=== PATIENT | female | born 1970 | race Caucasian/White ===

== ENCOUNTER 2020-08-29 11:39 | Outpatient (REF) | payer OTHER, SELFPAY | END 2020-08-29 11:40 | disposition home or self-care (01) | LOC: HO.LAB 11:39 | PROVIDERS: Visit Provider Internal Medicine | DX: Z12.4 Encounter for screening for malignant neoplasm of cervix (principal) | CPT/HCPCS: 88142 ==

== ENCOUNTER 2020-08-30 11:20 | Outpatient (REF) | payer OTHER, SELFPAY ==
[2020-08-30 14:27] LABS: MANUAL DIFF FLAG NO
[2020-08-30 14:36] LABS: Basophils Percent Auto 0.6 % (0-2); Eosinophils Absolute Auto 0.1 X10*3/uL (0.0-0.4); Eosinophils Percent Auto 1.5 % (0-4); Hematocrit 37.9 % (37-47); Hemoglobin 12.3 g/dl (12.0-16.0); Imm Gran Abs Auto 0.02 X10*3/uL (0.00-0.03); Imm Gran Pct Auto 0.3 % (0.0-0.4); Lymphocytes Absolute Auto 1.7 X10*3/uL (1.2-4.9); Lymphocytes Percent Auto 26.6 % (20-40); Mean Corpuscular HGB Conc 32.5 g/dl (31.0-35.0); Mean Corpuscular Hemoglobin 28.3 pg (27.0-33.0); Mean Corpuscular Volume 87.3 fL (80-98); Mean Platelet Volume 11.7 fL (9.4-12.3); Monocytes Absolute Auto 0.7 X10*3/uL (0.1-1.2); Neutrophils Absolute Auto 3.9 X10*3/uL (2.0-8.3); Platelet Count 228 X10*3/uL (160-400); Red Blood Count 4.34 X10*6/uL (4.20-5.50); Red Cell Distribution Width 12.7 % (11.0-16.0); White Blood Count 6.5 X10*3/uL (4.8-10.8)
[2020-08-30 15:15] LABS: Alanine Aminotransferase 9 U/L (0-31); Albumin Level 4.1 g/dL (3.5-5.0); Alkaline Phosphatase 85 U/L (39-117); Anion Gap 11 (12-20); Aspartate Amino Transferase 13 U/L (5-31); Blood Urea Nitrogen 14 mg/dL (9-16); Calcium 8.8 mg/dL (8.4-10.2); Carbon Dioxide 27 mmol/L (22-29); Chloride 104 mmol/L (96-108); Cholesterol 163 mg/dL; Estimated Glomerular Filt Rate > 60; Glucose Fasting 74 mg/dL (60-99); HDL Cholesterol 72 mg/dL; Iron 123 mcg/dL (30-160); LDL Cholesterol Calculated 80 mg/dl; Percent Iron Saturation 35 % (15-50); Potassium 3.9 mmol/l (3.3-5.1); Sodium 138 mmol/L (135-145); Total Iron Binding Capacity 347 mcg/dL (228-428); Total Protein 7.4 g/dL (6.5-8.0); Triglycerides 55 mg/dL; Unsaturated Iron Binding 224 ug/dL
[2020-08-30 15:35] LABS: Thyroid Stimulating Hormone 1.29 mIU/mL (0.32-4.0)
== END 2020-08-30 11:21 | disposition home or self-care (01) ==
LOC: HO.HMGCLDS 11:20
PROVIDERS: PCP Internal Medicine; Visit Provider Internal Medicine
DX: Z00.00 Encounter for general adult medical examination without abnormal findings (principal); M06.9 Rheumatoid arthritis, unspecified; F41.9 Anxiety disorder, unspecified; R93.3 Abnormal findings on diagnostic imaging of other parts of digestive tract
CPT/HCPCS: 36415; 80053; 80061; 83540; 84443; 85025

== ENCOUNTER 2020-09-28 08:52 | Outpatient (REF) | payer OTHER, SELFPAY | END 2020-09-28 08:53 | disposition home or self-care (01) | LOC: HO.LAB 08:52 | PROVIDERS: Visit Provider Nurse Practitioner Family | DX: Z20.828 Contact with and (suspected) exposure to other viral communicable diseases (principal); J06.9 Acute upper respiratory infection, unspecified | CPT/HCPCS: U0003 ==

== ENCOUNTER 2021-06-02 09:20 | Outpatient (REF) | payer OTHER, SELFPAY ==
--- NOTE | ~2021-06-02 | XR_ITS ---
EXAMINATION: XR CERVICAL SPINE CLINICAL INFORMATION: Neck pain. COMPARISON: None TECHNIQUE: 3 views of the cervical spine were obtained. FINDINGS: There is normal cervical lordosis. The vertebral heights, alignment and disc heights are normal. No visible acute fracture, dislocation or subluxation seen. There is mild ventral spondylosis C5-C6 disc level. No lytic process. The prevertebral soft tissues are normal. XR/XR cervical spine 2V IMPRESSION: Mild ventral spondylosis C5-C6 disc level. No visible acute fracture or dislocation seen.
--- NOTE | ~2021-06-02 | XR_ITS ---
EXAMINATION: XR KNEE, LEFT CLINICAL INFORMATION: Left knee pain. COMPARISON: None TECHNIQUE: Four views of the left knee. FINDINGS: Jlce-[id number] medial compartment joint space narrowing. Tiny medial and patellofemoral compartment marginal osteophytes. No osseous erosion. No fracture or dislocation. No abnormal soft tissue calcification. No significant joint effusion. XR/XR knee LT 4V IMPRESSION: Gska-pu-czxidefv medial and mild patellofemoral compartment osteoarthritis.
== END 2021-06-02 09:21 | disposition home or self-care (01) ==
LOC: HO.HMGCX 09:20
PROVIDERS: PCP Internal Medicine; Visit Provider Internal Medicine
DX: M25.562 Pain in left knee (principal); M54.2 Cervicalgia
CPT/HCPCS: 72040; 73564

== ENCOUNTER 2021-11-16 10:22 | Outpatient (REF) | payer OTHER, SELFPAY ==
--- NOTE | ~2021-11-16 | MM_ITS ---
EXAMINATION: BONE DENSITOMETRY CLINICAL INDICATION: Encounter for screening for osteoporosis. COMPARISON: Baseline BD dated 11/30/2016. TECHNIQUE: Using a [employer] DXA System (software version: 13.1) manufactured by [employer], dual-energy x-ray absorptiometry was performed of the lumbar spine and left hip. The images are of good technical quality. Summary results are attached. FINDINGS: AP SPINE L2-L4 (L3) (excluding L1 and L3): The data of L1-L4 has been changed to exclude the L1 and L3 vertebral bodies, because degenerative changes at these levels may cause overestimation of lumbar spine density. Current: BMD 1.086 g/cm2, Z-score -1.0, T-score -1.0, normal, 0.2% decrease from baseline (<5% change is not significant). Baseline: BMD 1.088 g/cm2. LEFT FEMUR, NECK: Current: BMD 0.923 g/cm2, Z-score -0.3, T-score -0.8, normal. Baseline: BMD 1.074 g/cm2. LEFT FEMUR, TOTAL: Current: BMD 0.919 g/cm2, Z-score -0.5, T-score -0.7, normal, 11.8% decrease from baseline (<5% change is not significant). Baseline: BMD 1.042 g/cm2. IDENTIFIED RISK FACTORS: Menopause, rheumatoid arthritis. HISTORY OF FRACTURE: Stress fractures feet. MEDICATIONS: Calcium supplements or multivitamin, vitamin D. MM/XR DEXA axial skeleton IMPRESSION: 1. DIAGNOSIS: Normal bone density based on the lowest T-score value of -1.0 in the lumbar spine applying World Health Organization criteria. 2. 10-YEAR FRACTURE RISK PREDICTION, FRAX: Major osteoporotic fracture (clinical spine, forearm, hip or shoulder) 8.7%. Hip fracture 0.5%. 3. Treatment Recommendations: NOF guidelines recommend consideration for treatment in postmenopausal women and men age 50 and older presenting with the following: -A hip or vertebral (clinical or morphometric) fracture. -T-score less than or equal to -2.5 at the femoral neck or spine after appropriate evaluation to exclude secondary causes. -Low bone mass at the hip or spine and a 10-year fracture probability by FRAX of greater than or equal to 3% for hip fracture or greater than or equal to 20% for major osteoporotic fracture based on the [place] adapted WHO algorithm. 4. Other Recommendations: All treatment decisions require clinical judgment and consideration of individual patient factors, including patient preferences, comorbidities, previous drug use, risk factors not captured in the FRAX model (e.g. frailty, falls, vitamin D deficiency, increased bone turnover, interval significant decline in bone density) and possible under or overestimation of fracture risk by FRAX. FUTURE SCAN RECOMMENDATION: People with diagnosed cases of osteoporosis or at high risk for fracture should have regular bone mineral density tests. For patients eligible for Medicare, routine testing is allowed once every 2 years. The testing frequency can be increased to one year for patients who have rapidly progressing disease, those who are receiving or discontinuing medical therapy to restore bone mass, or have additional risk factors.
== END 2021-11-16 10:23 | disposition home or self-care (01) ==
LOC: HO.MAMMO 10:22
PROVIDERS: PCP Internal Medicine; Visit Provider Internal Medicine
DX: Z13.820 Encounter for screening for osteoporosis (principal); M85.80 Other specified disorders of bone density and structure, unspecified site; Z78.0 Asymptomatic menopausal state; M05.9 Rheumatoid arthritis with rheumatoid factor, unspecified; Z79.899 Other long term (current) drug therapy
CPT/HCPCS: 77080

== ENCOUNTER 2022-04-05 09:53 | Outpatient (REF) | payer OTHER, SELFPAY ==
[2022-04-05 11:28] LABS: Hematocrit 37.3 % (37.0-47.0); Hemoglobin 12.2 g/dl (12.0-16.0); Mean Corpuscular HGB Conc 32.7 g/dl (31.0-35.0); Mean Corpuscular Hemoglobin 27.7 pg (27.0-33.0); Mean Corpuscular Volume 84.6 fL (80.0-98.0); Mean Platelet Volume 10.6 fL (9.4-12.3); Platelet Count 371 X10*3/uL (160-400); Red Blood Count 4.41 X10*6/uL (4.20-5.50); Red Cell Distribution Width 12.8 % (11.0-16.0); White Blood Count 9.5 X10*3/uL (4.8-10.8)
[2022-04-05 11:56] LABS: Alanine Aminotransferase 12 U/L (0-31); Alkaline Phosphatase 85 U/L (39-117); Anion Gap 13 (12-20); Aspartate Amino Transferase 9 U/L (5-31); Bilirubin Total 0.6 mg/dL (0.0-1.0); Blood Urea Nitrogen 17 mg/dL (9-16); Calcium 9.6 mg/dL (8.4-10.2); Carbon Dioxide 26 mmol/L (22-29); Chloride 106 mmol/L (96-108); Cholesterol 178 mg/dL; Estimated Glomerular Filt Rate > 60; Glucose Fasting 80 mg/dL (60-99); HDL Cholesterol 82 mg/dL; LDL Cholesterol Calculated 83 mg/dl; Potassium 4.1 mmol/L (3.3-5.1); Sodium 141 mmol/L (135-145); Total Protein 7.5 g/dL (6.5-8.0); Triglycerides 65 mg/dL
[2022-04-05 12:16] LABS: TSH reflex Free T4 1.79 uIU/mL (0.32-4.0); Vitamin D 25-OH Total 49.5 ng/mL (>30)
== END 2022-04-05 09:54 | disposition home or self-care (01) ==
LOC: HO.HMGCLDS 09:53
PROVIDERS: PCP Internal Medicine; Visit Provider Internal Medicine
DX: Z00.00 Encounter for general adult medical examination without abnormal findings (principal)
CPT/HCPCS: 36415; 80053; 80061; 82306; 84443; 85027

== ENCOUNTER 2023-02-07 13:55 | Outpatient (REF) | payer OTHER, SELFPAY ==
[2023-02-07 17:29] LABS: Iron 24 mcg/dL (30-160); Percent Iron Saturation 8 % (15-50); Total Iron Binding Capacity 283 mcg/dL (228-428); Unsaturated Iron Binding 259 ug/dL
[2023-02-07 17:57] LABS: TSH reflex Free T4 0.71 uIU/mL (0.32-4.0); Vitamin B12 494 pg/mL (200-900)
== END 2023-02-07 13:56 | disposition home or self-care (01) ==
LOC: HO.HMGCLDS 13:55
PROVIDERS: PCP Internal Medicine; Visit Provider Internal Medicine
DX: R00.2 Palpitations (principal)
CPT/HCPCS: 36415; 82607; 82746; 83540; 84443

== ENCOUNTER → 2023-02-21 10:55 | Outpatient (REF) | payer OTHER, SELFPAY ==
--- NOTE | 2023-02-21 11:00 | CA_ITS ---
Transthoracic Echocardiogram Patient (Last, First, Middle): Zulma Carias, Gender: Female Date of : 1970 Age: 52 Procedure Date: 02/21/2023 Procedure Type: Transthoracic Echocardiogram Location: OP Height: 167.64 cm Weight: 74.84 kg BSA: 1.84 m2 Heart Rate: 59 bpm BP: 120 / 80 mmHg Centerless Grinder Tender: NAREN Oquendo MD: Cynthia Reilly MD Compressor Battery Pellets: Lizandro Duff MD Symptoms: R00.2 - Palpitations Study Quality: Good ECG Rhythm: Sinus Conclusions: - Essentially normal study Findings Left Ventricle Normal left ventricular size, thickness, and systolic function. The visually estimated ejection fraction is between 55-60%. Diastolic function is normal for age. Right Ventricle Normal right ventricular cavity size and systolic function. Atria Both atria are normal in size. There is no evidence of interatrial shunt. Aortic Valve The aortic valve structure and function is likely normal. There is no aortic valve stenosis. There is no aortic valve regurgitation. Mitral Valve Normal mitral valve structure and function. There is trace mitral valve regurgitation. There is no mitral valve stenosis. Pulmonic Valve The pulmonic valve is likely normal. Tricuspid Valve Normal tricuspid valve structure. There is trace tricuspid valve regurgitation. The right ventricular systolic pressure is normal. The right ventricular systolic pressure is 21 mmHg. Normal right atrial pressure. There is no evidence of pulmonary hypertension. Great Vessels All visible segments of the aorta are normal in size. The pulmonary artery was not well visualized. Venous The inferior vena cava is normal in size and collapses greater than 50% with inspiration. Pericardium/Pleural There is no evidence of pericardial effusion. Prior Study Comparison No prior study available for comparison. Measurements 2D Linear Measurements IVSd: 0.95 0.6-0.9/0.6-1.0 cm LVIDd: 5.39 3.9-5.3/4.2-5.9 cm LVIDd Index: 2.93 2.4-3.2/2.2-3.1 cm/m2 LVIDs: 3.49 2.0-3.6 cm LVPWd: 0.98 0.7-1.1 cm LA Diam: 4.10 2.7-3.8/3.0-4.0 cm LAIDs Index: 2.23 1.5-2.3 cm/m2 LV Mass: 243.39 67-162/88-224 g LV Mass Index: 132.28 43-95/49-115 g/m2 LVOT Diam: 2.00 3.0+(-)1.3 cm 2D Systolic Function EF 4C: 54.50 >55% EF 2C: 59.20 >55% EF BiP: 56.40 >55% Mitral Valve MV Pk E: 0.78 MV PK A: 0.69 MV Decel Time: 230.00 E/A: 1.10 E'Lateral: 11.10 E'Medial: 9.03 E/E' Med: 8.60 E/E' Lat: 7.00 PHT: 67.00 MVA PHT: 3.28 Decel Coles: 3.38 Aortic Valve AoV Pk Toby: 1.51 AoV Mn Toby: 1.07 AoV VTI: 0.38 AoV Pk Grad: 9.00 Aov Mn Grad: 5.00 WEST Cont.VTI: 2.19 LVOT LVOT Pk Toby: 1.03 LVOT Mn Toby: 0.77 LVOT VTI: 0.26 LVOT Pk Grad: 4.00 LVOT Mn Grad: 3.00 LVOT Diam: 2.00 LVOT Area: 3.14 Diastolic Function MV Pk E: 0.78 MV Pk A: 0.69 E/A: 1.10 E'Medial: 9.03 E/E' Med: 8.60 E' Laterial: 11.10 E/E' Lat: 7.00 Right Ventricle TAPSE (mm): 29.70 TVS' Toby: 12.90 Tricuspid Valve TR Pk Toby: 2.13 TR Pk Grad: 18.00 RA Press: 3.00 RVSP: 21.00 Great Vessels Aorta Sinus of Valsalva: 3.10 2.0-3.5 cm Ao Asc: 3.30 2.1-3.4 cm Pulmonary Valve PV Pk Toby: 0.89 Peak PV Grad: 3.00 Updated in Other Vendor System with Status of Final Lizandro Duff MD electronically signed on 02/21/2023 5:50:16 PM with status of Final
--- NOTE | 2023-02-21 11:00 | HM_ITS ---
Conclusion: 1. Patient was monitored for total period of 2 days 2. Baseline was normal sinus rhythm with average heart of 74 beats per minute 3. No significant pauses noted 4. Rare PACs noted 5. No patient reported events MTDD
== END ==
LOC: HO.CARD 10:55
PROVIDERS: Visit Provider Internal Medicine
DX: R00.2 Palpitations (principal)
CPT/HCPCS: 93225; 93306

== ENCOUNTER 2023-03-30 08:24 | Outpatient (REF) | payer OTHER, SELFPAY ==
[2023-03-30 11:07] LABS: MANUAL DIFF FLAG NO
[2023-03-30 11:09] LABS: Basophils Percent Auto 0.5 % (0-2); Eosinophils Absolute Auto 0.2 X10*3/uL (0.0-0.4); Eosinophils Percent Auto 2.6 % (0-4); Hematocrit 36.5 % (37.0-47.0); Hemoglobin 11.9 g/dl (12.0-16.0); Imm Gran Abs Auto 0.03 X10*3/uL (0.00-0.03); Imm Gran Pct Auto 0.4 % (0.0-0.4); Lymphocytes Absolute Auto 1.8 X10*3/uL (1.2-4.9); Lymphocytes Percent Auto 24.2 % (20-40); Mean Corpuscular HGB Conc 32.6 g/dl (31.0-35.0); Mean Platelet Volume 10.8 fL (9.4-12.3); Monocytes Absolute Auto 0.7 X10*3/uL (0.1-1.2); Monocytes Percent Auto 10.1 % (2-11); Neutrophils Absolute Auto 4.6 x10*3/uL (2.0-8.3); Neutrophils Percent Auto 62.2 % (45-73); Platelet Count 332 X10*3/uL (160-400); Red Cell Distribution Width 13.1 % (11.0-16.0); White Blood Count 7.4 X10*3/uL (4.8-10.8)
[2023-03-30 11:29] LABS: Iron 40 mcg/dL (30-160); Percent Iron Saturation 15 % (15-50); Total Iron Binding Capacity 261 mcg/dL (228-428); Unsaturated Iron Binding 221 ug/dL
== END 2023-03-30 08:25 | disposition home or self-care (01) ==
LOC: HO.HMGCLDS 08:24
PROVIDERS: PCP Internal Medicine; Visit Provider Internal Medicine
DX: E61.1 Iron deficiency (principal)
CPT/HCPCS: 36415; 83540; 85025

== ENCOUNTER 2023-04-02 09:59 | Outpatient (REF) | payer OTHER, SELFPAY ==
[2023-04-05 02:29] LABS: HPV mRNA E6/E7 Not Detected (Not Detected)
== END 2023-04-02 10:00 | disposition home or self-care (01) ==
LOC: HO.LNP 09:59
PROVIDERS: Visit Provider Internal Medicine
DX: Z00.00 Encounter for general adult medical examination without abnormal findings (principal); Z12.4 Encounter for screening for malignant neoplasm of cervix; Z11.51 Encounter for screening for human papillomavirus (HPV); E55.9 Vitamin D deficiency, unspecified; E61.1 Iron deficiency; M06.9 Rheumatoid arthritis, unspecified
CPT/HCPCS: 87624; 88142

== ENCOUNTER 2023-08-23 08:00 | Outpatient (AMB) | payer OTHER, SELFPAY ==
[2023-08-23 08:01] VITALS: BP 120/74; PULSE 71; O2SAT 99; BMI 27.8
--- NOTE | 2023-08-23 08:01 | A.OFFPC_ITS ---
Vital Signs 08/23/23 08:01 Height 5 ft 6 in Weight 172 lb BMI 27.8 BP 120/74 Blood Pressure Location Lt brachial Position Sitting Pulse 71 Pulse Source Pulse Oximeter Pulse Oximetry (%) 99 Oxygen Delivery Method Room Air Intake Visit Reasons: arthritis, 30 min. Intake Note: Pt is here today for a follow up visit on arthritis. Allergies No Known Allergies Allergy (Verified 08/23/23 08:04) Medication List - Last Reconciled 08/23/23 by Cynthia Reilly MD cholecalciferol (vitamin D3) 25 mcg PO DAILY ferrous sulfate (Feosol) 325 mg PO DAILY folic acid 1 mg PO DAILY glucosamine HCl 500 mg PO DAILY infliximab-dyyb (Inflectra) IV lorazepam 0.5 mg PO DAILY PRN magnesium 250 mg PO DAILY methotrexate sodium 2.5 mg PO 3XW prednisone 10 mg PO DAILY PRN turmeric root extract 500 mg PO DAILY zinc 50 mg PO DAILY Tobacco use date assessed: 08/23/23 Dental Screening Dental Screen Date: 08/23/23 Did you have a dental visit in the last 12 months?: Yes Did you have a dental problem in the last 6 months where you did not have access to dental care?: No Was dental information given to patient?: Patient has dentist HPI arthritis, 30 min. HPI Details Pt presents for f/u arthritis. Pt c/o frequent flare ups. She f/u with [facility] and started Methotrexate with some improvement. [facility] Medical History (Updated 08/23/23 @ 08:47 by Cynthia Reilly MD) Knee pain, left Neck pain Joint pain, knee Annual physical exam Abnormal colonoscopy History of mammogram Anxiety Rheumatoid arthritis Surgical History No pertinent past surgical history Family History Father HTN (hypertension) Stroke Mother No problems noted. Social History Housing: House Alcohol intake: never Patient Tobacco Use Status: Never used Tobacco e-Cigarette/Vaping Use: Never Used Second Hand Smoke Exposure: No service: No Current occupational status: employed Cognitive needs: No Hearing needs: No Vision needs: Yes Questionnaire Thrive Questionnaire Date Thrive assessed: 04/02/23 AUDIT C Alcohol Use Questionnaire (AUDIT-C) 1. How often do you have a drink containing alcohol?: Never 3. How often do you have six or more drinks on one occasion?: Never Total Score: 0 JASWINDER-7 AMB Questionnaire JASWINDER-7 Date JASWINDER - 7 assessed: 04/02/23 Source: Developed by Drs. Brandon Payan, Goldie Pedersen, Zach Rodríguez and colleagues, with an educational caitlyn from [employer]. Review of Systems Const All systems reviewed & are unremarkable except as noted in HPI and below Reports no additional complaints Eyes Reports no additional complaints ENT Reports no additional complaints Card Reports no additional complaints Resp Reports no additional complaints GI Reports no additional complaints Reports no additional complaints Physical exam (Primary Care) Vital Signs: Last Vital Signs Pulse 71 08/23/23 08:01 BP 120/74 08/23/23 08:01 Pulse Ox 99 08/23/23 08:01 Oxygen Delivery Method Room Air 08/23/23 08:01 BMI result Body Mass Index 27.8 Tobacco/Smoking Status: Tobacco use Status Tobacco use date assessed 08/23/23 08/23/23 08:08 Patient Tobacco Use Status Never used Tobacco 08/23/23 08:08 e-Cigarette/Vaping Use Never Used 08/23/23 08:08 Thrive Assessment: Date of Thrive Assessment Date Thrive assessed 04/02/23 08/23/23 08:08 Const General: no acute distress HENMT Ears: hearing grossly normal bilaterally Face and sinus: Yes normal facial exam Eyes General: appearance normal, both eyes and all related structures Resp Auscultation: clear to auscultation bilaterally Cardio Rhythm: regular rhythm Heart sounds: S1 normal heart sound present and S2 normal heart sound present GI Inspection: Yes normal to inspection Palpation (GI): Soft to palpation Assessment and Plan Assessment & Plan (1) Vitamin D deficiency: Code(s): E55.9 - Vitamin D deficiency, unspecified Plan: check the level (2) Iron deficiency: Code(s): E61.1 - Iron deficiency Plan: cont Iron supplement , check the level (3) Rheumatoid arthritis: Comment: f/u ATC Code(s): M06.9 - Rheumatoid arthritis, unspecified Plan: f/u with rheumatology, try Gabapentin 100 mg prn (4) Annual physical exam: Code(s): Z00.00 - Encounter for general adult medical examination without abnormal findings (5) Knee pain, bilateral: Comment: MILD-MODERATE OA of both knees Code(s): M25.561 - Pain in right knee; M25.562 - Pain in left knee Plan: refer to PT Orders: Orders Complete Blood Count Auto Diff Today E55.9 - Vitamin D deficiency, unspecified, E61.1 - Iron deficiency, M06.9 - Rheumatoid arthritis, unspecified, Z00.00 - Encounter for general adult medical examination without abnormal findings Vitamin D 25-OH Total Today E55.9 - Vitamin D deficiency, unspecified, E61.1 - Iron deficiency, M06.9 - Rheumatoid arthritis, unspecified, Z00.00 - Encounter for general adult medical examination without abnormal findings PT Evaluation and Treatment Today M25.561 - Pain in right knee, M25.562 - Pain in left knee Comprehensive [place]. Panel Fast Today E55.9 - Vitamin D deficiency, unspecified, E61.1 - Iron deficiency, M06.9 - Rheumatoid arthritis, unspecified, Z00.00 - En counter for general adult medical examination without abnormal findings Lipid Panel Today E55.9 - Vitamin D deficiency, unspecified, E61.1 - Iron deficiency, M06.9 - Rheumatoid arthritis, unspecified, Z00.00 - Encounter for general adult medical examination without abnormal findings IRON PROFILE Today E55.9 - Vitamin D deficiency, unspecified, E61.1 - Iron deficiency, M06.9 - Rheumatoid arthritis, unspecified, Z00.00 - Encounter for general adult medical examination without abnormal findings TSH reflex Free T4 Today E55.9 - Vitamin D deficiency, unspecified, E61.1 - Iron deficiency, M06.9 - Rheumatoid arthritis, unspecified, Z00.00 - Encounter for general adult medical examination without abnormal findings Medications: New gabapentin 100 mg PO TID 60 caps 0RF Coding Level of Care Code Est Pt Level 3 (46631) Diagnoses Vitamin D deficiency E55.9 Iron deficiency E61.1 Rheumatoid arthritis M06.9 Annual physical exam Z00.00 Knee pain, bilateral M25.561; M25.562
== END 2023-08-23 10:35 | disposition home or self-care (01) ==
PROVIDERS: PCP Internal Medicine; Visit Provider Internal Medicine
DX: E55.9 Vitamin D deficiency, unspecified (principal); E61.1 Iron deficiency; M06.9 Rheumatoid arthritis, unspecified; Z00.00 Encounter for general adult medical examination without abnormal findings; M25.561 Pain in right knee; M25.562 Pain in left knee
CPT/HCPCS: 99213

== ENCOUNTER 2023-08-23 08:35 | Outpatient (REF) | payer OTHER, SELFPAY ==
[2023-08-23 12:01] LABS: MANUAL DIFF FLAG NO
[2023-08-23 12:27] LABS: Basophils Absolute Auto 0.1 X10*3/uL (0.0-0.2); Basophils Percent Auto 0.9 % (0-2); Eosinophils Absolute Auto 0.2 X10*3/uL (0.0-0.4); Eosinophils Percent Auto 2.7 % (0-4); Hematocrit 36.5 % (37.0-47.0); Hemoglobin 11.9 g/dl (12.0-16.0); Imm Gran Abs Auto 0.03 X10*3/uL (0.00-0.03); Imm Gran Pct Auto 0.4 % (0.0-0.4); Lymphocytes Absolute Auto 2.7 X10*3/uL (1.2-4.9); Lymphocytes Percent Auto 38.5 % (20-40); Mean Corpuscular HGB Conc 32.6 g/dl (31.0-35.0); Mean Corpuscular Hemoglobin 27.3 pg (27.0-33.0); Mean Corpuscular Volume 83.7 fL (80.0-98.0); Mean Platelet Volume 11.5 fL (9.4-12.3); Monocytes Absolute Auto 0.6 X10*3/uL (0.1-1.2); Neutrophils Absolute Auto 3.5 x10*3/uL (2.0-8.3); Neutrophils Percent Auto 49.5 % (45-73); Platelet Count 345 X10*3/uL (160-400); Red Blood Count 4.36 X10*6/uL (4.20-5.50)
[2023-08-23 12:54] LABS: Alanine Aminotransferase 8 U/L (0-31); Albumin Level 3.9 g/dL (3.5-5.0); Alkaline Phosphatase 83 U/L (39-117); Anion Gap 13 (12-20); Aspartate Amino Transferase 12 U/L (5-31); Bilirubin Total 0.5 mg/dL (0.0-1.0); Blood Urea Nitrogen 12 mg/dL (9-16); Calcium 9.8 mg/dL (8.4-10.2); Carbon Dioxide 24 mmol/L (22-29); Chloride 106 mmol/L (96-108); Cholesterol 176 mg/dL (<200); Estimated Glomerular Filt Rate > 60; Glucose Fasting 87 mg/dL (60-99); HDL Cholesterol 66 mg/dL (>40); Iron 76 mcg/dL (30-160); LDL Cholesterol Calculated 91 mg/dL (<100); Percent Iron Saturation 27 % (15-50); Potassium 3.6 mmol/L (3.3-5.1); Sodium 139 mmol/L (135-145); Total Iron Binding Capacity 279 mcg/dL (228-428); Total Protein 7.8 g/dL (6.5-8.0); Triglycerides 99 mg/dL (<150); Unsaturated Iron Binding 203 ug/dL
[2023-08-23 13:12] LABS: TSH reflex Free T4 1.96 uIU/mL (0.32-4.0); Vitamin D 25-OH Total 49.7 ng/mL (>30)
[2023-08-23 13:19] LABS: Folate 14.4 ng/mL (> or = 4.0); Vitamin B12 1144 pg/mL (200-900)
== END 2023-08-23 08:36 | disposition home or self-care (01) ==
LOC: HO.HMGCLDS 08:35
PROVIDERS: PCP Internal Medicine; Visit Provider Internal Medicine
DX: Z00.00 Encounter for general adult medical examination without abnormal findings (principal); E55.9 Vitamin D deficiency, unspecified; E61.1 Iron deficiency; M06.9 Rheumatoid arthritis, unspecified; R79.89 Other specified abnormal findings of blood chemistry
CPT/HCPCS: 36415; 80053; 80061; 82306; 82607; 82746; 83540; 84443; 85025

== ENCOUNTER 2024-04-04 08:21 | Outpatient (REF) | payer OTHER, SELFPAY ==
[2024-04-04 11:04] LABS: MANUAL DIFF FLAG NO
[2024-04-04 11:14] LABS: Basophils Absolute Auto 0.1 X10*3/uL (0.0-0.2); Basophils Percent Auto 0.9 % (0-2); Eosinophils Absolute Auto 0.2 X10*3/uL (0.0-0.4); Eosinophils Percent Auto 2.5 % (0-4); Hematocrit 38.3 % (37.0-47.0); Hemoglobin 12.7 g/dl (12.0-16.0); Imm Gran Abs Auto 0.03 X10*3/uL (0.00-0.03); Imm Gran Pct Auto 0.5 % (0.0-0.4); Lymphocytes Absolute Auto 2.6 X10*3/uL (1.2-4.9); Lymphocytes Percent Auto 39.9 % (20-40); Mean Corpuscular HGB Conc 33.2 g/dl (31.0-35.0); Mean Corpuscular Hemoglobin 28.6 pg (27.0-33.0); Mean Corpuscular Volume 86.3 fL (80.0-98.0); Mean Platelet Volume 10.8 fL (9.4-12.3); Monocytes Absolute Auto 0.5 X10*3/uL (0.1-1.2); Monocytes Percent Auto 6.9 % (2-11); Neutrophils Absolute Auto 3.2 x10*3/uL (2.0-8.3); Neutrophils Percent Auto 49.3 % (45-73); Platelet Count 316 X10*3/uL (160-400); Red Blood Count 4.44 X10*6/uL (4.20-5.50); Red Cell Distribution Width 13.2 % (11.0-16.0); White Blood Count 6.5 X10*3/uL (4.8-10.8)
[2024-04-04 11:44] LABS: Alanine Aminotransferase 11 U/L (0-31); Albumin Level 3.8 g/dL (3.5-5.0); Aspartate Amino Transferase 11 U/L (5-31); C Reactive Protein 0.37 mg/dL (< or = 0.50); Estimated Glomerular Filt Rate > 60
[2024-04-04 11:51] LABS: Erythrocyte Sedimentation Rate 13 MM/HR (0-20)
[2024-04-04 12:00] LABS: Alanine Aminotransferase 11 U/L (0-31); Albumin Level 3.8 g/dL (3.5-5.0); Alkaline Phosphatase 86 U/L (39-117); Anion Gap 11 (12-20); Aspartate Amino Transferase 13 U/L (5-31); Bilirubin Total 0.4 mg/dL (0.0-1.0); Blood Urea Nitrogen 15 mg/dL (9-16); Calcium 9.4 mg/dL (8.4-10.2); Carbon Dioxide 25 mmol/L (22-29); Chloride 109 mmol/L (96-108); Cholesterol 179 mg/dL (<200); Estimated Glomerular Filt Rate > 60; Glucose Fasting 85 mg/dL (60-99); HDL Cholesterol 72 mg/dL (>40); Iron 70 mcg/dL (30-160); LDL Cholesterol Calculated 94 mg/dL (<100); Percent Iron Saturation 24 % (15-50); Potassium 3.7 mmol/L (3.3-5.1); Sodium 141 mmol/L (135-145); Total Iron Binding Capacity 294 mcg/dL (228-428); Total Protein 7.6 g/dL (6.5-8.0); Triglycerides 65 mg/dL (<150); Unsaturated Iron Binding 224 ug/dL
[2024-04-04 12:06] LABS: Vitamin D 25-OH Total 41.1 ng/mL (>30)
== END 2024-04-04 08:22 | disposition home or self-care (01) ==
LOC: HO.HMGCLDS 08:21
PROVIDERS: Internal Medicine Rheumatology; PCP Internal Medicine; Visit Provider Internal Medicine
DX: Z00.00 Encounter for general adult medical examination without abnormal findings (principal); M06.9 Rheumatoid arthritis, unspecified; E66.1 Drug-induced obesity; E55.9 Vitamin D deficiency, unspecified; Z79.899 Other long term (current) drug therapy
CPT/HCPCS: 36415; 80053; 80061; 82040; 82306; 82565; 83540; 84443; 84450; 84460; 85025; 85652; 86140

== ENCOUNTER 2024-04-07 10:31 | Outpatient (AMB) | payer OTHER, SELFPAY ==
--- NOTE | 2024-04-07 10:34 | A.OFFPC_ITS ---
Vital Signs 04/07/24 10:39 Height 5 ft 6 in Weight 174 lb BMI 28.1 BP 128/66 Blood Pressure Location Lt brachial Position Sitting Pulse 56 Pulse Source Pulse Oximeter Pulse Oximetry (%) 98 Oxygen Delivery Method Room Air Intake Visit Reasons: PE Intake Note: Pt is here today for PE. Allergies No Known Allergies Allergy (Verified 04/07/24 10:40) Medication List - Last Reconciled 04/07/24 by Cynthia Reilly MD cholecalciferol (vitamin D3) 25 mcg PO DAILY ferrous sulfate (Feosol) 325 mg PO DAILY folic acid 1 mg PO DAILY gabapentin 100 mg PO TID glucosamine HCl 500 mg PO DAILY infliximab-dyyb (Inflectra) IV lorazepam 0.5 mg PO DAILY PRN magnesium 250 mg PO DAILY methotrexate sodium 2.5 mg PO 3XW prednisone 5 mg PO DAILY turmeric root extract 500 mg PO DAILY zinc 50 mg PO DAILY Tobacco use date assessed: 04/07/24 Dental Screening Dental Screen Date: 04/07/24 Did you have a dental visit in the last 12 months?: Yes Did you have a dental problem in the last 6 months where you did not have access to dental care?: No Was dental information given to patient?: Patient has dentist HPI PE HPI Details Pt presents for PE. PFSH Medical History High serum vitamin B12 Knee pain, left Neck pain Joint pain, knee Annual physical exam Abnormal colonoscopy History of mammogram Anxiety Rheumatoid arthritis Surgical History No pertinent past surgical history Family History Father HTN (hypertension) Stroke Mother No problems noted. Social History Housing: House Alcohol intake: never Patient Tobacco Use Status: Never used Tobacco e-Cigarette/Vaping Use: Never Used Second Hand Smoke Exposure: No service: No Current occupational status: employed Cognitive needs: No Hearing needs: No Vision needs: Yes Questionnaire PHQ-9 Over the last 2 weeks, how often have you been bothered by any of the following problems? 1. Little interest or pleasure in doing things: not at all 2. Feeling down, depressed, or hopeless: several days 3. Trouble falling or staying asleep, or sleeping too much: several days 4. Feeling tired or having little energy: several days 5. Poor appetite or overeating: several days 6. Feeling bad about yourself - or that you are a failure or have let yourself or your family down: not at all 7. Trouble concentrating on things, such as reading the newspaper or watching television: not at all 8. Moving or speaking so slowly that other people could have noticed. Or the opposite - being so fidgety or restless that you have been moving around a lot more than usual: several days 9. Thoughts that you would be better off or of hurting yourself in some way: not at all Total score: 5 Depression Screening Interpretation: Negative Depression Screening Done: Yes Source: Developed by Drs. Brandon Payan, Goldie Pedersen, Zach Rodríguez and colleagues, with an educational caitlyn from [employer]. Thrive Questionnaire Date Thrive assessed: 04/07/24 I am a: Patient What is your living situation today?: I have a steady place to live Within the past 12 months, did the food you bought not last and you didn't have the money to get more?: Never true Within the past 12 months, did you worry whether your food would run out before you got money to buy more?: Never true Do you have trouble paying for medicines?: No Do you have trouble getting transportation to medical appointments?: No Do you have trouble paying your heating and electricity bill?: No Do you have trouble taking care of your child, family member or friend?: No Do you have trouble with day-to-day activities such as bathing, preparing meals, shopping, managing finances, etc.?: No Are you currently unemployed and looking for a job?: No Are you interested in more education?: No Please select the resources that you would like help with: None THRIVE Score: 0 AUDIT C Alcohol Use Questionnaire (AUDIT-C) 1. How often do you have a drink containing alcohol?: Monthly or less 2. How many drinks containing alcohol do you have on a typical day when you are drinking?: 1 or 2 3. How often do you have six or more drinks on one occasion?: Never Total Score: 1 JASWINDER-7 AMB Questionnaire JASWINDER-7 Date JASWINDER - 7 assessed: 04/07/24 Feeling nervous, anxious, or on edge: 1 = Several days Not being able to stop or control worryin = Several days Worrying too much about different things: 1 = Several days Trouble relaxin = Several days Being so restless that it is hard to sit still: 1 = Several days Becoming easily annoyed or irritable: 1 = Several days Feeling afraid as if something awful might happen: 1 = Several days Total JASWINDER-7 score (0-4 normal; 5-9 mild; 10-14 moderate; 15-21 severe): 7 Source: Developed by Drs. Brandon Payan, Goldie Pedersen, Zach Rodríguez and colleagues, with an educational caitlyn from [employer]. Review of Systems Const All systems reviewed & are unremarkable except as noted in HPI and below Reports no additional complaints Eyes Reports no additional complaints ENT Reports no additional complaints Card Reports no additional complaints Resp Reports no additional complaints GI Reports no additional complaints Reports no additional complaints Physical exam (Primary Care) Vital Signs: Last Vital Signs Pulse 56 04/07/24 10:39 BP 128/66 04/07/24 10:39 Pulse Ox 98 04/07/24 10:39 Oxygen Delivery Method Room Air 04/07/24 10:39 BMI result Body Mass Index 28.1 Tobacco/Smoking Status: Tobacco use Status Tobacco use date assessed 04/07/24 04/07/24 10:51 Patient Tobacco Use Status Never used Tobacco 04/07/24 10:51 e-Cigarette/Vaping Use Never Used 04/07/24 10:35 PHQ-9: PHQ-9 Score PHQ-9: Total score 5 04/07/24 10:51 Depression Screening Interpretation: Negative Thrive Assessment: Date of Thrive Assessment Date Thrive assessed 04/07/24 04/07/24 10:51 Const General: no acute distress HENMT Head: Yes normal to inspection Ears: hearing grossly normal bilaterally General nose exam: Normal external nose present Face and sinus: Yes normal facial exam Mouth: Normal oral and palatal mucosa present Throat: Yes posterior oropharynx normal Eyes General: appearance normal, both eyes and all related structures Neck Neck: Yes no lymphadenopathy and Yes supple Resp Effort & Inspection: normal respiratory effort Auscultation: clear to auscultation bilaterally Cardio Rhythm: regular rhythm Heart sounds: S1 normal heart sound present and S2 normal heart sound present GI Inspection: Yes normal to inspection Palpation (GI): Soft to palpation Percussion: Yes normal to percussion Auscultation: normal bowel sounds Assessment and Plan Assessment & Plan (1) Rheumatoid arthritis: Comment: f/u ATC Code(s): M06.9 - Rheumatoid arthritis, unspecified Plan: f/u with rheumatology (2) Annual physical exam: Code(s): Z00.00 - Encounter for general adult medical examination without abnormal findings Plan: well balanced diet, regular exercise discussed, patient is up-to-date with the mammogram colonoscopy final Pap smear (3) Vitamin D deficiency: Code(s): E55.9 - Vitamin D deficiency, unspecified Orders: Orders Complete Blood Count Auto Diff 1 Year E55.9 - Vitamin D deficiency, unspecified, M06.9 - Rheumatoid arthritis, unspecified, Z00.00 - Encounter for general adult medical examination without abnormal findings Comprehensive [place]. Panel Fast 1 Year E55.9 - Vitamin D deficiency, unspecified, M06.9 - Rheumatoid arthritis, unspecified, Z00.00 - Encounter for general adult medical examination without abnormal findings Lipid Panel 1 Year E55.9 - Vitamin D deficiency, unspecified, M06.9 - Rheumatoid arthritis, unspecified, Z00.00 - Encounter for general adult medical examination without abnormal findings TSH reflex Free T4 1 Year E55.9 - Vitamin D deficiency, unspecified, M06.9 - Rheumatoid arthritis, unspecified, Z00.00 - Encounter for general adult medical examination without abnormal findings Vitamin D 25-OH Total 1 Year E55.9 - Vitamin D deficiency, unspecified, M06.9 - Rheumatoid arthritis, unspecified, Z00.00 - Encounter for general adult medical examination without abnormal findings Medications: Discontinued gabapentin Discontinued Reason: Doctor's Order 100 mg PO TID 60 caps 0RF Coding Level of Care Code Est Pt Prev Care 40-64y(49729) Diagnoses Rheumatoid arthritis M06.9 Annual physical exam Z00.00 Vitamin D deficiency E55.9
[2024-04-07 10:39] VITALS: BP 128/66; PULSE 56; O2SAT 98; BMI 28.1
== END 2024-04-07 11:41 | disposition home or self-care (01) ==
PROVIDERS: Visit Provider Internal Medicine
DX: M06.9 Rheumatoid arthritis, unspecified (principal); Z00.00 Encounter for general adult medical examination without abnormal findings; E55.9 Vitamin D deficiency, unspecified
CPT/HCPCS: 99396

== ENCOUNTER 2024-04-29 10:36 | Outpatient (AMB) | payer OTHER, SELFPAY ==
[2024-04-29 10:36] VITALS: BP 110/80; PULSE 69; O2SAT 98; BMI 28.6
--- NOTE | 2024-04-29 10:36 | MHC.OFFWIV ---
Intake Vital Signs 04/29/24 10:36 Height 5 ft 6 in Weight 177 lb 8 oz BMI 28.6 BP 110/80 Blood Pressure Location Rt brachial Position Sitting Pulse 69 Pulse Source Pulse Oximeter Pulse Oximetry (%) 98 Oxygen Delivery Method Room Air Intake Visit Reasons: EP ear pain RT ear 10 days Intake Note: pt is here today for ear pain rt ear started 10 days ago Patient Tobacco Use Status: Never used Tobacco Allergies No Known Allergies Allergy (Verified 04/29/24 10:39) Medication List - Last Reconciled 04/29/24 by Sirena Jones MD cholecalciferol (vitamin D3) 25 mcg PO DAILY ferrous sulfate (Feosol) 325 mg PO DAILY folic acid 1 mg PO DAILY infliximab-dyyb (Inflectra) IV lorazepam 0.5 mg PO DAILY PRN magnesium 250 mg PO DAILY methotrexate sodium 12.5 mg PO 3XW prednisone 5 mg PO DAILY turmeric root extract 500 mg PO DAILY zinc 50 mg PO DAILY Do you need a note to return to daycare/school/sports/work: No HPI EP ear pain RT ear 10 days HPI Details 53-year-old female with a history of rheumatoid arthritis and is on biologic came in with a chief complaint of ear pain for the past 10 days duration Patient says that she just saw her technical support professional and her medications were increased As she is having flare-up of her rheumatoid arthritis. She is also on prednisone 2.5 mg b.i.d. which she has been taking for a while There is no fever no chills Patient says that it all started after bike ride 10 days ago On examination there is no ear infection, however her temporomandibular joint is tender to pressure I would recommend to go up on prednisone, start taking 10 mg b.i.d. for 5 days and then taper it off to 5 mg b.i.d. for 3 days and then back to 2.5 mg b.i.d. as her baseline dose She is taking Tylenol as well for pain. Review system is negative for any nausea vomiting chest pain shortness a breath [facility] Medical History High serum vitamin B12 Knee pain, left Neck pain Joint pain, knee Annual physical exam Abnormal colonoscopy History of mammogram Anxiety Rheumatoid arthritis Surgical History No pertinent past surgical history Family History Father HTN (hypertension) Stroke Mother No problems noted. Social History Housing: House Alcohol intake: never Patient Tobacco Use Status: Never used Tobacco e-Cigarette/Vaping Use: Never Used Second Hand Smoke Exposure: No service: No Current occupational status: employed Cognitive needs: No Hearing needs: No Vision needs: Yes Review of Systems Const All systems reviewed & are unremarkable except as noted in HPI and below Physical Exam Vital Signs: Last Vital Signs Pulse 69 04/29/24 10:36 BP 110/80 04/29/24 10:36 Pulse Ox 98 04/29/24 10:36 Oxygen Delivery Method Room Air 04/29/24 10:36 BMI result Body Mass Index 28.6 Const General: no acute distress Orientation/consciousness: patient oriented x3 HEENT Head images: 1. Site of pain with pressure over the joint, no pain with tricuspid pressure Eyes General: appearance normal, both eyes and all related structures Resp Effort & Inspection: normal respiratory effort and able to speak in complete sentences Neuro General: patient oriented x3 Psych Mental Status: mental status grossly normal Assessment & Plan Assessment & Plan (1) Arthralgia of right temporomandibular joint: Code(s): M26.621 - Arthralgia of right temporomandibular joint Plan 53-year-old female with a history of rheumatoid arthritis and is on biologic came in with a chief complaint of ear pain for the past 10 days duration Patient says that she just saw her technical support professional and her medications were increased As she is having flare-up of her rheumatoid arthritis. She is also on prednisone 2.5 mg b.i.d. which she has been taking for a while There is no fever no chills Patient says that it all started after bike ride 10 days ago On examination there is no ear infection, however her temporomandibular joint is tender to pressure I would recommend to go up on prednisone, start taking 10 mg b.i.d. for 5 days and then taper it off to 5 mg b.i.d. for 3 days and then back to 2.5 mg b.i.d. as her baseline dose She is taking Tylenol as well for pain. Review system is negative for any nausea vomiting chest pain shortness a breath Coding Level of Care Code Est Pt Level 3 (52030) Diagnoses Arthralgia of right temporomandibular joint M26.621
== END 2024-04-29 11:50 | disposition home or self-care (01) ==
PROVIDERS: PCP Internal Medicine; Visit Provider Internal Medicine
DX: M26.621 Arthralgia of right temporomandibular joint (principal)
CPT/HCPCS: 99213

== ENCOUNTER 2024-07-08 11:04 | Outpatient (AMB) | payer OTHER, SELFPAY ==
[2024-07-08 11:06] VITALS: BP 132/88; PULSE 67; O2SAT 98; BMI 28.9
--- NOTE | 2024-07-08 11:06 | AM.OFFWIN_ITS ---
Intake Vital Signs 07/08/24 11:06 Height 5 ft 6 in Weight 179 lb 6 oz BMI 28.9 BP 132/88 Blood Pressure Location Lt brachial Position Sitting Pulse 67 Pulse Source Pulse Oximeter Pulse Oximetry (%) 98 Oxygen Delivery Method Room Air Intake Visit Reasons: ep rt toe nail black spot Intake Note: Zulma is a 54 year old female who presents to the office today for her right big toe nail that has a black spot on it. Pt states she noticed the spot 3 weeks ago. Pt denies any injury to her toe. Pt also denies any pain. Patient Tobacco Use Status: Never used Tobacco Allergies No Known Allergies Allergy (Verified 07/08/24 11:08) HPI HPI Comments History of Present Illness Details Patient is a 54-year-old female complaining of a black spot on her left great toenail at the base. She denies any injury to the toenail. She states she has bruised her toenails before and usually it is extremely painful when it happens and she has no recollection of any trauma to her toenail. She states she noticed it on June 17 and it does not seem to be growing out so she is concerned. She denies any pain in her toe and denies any loss of range of motion or swelling. She is also complaining of an apparent pimple on her left lower eyelid, she states it has been there for 2 days and does not seem to be going away and she is not quite sure what it is. She denies any vision changes or pain to the area [facility] Medical History High serum vitamin B12 Knee pain, left Neck pain Joint pain, knee Annual physical exam Abnormal colonoscopy History of mammogram Anxiety Rheumatoid arthritis Surgical History No pertinent past surgical history Family History Father HTN (hypertension) Stroke Mother No problems noted. Social History Housing: House Alcohol intake: never Patient Tobacco Use Status: Never used Tobacco e-Cigarette/Vaping Use: Never Used Second Hand Smoke Exposure: No service: No Current occupational status: employed Cognitive needs: No Hearing needs: No Vision needs: Yes Review of Systems Const All systems reviewed & are unremarkable except as noted in HPI and below Physical Exam Vital Signs: Last Vital Signs Pulse 67 07/08/24 11:06 BP 132/88 07/08/24 11:06 Pulse Ox 98 07/08/24 11:06 Oxygen Delivery Method Room Air 07/08/24 11:06 BMI result Body Mass Index 28.9 Const General: cooperative, healthy appearing, comfortable, no acute distress and well developed Orientation/consciousness: patient oriented x3 Limitations: no limitations HEENT Head: Yes normal to inspection Ears: hearing grossly normal bilaterally General nose exam: Normal external nose present Face and sinus: Yes normal facial exam Eyes Eyelids: Yes eyelid abnormality (Left lateral lower eyelid, pinpoint stye with some erythema) Conjunctivae: conjunctivae normal Sclerae: sclerae normal Corneas: corneas normal Pupils: Equal, round and reactive pupils present EOM: EOMs intact bilaterally Skin Nails: discolored (Black spot on the lateral corner base of the left great toe) Neuro General: patient oriented x3 Cranial nerves: Yes Equal, round and reactive pupils present Assessment & Plan Assessment & Plan (1) Melanonychia: Code(s): L60.8 - Other nail disorders Plan: As patient does not recall any trauma to the area, we decided we would send a referral to Dermatology and that patient would watch the area. If she notices it is growing out, it is just a bruise and she should cancel her appointment. If it is not growing out or it becomes longitudinal, she should keep the referral appointment and follow up with Dermatology. Patient understands and agrees with plan (2) Stye: Code(s): H00.019 - Hordeolum externum unspecified eye, unspecified eyelid Qualifiers: Laterality: left Eyelid: lower Qualified Code(s): H00.015 - Hordeolum externum left lower eyelid Plan: Recommended using warm compresses as often as possible throughout the day. Plan See above Orders: Referrals Dermatology Referral L60.8 - Other nail disorders Coding Level of Care Code Est Pt Level 4 (64742) Diagnoses Melanonychia L60.8 Hordeolum externum of left lower eyelid H00.015 Laterality: left Eyelid: lower
== END 2024-07-08 11:24 | disposition home or self-care (01) ==
PROVIDERS: PCP Internal Medicine; Visit Provider Physician Assistant
DX: L60.8 Other nail disorders (principal); H00.015 Hordeolum externum left lower eyelid
CPT/HCPCS: 99214

== ENCOUNTER 2024-09-08 09:29 | Outpatient (AMB) | payer OTHER, SELFPAY ==
--- NOTE | 2024-09-08 09:31 | A.OFFPC_ITS ---
Vital Signs 09/08/24 09:32 Height 5 ft 6 in Weight 178 lb BMI 28.7 BP 106/64 Blood Pressure Location Rt brachial Position Sitting Pulse 70 Pulse Source Pulse Oximeter Pulse Oximetry (%) 98 Oxygen Delivery Method Room Air Intake Visit Reasons: ER follow up Intake Note: Pt is here today for ER follow up visit. Allergies No Known Allergies Allergy (Verified 09/08/24 09:34) Medication List - Last Reconciled 09/08/24 by Cynthia Reilly MD cholecalciferol (vitamin D3) 25 mcg PO DAILY ferrous sulfate (Feosol) 325 mg PO DAILY folic acid 1 mg PO DAILY infliximab-dyyb (Inflectra) IV lorazepam 0.5 mg PO DAILY PRN magnesium 250 mg PO DAILY methotrexate sodium 10 mg PO 3XW prednisone 5 mg PO DAILY turmeric root extract 500 mg PO DAILY zinc 50 mg PO DAILY Tobacco use date assessed: 09/08/24 Dental Screening Dental Screen Date: 04/07/24 HPI ER follow up HPI Details Patient presents for the follow-up of ER visit. She developed chest pain pressure and upper abdominal pain after eating beef stew cheese and potato chips. CT of the abdomen and ultrasound showed gallstones sludge and slightly dilated biliary duct but no acute cholecystitis. Patient denies any recurrent pain nausea vomiting. RA is stable on current medications. [facility] Medical History High serum vitamin B12 Knee pain, left Neck pain Joint pain, knee Annual physical exam Abnormal colonoscopy History of mammogram Anxiety Rheumatoid arthritis Surgical History No pertinent past surgical history Family History Father HTN (hypertension) Stroke Mother No problems noted. Social History Housing: House Alcohol intake: never Patient Tobacco Use Status: Never used Tobacco e-Cigarette/Vaping Use: Never Used Second Hand Smoke Exposure: No service: No Current occupational status: employed Cognitive needs: No Hearing needs: No Vision needs: Yes Questionnaire Thrive Questionnaire Date Thrive assessed: 04/07/24 JASWINDER-7 AMB Questionnaire JASWINDER-7 Date JASWINDER - 7 assessed: 04/07/24 Source: Developed by Drs. Brandon Payan, Goldie Pedersen, Zach Rodríguez and colleagues, with an educational caitlyn from [employer]. Review of Systems Const All systems reviewed & are unremarkable except as noted in HPI and below ENT Reports no additional complaints Card Reports no additional complaints Resp Reports no additional complaints GI Reports no additional complaints Reports no additional complaints Physical exam (Primary Care) Vital Signs: Last Vital Signs Pulse 70 09/08/24 09:32 BP 106/64 09/08/24 09:32 Pulse Ox 98 09/08/24 09:32 Oxygen Delivery Method Room Air 09/08/24 09:32 BMI result Body Mass Index 28.7 Tobacco/Smoking Status: Tobacco use Status Tobacco use date assessed 09/08/24 09/08/24 09:37 Patient Tobacco Use Status Never used Tobacco 09/08/24 09:37 e-Cigarette/Vaping Use Never Used 09/08/24 09:37 Thrive Assessment: Date of Thrive Assessment Date Thrive assessed 04/07/24 09/08/24 09:37 Const General: no acute distress HENMT Head: Yes normal to inspection Neck Neck: Yes supple Resp Effort & Inspection: normal respiratory effort Auscultation: clear to auscultation bilaterally Cardio Rhythm: regular rhythm Heart sounds: S1 normal heart sound present and S2 normal heart sound present GI Inspection: Yes normal to inspection Palpation (GI): Soft to palpation Percussion: Yes normal to percussion Auscultation: normal bowel sounds Coding Level of Care Code Est Pt Level 3 (76047) Diagnoses Cholelithiasis K80.20 Assessment & Plan Assessment & Plan (1) Cholelithiasis: Comment: CT and abd US, GALLBLADDER STONES AND SLUDGE NO ACUTE CHOLECYSTITIS 08/2024 Code(s): K80.20 - Calculus of gallbladder without cholecystitis without obstruction Category: Medical Plan: Supportive care discussed with the patient. She is not interested in surgical evaluation. For any recurrent symptoms patient was advised to see a surgeon.
[2024-09-08 09:32] VITALS: BP 106/64; PULSE 70; O2SAT 98; BMI 28.7
== END 2024-09-08 10:02 | disposition home or self-care (01) ==
LOC: HO.HMCC 09:29
PROVIDERS: PCP Internal Medicine; Visit Provider Internal Medicine
DX: K80.20 Calculus of gallbladder without cholecystitis without obstruction (principal)

== ENCOUNTER → 2024-09-08 09:29 | Outpatient (BNVA) | payer OTHER, SELFPAY | PROVIDERS: PCP Internal Medicine; Visit Provider Internal Medicine ==

== ENCOUNTER 2025-02-04 11:10 | Outpatient (AMB) | payer OTHER, SELFPAY ==
[2025-02-04 11:18] VITALS: BP 120/74; PULSE 55; RESP 20; TEMP 37.2; O2SAT 99; BMI 27.9
--- NOTE | 2025-02-04 11:18 | A.OFFPC_ITS ---
Vital Signs 02/04/25 11:18 Height 5 ft 6 in Weight 173 lb BMI 27.9 BP 120/74 Blood Pressure Location Rt brachial Position Sitting Respiration 20 Pulse 55 Pulse Source Pulse Oximeter Temp 99.0 F Temp Source Oral Pulse Oximetry (%) 99 Oxygen Delivery Method Room Air Intake Visit Reasons: Pain/ swelling/redness in lt forearm. Intake Note: Pt is here today for a sick visit. Pt c/o pain and swelling in L forearm and hand after infusion. Pt also states that she has a red spot on her R side of the face. Allergies No Known Allergies Allergy (Verified 02/04/25 11:18) Medication List - Last Reconciled 02/04/25 by Cynthia Reilly MD cephalexin 500 mg PO BID 7 days cholecalciferol (vitamin D3) 25 mcg PO DAILY ferrous sulfate (Feosol) 325 mg PO DAILY folic acid 1 mg PO DAILY infliximab-dyyb (Inflectra) IV lorazepam 0.5 mg PO DAILY PRN magnesium 250 mg PO DAILY methotrexate sodium 10 mg PO 3XW prednisone 5 mg PO DAILY prednisone mg PO turmeric root extract 500 mg PO DAILY zinc 50 mg PO DAILY Tobacco use date assessed: 02/04/25 Dental Screening Dental Screen Date: 02/04/25 Did you have a dental visit in the last 12 months?: Yes Did you have a dental problem in the last 6 months where you did not have access to dental care?: No Was dental information given to patient?: Patient has dentist HPI Pain/ swelling/redness in lt forearm. HPI Details Pt c/o L forearm swelling, pain started after Inflectra infusion a week ago. The swelling on the dorsal aspect of left forearm started 2nd day after infusion and resolved within 5 days. Two days ago patient developed erythema swelling and tenderness on the palmar aspect of left forearm. She denies fever or chills. [facility] Medical History High serum vitamin B12 Knee pain, left Neck pain Joint pain, knee Annual physical exam Abnormal colonoscopy History of mammogram Anxiety Rheumatoid arthritis Surgical History No pertinent past surgical history Family History Father HTN (hypertension) Stroke Mother No problems noted. Social History Housing: House Alcohol intake: never Patient Tobacco Use Status: Never used Tobacco e-Cigarette/Vaping Use: Never Used Second Hand Smoke Exposure: No service: No Current occupational status: employed Cognitive needs: No Hearing needs: No Vision needs: Yes Questionnaire Thrive Questionnaire Date Thrive assessed: 04/07/24 AUDIT C Alcohol Use Questionnaire (AUDIT-C) 1. How often do you have a drink containing alcohol?: Monthly or less 2. How many drinks containing alcohol do you have on a typical day when you are drinking?: 1 or 2 3. How often do you have six or more drinks on one occasion?: Never Total Score: 1 JASWINDER-7 AMB Questionnaire JASWINDER-7 Date JASWINDER - 7 assessed: 04/07/24 Source: Developed by Drs. Brandon Payan, Goldie Pedersen, Zach Rodríguez and colleagues, with an educational caitlyn from [employer]. Review of Systems Const All systems reviewed & are unremarkable except as noted in HPI and below Eyes Reports no additional complaints Card Reports no additional complaints Resp Reports no additional complaints GI Reports no additional complaints Reports no additional complaints Physical exam (Primary Care) Vital Signs: Last Vital Signs Temp 99.0 F 02/04/25 11:18 Pulse 55 02/04/25 11:18 Resp 20 02/04/25 11:18 BP 120/74 02/04/25 11:18 Pulse Ox 99 02/04/25 11:18 Oxygen Delivery Method Room Air 02/04/25 11:18 BMI result Body Mass Index 27.9 Tobacco/Smoking Status: Tobacco use Status Tobacco use date assessed 02/04/25 02/04/25 11:21 Patient Tobacco Use Status Never used Tobacco 02/04/25 11:21 e-Cigarette/Vaping Use Never Used 02/04/25 11:21 Thrive Assessment: Date of Thrive Assessment Date Thrive assessed 04/07/24 02/04/25 11:21 Const General: no acute distress HENMT Head: Yes normal to inspection Eyes General: appearance normal, both eyes and all related structures Resp Effort & Inspection: normal respiratory effort Auscultation: clear to auscultation bilaterally Cardio Rhythm: regular rhythm Heart sounds: S1 normal heart sound present and S2 normal heart sound present Extrem Other: There is 10 cm x 6 cm area of erythema tenderness and swelling on the palmar aspect of left forearm Coding Level of Care Code Est Pt Level 3 (84714) Diagnoses Cellulitis L03.90 Assessment & Plan Assessment & Plan (1) Cellulitis: Code(s): L03.90 - Cellulitis, unspecified Category: Medical Plan: Keflex 500 mg b.i.d. is prescribed for cellulitis. Patient was advised to take ibuprofen 600 mg 3 times a day for pain and swelling and was advised to follow- up with video game programmer Medications: New cephalexin 500 mg PO BID 7 days 14 caps 0RF
--- OUTSIDE RECORDS SUMMARY | 2025-02-04 14:44 | XMS_ITS | Clinical Summary ---
Author Organization [employer] Address [address] [place] [id number] Care Team Providers Care Employment Specialist Name Role Phone Cynthia Reilly MD Primary Care Provider [phone] Allergies No known active allergies Medications meloxicam (MOBIC) 15 mg tablet Take 15 mg by mouth 1 (one) time each day. Active etanercept (ENBREL) 50 mg/mL (1 mL) injection Inject 50 mg under the skin every 7 (seven) days. Active acetaminophen (TYLENOL 8 HOUR) 650 mg 8 hr tablet Take 650 mg by mouth every 8 (eight) hours if needed. Do not crush, chew, or split. Active predniSONE (DELTASONE) 5 mg tablet Take 5 mg by mouth 1 (one) time each day. Active Active Problems Problem Noted Date Diagnosed Date Right wrist pain 09/28/2021 Resolved Problems Problem Noted Date Diagnosed Date Resolved Date Hip pain, acute, left 08/01/20212020 Acute neck pain 06/28/2021 09/28/2021 Family History Medical History Relation Comments Hypertension Father Stroke Father Relation Status Comments Father Alive Mother Alive Social History Tobacco Use Types Packs/Day Years Used Date Smoking Tobacco: Never Smokeless Tobacco: Never Alcohol Use Standard Drinks/Week Comments Yes 0 (1 standard drink = 0.6 oz pur e alcohol) social contact worker Comments Unknown Sex and Gender Information Value Date Recorded Sex Assigned at Not on file Legal Sex Female 5:42 AM MST Gender Identity Not on file Sexual Orientation Not on file Plan of Treatment Health Maintenance Due Date Last Done Comments CT Colonography 1972 Cologuard 1972 FOBT/FIT 1972 Hepatitis C Screening 1972 Sigmoidoscopy 1972 PHQ-9 Depression Screen 1984 Complete Annual HRA 1990 JASWINDER-7 Anxiety Screen 1990 DTaP,Tdap,and Td Vaccines (1 - Tdap) 1991 Cervical Cancer Screening (Pap/HPV) 1993 Annual Preventive Exam 08/29/2021 0, 08/24/2019, 11/25/2018, Additional history exists Mammogram 10/30/2021 10/30/2019, 08/11, 08/23/2018 Pneumococcal Vaccine: 50+ Ye ars (1 of 1 - PCV) 2022 Zoster Vaccines (1 of 2) 2022 COVID-19 Vaccine (1 - 2023-2 5 season) 2024 Influenza Vaccine (#1) 2024 Colonoscopy 12/14/2029 12/14/2019 Colorectal Cancer Screening 12/14/2029 RSV Vaccine (SCDM) (1 - 1-do se 75+ series) 2047 Insurance [employer] Care Teams Employment Specialist Relationship Specialty Start Date End Date Cynthia Reilly MD [address] [place] [address] PCP - General Family Medicine 06/28/21
--- OUTSIDE RECORDS SUMMARY | 2025-02-04 14:44 | XMS_ITS | Encounter Summary ---
Author Organization [facility] Address [address] [place] [id number] Care Team Providers Care Operational Intelligence Officer Name Role Phone Unavailable Primary Care Provider Unavailabl e Encounter Details Date Type Department Care Team (Late st Contact Info) Description 04/10/2023 Scanned Document [facility] Department Of Hematology/Oncology [address] [place] [phone] Sheldon Stephenson MD [address] [place] [phone] Social History Tobacco Use Types Packs/Day Years Used Date Smoking Tobacco: Never Assessed Sex and Gender Information Value Date Recorded Sex Assigned at Female 01/28/2023 12:24 PM EDT Gender Identity Female 01/28/2023 12:24 PM EDT Sexual Orientation Choose not to disclose 2022 12:24 PM EDT documented as of this encounter Plan of Treatment Upcoming Encounters Date Type Department Care Team (Late st Contact Info) Description 03/09/2025 11:30 AM EDT Infusion [facility] Department Of Infusion Medicine [address] [place] [phone] documented as of this encounter Visit Diagnoses Not on filedocumented in this encounter
--- OUTSIDE RECORDS SUMMARY | 2025-02-04 14:44 | XMS_ITS ---
Author Name [facility] Organization Unknown History of Medication Use Medication Directions Dispensed Refills Start Date End Date Stat acetaminophen (TYLENOL) tablet 975 mg 975 mg (rounded from 1,000 mg), Oral, Once, On Sarah 10/17/23 at 1300, For 1 dose, Administer 30 minutes prior to inFLIXimab-DYYB infusion. 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 EncounterDiagnosisAct [facility] Encounters Encounter Type Encounter Reason Primary Diagnosis Location Date Ambulatory Rheumatoid arthritis with rheumatoid factor of multiple sites without organ or systems involvement Rheumatoid arthritis with rheumatoid factor of multiple sites without organ or systems involvement [facility] 01/26/2025 Ambulatory [facility] 12/15/2024 Ambulatory Rheumatoid arthritis with rheumatoid factor of multiple sites without organ or systems involvement Rheumatoid arthritis with rheumatoid factor of multiple sites without organ or systems involvement [facility] 10/29/2024 Ambulatory Rheumatoid arthritis with rheumatoid factor of multiple sites without organ or systems involvement Rheumatoid arthritis with rheumatoid factor of multiple sites without organ or systems involvement [facility] 09/15/2024 Ambulatory [facility] 08/04/2024 Ambulatory Rheumatoid arthritis with rheumatoid factor of multiple sites without organ or systems involvement Rheumatoid arthritis with rheumatoid factor of multiple sites without organ or systems involvement [facility] 06/23/2024 Ambulatory Rheumatoid arthritis with rheumatoid factor of multiple sites without organ or systems involvement Rheumatoid arthritis with rheumatoid factor of multiple sites without organ or systems involvement [facility] 05/12/2024 Ambulatory Rheumatoid arthritis with rheumatoid factor of multiple sites without organ or systems involvement Rheumatoid arthritis with rheumatoid factor of multiple sites without organ or systems involvement [facility] 03/31/2024 Ambulatory [facility] 01/29/2024 Ambulatory Rheumatoid arthritis with rheumatoid factor of multiple sites without organ or systems involvement Rheumatoid arthritis with rheumatoid factor of multiple sites without organ or systems involvement [facility] 12/17/2023 Ambulatory Rheumatoid arthritis with rheumatoid factor of multiple sites without organ or systems involvement Rheumatoid arthritis with rheumatoid factor of multiple sites without organ or systems involvement [facility] 10/17/2023 Ambulatory Rheumatoid arthritis with rheumatoid factor of multiple sites without organ or systems involvement Rheumatoid arthritis with rheumatoid factor of multiple sites without organ or systems involvement [facility] 08/07/2023 Ambulatory Rheumatoid arthr itis with rheumatoid factor of multiple sites without organ or systems involvement [facility] 06/11/2023 Ambulatory Rheumatoid arthr itis with rheumatoid factor of multiple sites without organ or systems involvement [facility] 04/10/2023 Ambulatory [facility] 02/13/2023 Care Team Organization Name Specialty Phone Email Start Date End Da te [facility] 02/13/2023 02/13/2023 [facility] 02/13/2023
--- OUTSIDE RECORDS SUMMARY | 2025-02-04 14:44 | XMS_ITS | Encounter Summary ---
Author Organization [facility] Address [address] [place] [address] Care Team Providers Care Package Checker Name Role Phone Unavailable Primary Care Provider Unavailabl e Encounter Details Date Type Department Care Team (Late st Contact Info) Description 05/12/2024 Scanned Document [facility] [place] [address] [place] [phone] Bridget Mora APRN [address] [place] [address] Social History Tobacco Use Types Packs/Day Years Used Date Smoking Tobacco: Never Sex and Gender Information Value Date Recorded Sex Assigned at Female 01/28/2023 12:24 PM EDT Gender Identity Female 01/28/2023 12:24 PM EDT Sexual Orientation Choose not to disclose 2022 12:24 PM EDT documented as of this encounter Plan of Treatment Upcoming Encounters Date Type Department Care Team (Late st Contact Info) Description 03/09/2025 11:30 AM EDT Infusion [facility] [place] [address] [place] [phone] documented as of this encounter Visit Diagnoses Not on filedocumented in this encounter
--- OUTSIDE RECORDS SUMMARY | 2025-02-04 14:44 | XMS_ITS | Encounter Summary ---
Author Organization [facility] Address [address] [place] [address] Care Team Providers Care Ocular Pathologist Name Role Phone Unavailable Primary Care Provider Unavailabl e Encounter Details Date Type Department Care Team (Late st Contact Info) Description 01/22/2024 Scanned Document [facility] [place] [address] [place] [phone] Social History Tobacco Use Types Packs/Day Years [...] Infusion [facility] [place] [address] [place] [phone] documented as of this encounter Visit Diagnoses Not on filedocumented in this encounter
--- OUTSIDE RECORDS SUMMARY | 2025-02-04 14:44 | XMS_ITS | Encounter Summary ---
Author Organization [facility] Address [address] [place] [address] Care Team Providers Care Pharmacy Operations Manager Name Role Phone Unavailable Primary Care Provider Unavailabl e Reason for Visit * Reason Comments IV Medication Patient is here toda y for every 8 week inflectra infusion. Patient is feeling well she was away for the weekend and had to do lots of walking so her ankles are sore but otherwise she is feeling well. Tolerated infusion without issue. 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) Social History Tobacco Use Types Packs/Day Years Used Date Smoking Tobacco: Never Sex and Gender Information Value Date Recorded Sex Assigned at Female 01/28/2023 12:24 PM EDT Gender Identity Female 01/28/2023 12:24 PM EDT Sexual Orientation Choose not to disclose 2022 12:24 PM EDT documented as of this encounter Last Filed Vital Signs Vital Sign Reading Time Taken Comments Blood Pressure 98/64 01/26/2025 11:50 AM EDT Pulse 60 01/26/2025 11:50 AM EDT Temperature 36.3 ??C (97.3 ??F) 01/26/2025 11:50 AM E DT Respiratory Rate - - Oxygen Saturation 98% 01/26/2025 11:50 AM EDT Inhaled Oxygen Concentration - - Weight 80.3 kg (177 lb) 01/26/2025 11:50 AM EDT Height - - Body Mass Index - - documented in this encounter Progress Notes * Serena Chen RN - 01/26/2025 3:31 PM EDT Images from the original note were not included. [address] [place] [address] Date: 01/26/2025 Patient Name: Zulma Carias Date of : 1970 Reason for Visit Patient is here today for every 8 week inflectra infusion. Patient is feeling well she was away forthe weekend and had to do lots of walking so her ankles are sore but otherwise she is feeling well.Tolerated infusion without issue. Injection Start Order Primary Chemo RN: Serena Chen RN Active LDAs: Peripheral IV - Single Lumen (Adult) 01/26/25 1200 metacarpal vein (top of hand), left 24 gauge;3/4in length (Active) Number of days: 0 - Administrations This Visit (last 24 hrs) SERENA CEHN RN Medication Name Action Time Action Dose Comments diphenhydrAMINE (BENADRYL) capsule 50 mg 01/26/25 1200 Given 50 mg inFLIXimab-dyyb (INFLECTRA) 240 mg in sodium chloride (NS) 0.9 % 250 mL IVPB 01/26/25 1205 New Bag 240 mg inFLIXimab-dyyb (INFLECTRA) 240 mg in sodium chloride (NS) 0.9 % 250 mL IVPB 01/26/25 1405 Stopped Followed by 50cc of NS Allergies Allergies Allergen Reactions Bactrim [Sulfamethoxazole-Trimethoprim] Unknown/Patient and Family Unable to Define Salsalate Unknown/Patient and Family Unable to Define Vitals Vitals: 01/26/25 1150 BP: 98/64 Pulse: 60 Temp: 97.3 ??F (36.3 ??C) SpO2: 98% Infusion Access Peripheral Site: [] Jelco, Gauge [] Intima, Gauge [] Butterfly, Gauge [] Nexiva, Gauge [x] Insyte, Gauge 24g Port Site: PICC Line: Patent: Yes Blood Return: Yes Site: [x] Site is clean, dry and intact Area: [x] No redness, swelling, or tenderness Other: [] Other: # of 10cc's prefilled normal saline syringes used: 1 # of 500 unites of Heparin used to flush port: IV Infiltrate [] ice applied [] heat applied [] extremity elevated Cathflo 2 mg Start: Stop: Plan / Lab Results Consent & Conclusion [] Consent for current chemotherapy / biotherapy verified. [x] Patient discharged in stable condition. [x] Tolerated treatment well without incident. [x] Patient advised to call with questions, concerns or side effects. Patient to return: in 8 weeks Serena Chen RN Electronically signed by CHAIR 1, STR HEM ONC ENF 01/26/2025 documented in this encounter Plan of Treatment Upcoming Encounters Date Type Department Care Team (Late st Contact Info) Description 03/09/2025 11:30 AM EDT Infusion [facility] Department Of Infusion Medicine [place] [address] [place] [phone] documented as of this encounter Visit Diagnoses Diagnosis Rheumatoid arthritis involving multiple sites with positive rheumatoid factor (HCC)- Primary documented in this encounter Administered Medications Inactive Administered Medications - up to 1 most recent administrations Medication Order MAR Action Action Date Dose Rate Site diphenhydrAMINE (BENADRYL) capsule 50 mg 50 mg, Oral, Once, On Sat01/26/25 at 1200, For 1 dose, Administer 30 minutes prior to inFLIXimab-DYYB infusion. Given 01/26/2025 12:00 PM EDT 50 mg inFLIXimab-dyyb (INFLECTRA) 240 mg in sodium chloride (NS) 0.9 % 250 mL IVPB 240 mg (rounded from 240.9 mg = 3 mg/kg ? 80.3 kg), Intravenous, Administer over 2 Hours, Once, On Sat01/26/25 at 1200, For 1 dose, Maintenance Dose: Administer every 8 weeks. Flush and prime tubing with NS before administration. Flush IV line with 15-20 mL NS after infusion. Administer through a 0.2 micron low protein binding-filter. Do not shake New Bag 01/26/2025 12:05 PM EDT 240 mg 125 mL/hr documented in this encounter
--- OUTSIDE RECORDS SUMMARY | 2025-02-04 14:44 | XMS_ITS | Clinical Summary ---
Author Organization [facility] Address [address] [place] [address] Care Team Providers Care Decontaminator Name Role Phone Unavailable Primary Care Provider Unavailabl e Allergies Active Allergy Reactions Criticality Noted Date Comments Sulfamethoxazole-Trimethopr im Unknown/Patient and Family Unable to Define Medium 02/12/2023 Salsalate Unknown/Patient and Family Unable to Define Medium 02/12/2023 Medications No known medications Active Problems Problem Noted Date Diagnosed Date Rheumatoid arthritis 02/12/2023 Encounters Date Type Department Care Team Description 01/26/2025 11:30 AM EDT Infusion [facility] Department Of Infusion Medicine [place] [address] [place] [phone] Rheumatoid arthritis involving multiple sites with positive rheumatoid factor (HCC) (Primary Dx) 12/15/2024 11:30 AM EST Infusion [facility] Of [facility]fusion Medicine [place] [address] [place] [phone] Rheumatoid arthritis involving multiple sites with positive rheumatoid factor (HCC) (Primary Dx) 12/09/2024 Telephone [facility] Department of Infusion Medicine [place] [address] [facility] [address] [place] [address] Bridget Mora APRN Appointment 12/08/2024 Telephone [facility] Department Of Hematology/Oncology [place] [address] [place] [phone] Bridget Mora APRN from Last 3 Months Social History Tobacco Use Types Packs/Day Years Used Date Smoking Tobacco: Never Tobacco Cessation:Counseling Given: Not Answered Sex and Gender Information Value Date Recorded Sex Assigned at Female 01/28/2023 12:24 PM EDT Gender Identity Female 01/28/2023 12:24 PM EDT Sexual Orientation Choose not to disclose 2022 12:24 PM EDT Last Filed Vital Signs Vital Sign Reading [...] - - Body Mass Index - - Plan of Treatment Upcoming Encounters Date Type Department Care Team (Late st Contact Info) Description 03/09/2025 11:30 AM EDT Infusion [facility] Of [facility]fusion Medicine [place] [address] [place] [phone] Health Maintenance Due Date Last Done Comments Hepatitis C Virus Screening 1972 COVID-19 Vaccine (#1) 1977 HIV Screening 1985 DTaP/Tdap/Td Vaccines (1 - Tdap) 1991 Hepatitis B Vaccines (1 of 3 - 19+ 3-dose series) 05/12 Pap Smear (Ages 21-65) 1993 Mammogram 2012 Colonoscopy 2017 Pneumococcal Vaccines 50+ (1 of 1 - PCV) 2022 Zoster (Shingles) Vaccine (1 of 2) 2022 Influenza Vaccine 06/11/2024
--- OUTSIDE RECORDS SUMMARY | 2025-02-04 14:44 | XMS_ITS | Encounter Summary ---
Author Organization [facility] Address [address] [place] [address] Care Team Providers Care Epoxy Coatings Installer Name Role Phone Unavailable Primary Care Provider Unavailabl e Encounter Details Date Type Department Care Team (Late st Contact Info) Description 03/31/2024 Scanned Document [facility] Of [facility]fusion Medicine [place] [address] [place] [phone] Bridget Mora APRN [address] [place] [address] Social History Tobacco Use Types Packs/Day Years [...] Infusion [facility] Of [facility]fusion Medicine [place] [address] [place] [phone] documented as of this encounter Visit Diagnoses Not on filedocumented in this encounter
--- OUTSIDE RECORDS SUMMARY | 2025-02-04 14:44 | XMS_ITS | Encounter Summary ---
Author Organization [facility] Address [address] [place] [address] Care Team Providers Care Jet Mechanic Name Role Phone Unavailable Primary Care Provider Unavailabl e Encounter Details Date Type Department Care Team (Late st Contact Info) Description 04/10/2023 Scanned Document [facility] Of Infusion Medicine [place] [address] [place] [phone] Sheldon Stephenson MD [address] [place] [phone] Social History Tobacco Use Types Packs/Day [...] Info) Description 03/09/2025 11:30 AM EDT Infusion [facility] Department Of [facility]fusion Medicine [place] [address] [place] [phone] documented as of this encounter Visit Diagnoses Not on filedocumented in this encounter
== END 2025-02-04 12:04 | disposition home or self-care (01) ==
LOC: HO.HMCC 11:10
PROVIDERS: PCP Internal Medicine; Visit Provider Internal Medicine
DX: L03.90 Cellulitis, unspecified (principal)

== ENCOUNTER 2025-03-02 13:11 | Outpatient (AMB) | payer OTHER, SELFPAY ==
--- NOTE | 2025-03-02 13:56 | A.OFFPC_ITS ---
Vital Signs 03/02/25 13:58 Height 5 ft 6 in Weight 172 lb BMI 27.8 BP 110/70 Blood Pressure Location Lt brachial Position Sitting Respiration 18 Pulse 67 Pulse Source Pulse Oximeter Temp 99.3 F Temp Source Oral Pulse Oximetry (%) 99 Oxygen Delivery Method Room Air Intake Visit Reasons: Hospital follow up Intake Note: Pt is here today for Hospital follow up visit. Allergies No Known Allergies Allergy (Verified 02/04/25 11:18) Tobacco use date assessed: 02/04/25 Dental Screening Dental Screen Date: 02/04/25 HPI Hospital follow up HPI Details Pt presents for f/u of hospitalization at [facility] for acute cholecystitis s/p cholecystectomy on 02/25 and recovered well. Pt has been tolerating low-fat diet. She has a follow-up appointment with surgeon in 2 weeks [facility] Medical History (Updated 03/02/25 @ 14:21 by Cynthia Reilly MD) High serum vitamin B12 Knee pain, left Neck pain Joint pain, knee Annual physical exam Abnormal colonoscopy History of mammogram Anxiety Rheumatoid arthritis Surgical History (Updated 03/02/25 @ 14:20 by Cynthia Reilly MD) Hx laparoscopic cholecystectomy Family History Father HTN (hypertension) Stroke Mother No problems noted. Social History Housing: House Alcohol intake: never Patient Tobacco Use Status: Never used Tobacco e-Cigarette/Vaping Use: Never Used Second Hand Smoke Exposure: No service: No Current occupational status: employed Cognitive needs: No Hearing needs: No Vision needs: Yes Questionnaire Thrive Questionnaire Date Thrive assessed: 04/07/24 JASWINDER-7 AMB Questionnaire JASWINDER-7 Date JASWINDER - 7 assessed: 04/07/24 Source: Developed by Drs. Brandon Payan, Goldie Pedersen, Zach Rodríguez and colleagues, with an educational caitlyn from [employer]. Review of Systems Const All systems reviewed & are unremarkable except as noted in HPI and below ENT Reports no additional complaints Card Reports no additional complaints Resp Reports no additional complaints GI Reports no additional complaints Reports no additional complaints Physical exam (Primary Care) Vital Signs: Last Vital Signs Temp 99.3 F 03/02/25 13:58 Pulse 67 03/02/25 13:58 Resp 18 03/02/25 13:58 BP 110/70 03/02/25 13:58 Pulse Ox 99 03/02/25 13:58 Oxygen Delivery Method Room Air 03/02/25 13:58 BMI result Body Mass Index 27.8 Tobacco/Smoking Status: Tobacco use Status Tobacco use date assessed 02/04/25 03/02/25 13:59 Patient Tobacco Use Status Never used Tobacco 03/02/25 13:59 e-Cigarette/Vaping Use Never Used 03/02/25 13:59 Thrive Assessment: Date of Thrive Assessment Date Thrive assessed 04/07/24 03/02/25 13:59 Const General: no acute distress HENMT Mouth: Normal oral and palatal mucosa present Eyes General: appearance normal, both eyes and all related structures Resp Effort & Inspection: normal respiratory effort Auscultation: clear to auscultation bilaterally Cardio Rhythm: regular rhythm Heart sounds: S1 normal heart sound present and S2 normal heart sound present GI Inspection: Yes normal to inspection Palpation (GI): Soft to palpation Percussion: Yes normal to percussion Auscultation: normal bowel sounds Coding Level of Care Code Est Pt Level 3 (44571) Diagnoses Cholelithiasis K80.20 Assessment & Plan Assessment & Plan (1) Cholelithiasis: Comment: CT and abd US, GALLBLADDER STONES AND SLUDGE NO ACUTE CHOLECYSTITIS 08/2024, status post cholecystectomy 02/2025 Code(s): K80.20 - Calculus of gallbladder without cholecystitis without obstruction Category: Medical Plan: Patient will continue low-fat diet and supportive care discussed with the patient she will follow-up with the surgeon
[2025-03-02 13:58] VITALS: BP 110/70; PULSE 67; RESP 18; TEMP 37.4; O2SAT 99; BMI 27.8
--- OUTSIDE RECORDS SUMMARY | 2025-03-02 15:37 | XMS_ITS | Encounter Summary ---
Author Organization [facility] Address [address] [place] [address] Care Team Providers Care Water Chemist Name Role Phone Unavailable Primary Care Provider Unavailabl e Encounter Details Date Type Department Care Team (Late st Contact Info) Description 01/22/2024 Scanned Document [facility] Department Of Infusion Medicine [place] [address] [place] [phone] Social History Tobacco Use Types Packs/Day Years Used Date Smoking Tobacco: Never Comments Unknown Sex and Gender Information Value Date Recorded Sex Assigned at Female 01/28/2023 12:24 PM EDT Legal Sex Female 12:55 PM EST Gender Identity Female 01/28/2023 12:24 PM EDT Sexual Orientation Choose not to disclose 2022 12:24 PM EDT documented as of this encounter Plan of Treatment Upcoming Encounters Date Type Department Care Team (Late st Contact Info) Description 03/09/2025 11:30 AM EDT Infusion [facility] Department Of Infusion Medicine [place] [address] [place] [phone] documented as of this encounter Visit Diagnoses Not on filedocumented in this encounter
--- OUTSIDE RECORDS SUMMARY | 2025-03-02 15:37 | XMS_ITS | Encounter Summary ---
Author Organization [facility] Address [address] [place] [address] Care Team Providers Care Care Asst Name Role Phone Unavailable Primary Care Provider Unavailabl e Encounter Details Date Type Department Care Team (Late st Contact Info) Description 04/10/2023 Scanned Document [facility] Department Of Hematology/Oncology [place] [address] [place] [phone] Sheldon Stephenson MD [address] [place] [phone] Social History Tobacco Use Types Packs/Day Years Used Date Smoking Tobacco: Never Assessed Comments Unknown Sex and Gender Information Value [...] Infusion [facility] Of Infusion Medicine [place] [address] [place] [phone] documented as of this encounter Visit Diagnoses Not on filedocumented in this encounter
--- OUTSIDE RECORDS SUMMARY | 2025-03-02 15:37 | XMS_ITS | Encounter Summary ---
Author Organization [facility] Address [address] [place] [address] Care Team Providers Care Technology Consultant Name Role Phone Unavailable Primary Care Provider Unavailabl e Encounter Details Date Type Department Care Team (Late st Contact Info) Description 04/10/2023 Scanned Document [facility] Department Of Infusion Medicine [place] [address] [place] [phone] Sheldon Stephenson MD [address] [place] [phone] Social History Tobacco Use Types Packs/Day [...] Info) Description 03/09/2025 11:30 AM EDT Infusion [facility] Department Of Infusion Medicine [place] [address] [place] [phone] documented as of this encounter Visit Diagnoses Not on filedocumented in this encounter
--- OUTSIDE RECORDS SUMMARY | 2025-03-02 15:37 | XMS_ITS | Clinical Summary ---
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 Dx) 12/15/2024 11:30 AM EST Infusion [facility] Department Of Infusion Medicine [place] [address] [place] [phone] Rheumatoid arthritis involving multiple sites with positive rheumatoid factor (HCC) (Primary Dx) 12/09/2024 Telephone [facility] [place] [address] [facility] [address] [place] [address] Bridget Mora APRN Appointment 12/08/2024 Telephone [facility] Department Of Hematology/Oncology [place] [address] [place] [phone] Bridget Mora APRN from Last 3 Months Social History Tobacco Use Types Packs/Day Years Used Date Smoking Tobacco: Never Tobacco Cessation:Counseling Given: Not Answered Comments Unknown Sex and Gender Information Value [...] Infusion [facility] Department Of Infusion Medicine [place] [address] [place] [address] Health Maintenance Due Date Last Done Comments [...] (1 of 2) 2022 Influenza Vaccine 06/11/2024 Insurance [facility] HMO
--- OUTSIDE RECORDS SUMMARY | 2025-03-02 15:37 | XMS_ITS | Encounter Summary ---
Author Organization [facility] Address [address] [place] [id number] Care Team Providers Care Glass Maker Name Role Phone Unavailable Primary Care Provider Unavailabl e Encounter Details Date Type Department Care Team (Late st Contact Info) Description 05/12/2024 Scanned Document [facility] Department Of Infusion Medicine [place] [address] [place] [address] [phone] Bridget Mora APRN [address] [place] [address] Social History Tobacco Use Types Packs/Day Years [...] Info) Description 03/09/2025 11:30 AM EDT [facility] [place] [address] [place] [address] [phone] documented as of this encounter Visit Diagnoses Not on filedocumented in this encounter
--- OUTSIDE RECORDS SUMMARY | 2025-03-02 15:37 | XMS_ITS | Encounter Summary ---
Author Organization [facility] Address [address] [place] [id number] Care Team Providers Care Sock And Stocking Ironer Name Role Phone Unavailable Primary Care Provider Unavailabl e Encounter Details Date Type Department Care Team (Late st Contact Info) Description 03/31/2024 Scanned Document [facility] Department Of Infusion Medicine [place] [address] [place] [address] [phone] Bridget Mora APRN [address] [place] [address] Social History Tobacco Use Types Packs/Day Years [...] Info) Description 03/09/2025 11:30 AM EDT [facility] [place] [address] [place] [address] [phone] documented as of this encounter Visit Diagnoses Not on filedocumented in this encounter
--- OUTSIDE RECORDS SUMMARY | 2025-03-02 15:38 | XMS_ITS | Continuity of Care Document ---
Author Organization [facility] ter Address [address] [place] [id number]- Care Team Providers Care Freezer Laboratory Technician Name Role Phone Cynthia Reilly MD Primary Care Phys[id number] Date(s): 02/24/25 - 02/26/[address] [id number] Encounter Diagnosis Gall stones(Final) - 02/24/25 Discharge Disposition: A-D/C Home Attending Physician: Teodoro Zepeda MD Admitting Physician: Teodoro Zepeda MD Referring Physician: Not on Staff, Referring MD Encounter Type: Disch Obv Allergies, Adverse Reactions, Alerts No Known Allergies Medications acetaminophen 325 mg oral tablet 650 mg, 2, tablet, By Mouth, Every 6 hours, for 14 days, # 112 tablet, Refills 0, Tot. Refills 0, Acute 03/12/25 10:37:00 AM EDT, 02/26/25 10:37:00 AM EDT, Route to Pharmacy Electronically, [facility], Partial fill upon patient request if the prescription is for a schedule II opioid drug., 168, cm, 02/25/25 17:41:00 EDT, Height, 80, kg, 02/25/25 12:04:00 EDT, Dry Weight Start Date: 02/26/25 Stop Date: 03/12/25 Status: Ordered Quantity: 112.0 Unit: tablet Repeat number: 1 Colace sodium 100 mg oral capsule 100 mg, 1, capsule, By Mouth, 2 times a day, PRN, # 100 capsule, Refills 0, Tot. Refills 0, Maintenance, for constipation, 02/26/25 10:37:00 AM EDT, Route to Pharmacy Electronically, [facility], Partial fill upon patient request if the prescription is for a schedule II opioid drug., 168, cm, 02/25/25 17:41:00 EDT, Height, 80, kg, 02/25/25 12:04:00 EDT, Dry Weight Start Date: 02/26/25 Stop Date: 03/12/25 Status: Ordered Quantity: 100.0 Unit: capsule Repeat number: 1 Dilaudid Inj 0.2 mg, Injection, IV Push Slowly, Every 4 hours, PRN for Pain , Severe, Routine, 02/24/25 11:07:00 PM EDT Start Date: 02/24/25 Stop Date: 02/27/25 Status: Discontinued Repeat number: 1 folic acid 1 mg oral tablet 1 mg, 1, tablet, By Mouth, Daily, Refills 0, Maintenance, 02/25/25 12:13:00 AM EDT, Partial fill upon patient request if the prescription is for a schedule II opioid drug. Start Date: 02/25/25 Status: Ordered Repeat number: 1 Inflectra = 5 mg/kg, IV Infusion, Every 6 weeks, 0 Refills, Maintenance, 02/25/25 12:13:00 AM EDT, Partial fill upon patient request if the prescription is for a schedule II opioid drug. Start Date: 02/25/25 Status: Ordered Repeat number: 1 Meloxicam By Mouth, Daily, 0 Refills, Maintenance, 04/20/18 11:04:37 PM EDT Start Date: 04/20/18 Status: Ordered Repeat number: 1 methotrexate 10 mg oral tablet 1 tablet = 10 mg, By Mouth, Every , 0 Refills, Maintenance, 02/25/25 12:11:00 AM EDT, Partial fill upon patient request if the prescription is for a schedule II opioid drug. Start Date: 02/25/25 Status: Ordered Repeat number: 1 MiraLax oral powder for reconstitution = 17 Gm, By Mouth, Daily, PRN Constipation, for 10 days, # 255 Gm, 0 Refills, Acute 03/08/25 10:38:00 AM EDT, 02/26/25 10:38:00 AM EDT, REC Powder, [facility], Partial fill upon patient request if the prescription is for a schedule II opioid drug., 17 Gm By Mouth Daily,x10 days,PRN:Constipation, 168, cm, 02/25/25 17:41:00 EDT, Height, 80, kg, 02/25/25 12:04:00 EDT, Dry Weight Start Date: 02/26/25 Stop Date: 03/08/25 Status: Ordered Quantity: 255.0 Unit: g Repeat number: 1 oxyCODONE 5 mg oral tablet 5 mg, By Mouth, Every 4 hours, PRN, for 5 days, # 15 tablet, Refills 0, Tot. Refills 0, Acute 03/03/25 10:37:00 AM EDT, Pain , Severe, 02/26/25 10:37:00 AM EDT, Route to Pharmacy Electronically, [facility], Partial fill upon patient request if the prescription is for a schedule II opioid drug., 168, cm, 02/25/25 17:41:00 EDT, Height, 80, kg, 02/25/25 12:04:00 EDT, Dry Weight Start Date: 02/26/25 Stop Date: 03/03/25 Status: Ordered Quantity: 15.0 Unit: tablet Repeat number: 1 oxyCODONE 5 mg oral tablet 5 mg, Tablet, By Mouth, Every 4 hours, PRN for Pain , Severe, Routine, 02/25/25 2:56:00 PM EDT Start Date: 02/25/25 Stop Date: 02/27/25 Status: Discontinued Repeat number: 1 Results Radiology Reports * Exam Date Time Procedure Performing Provider Status 02/25/25 2:01 PM C-Arm < 1 Hour Arpan Ramos; Kenny (Verified) Notes: (C-Arm < 1 Hour) Reason For Exam: Lap tanya RESULT: C-Arm < 1 Hour Cholangiogram Intraoperative, C-Arm < 1 Hour INDICATION: Reason: Lap tanya COMPARISONS: None TECHNIQUE: Fluoroscopy support was provided. There was no radiologist in attendance. FLUOROSCOPY TIME: 58.4 seconds EXPOSURE: 12.21 mGy (reference air kerma) TECHNOLOGIST TIME: 20 minutes FINDINGS: 4 fluoroscopic images of the right upper quadrant of the abdomen obtained by the portable image intensifier during an intraoperative cholangiogram show contrast being injected through the distended gallbladder and possibly the cystic duct outlining the intrahepatic biliary tree, the common hepatic and common bile ducts which are normal in size without filling defects. There is free flow of contrast into the duodenum. IMPRESSION: Essentially normal intraoperative cholangiogram. WSN: [id number] Ordering Physician: Lee Baker Dictated By: Jeevan Shaw MD, V Dictated Date/Time: 02/25/25 4:03 pm Reviewed By: Jeevan Shaw MD, V Signed By: Jeevan Shaw MD, V Signed Date/Time: 02/25/25 4:03 pm Transcribed By: YUDI Transcribed Date/Time: 02/25/25 4:00 pm * Exam Date Time Procedure Performing Provider Status 02/25/25 2:01 PM Cholangiogram Intraoperative Arpan Ramos; Modified Notes: (Cholangiogram Intraoperative) Reason For Exam: Lap tanya RESULT: Cholangiogram Intraoperative Cholangiogram Intraoperative, C-Arm < 1 Hour INDICATION: Reason: Lap tanya COMPARISONS: None TECHNIQUE: Fluoroscopy support was provided. There was no radiologist in attendance. FLUOROSCOPY TIME: 58.4 seconds EXPOSURE: 12.21 mGy (reference air kerma) TECHNOLOGIST TIME: 20 minutes FINDINGS: 4 fluoroscopic images of the right upper quadrant of the abdomen obtained by the portable image intensifier during an intraoperative cholangiogram show contrast being injected through the distended gallbladder and possibly the cystic duct outlining the intrahepatic biliary tree, the common hepatic and common bile ducts which are normal in size without filling defects. There is free flow of contrast into the duodenum. IMPRESSION: Essentially normal intraoperative cholangiogram. WSN: [id number] Ordering Physician: Lee Baker Dictated By: Jeevan Shaw MD, V Dictated Date/Time: 02/25/25 4:03 pm Reviewed By: Jeevan Shaw MD, V Signed By: Jeevan Shaw MD, V Signed Date/Time: 02/25/25 4:03 pm Transcribed By: YUDI Transcribed Date/Time: 02/25/25 4:00 pm * Exam Date Time Procedure Performing Provider Status 02/24/25 7:32 PM US RUQ Ashish Montano Wandy h (Verified) Notes: (US RUQ) Reason For Exam: Abdominal Pain;Other: RESULT: US RUQ US RUQ Hx of Present Illness: suddden ons of chest heaviness while walking dog, sob, non radiating, endorses cold symptoms this w e w diatrhea, known gallbladder disease; Reason: Other:; Abdominal Pain; Clinical Question(s): Cholecystitis COMPARISON: None. FINDINGS: Liver: Normal in size and echotexture. No focal lesion. Smooth hepatic contour. Main portal vein patent with normal hepatopetal direction of flow. Gallbladder: Multiple mobile echogenic foci are seen consistent with gallstones. Normal wall thickness. No pericholecystic fluid. Negative Rosa sign. Biliary Tree: No intrahepatic or extrahepatic bile duct dilation is identified. Common duct measures: 0.5-0.7 cm. Pancreas: No abnormality in the visualized portions of the pancreas. Right kidney: 11.4 cm in length. Normal parenchymal echotexture and thickness. No hydronephrosis, stone or mass. IMPRESSION: Cholelithiasis without evidence of cholecystitis. WSN: [id number] Ordering Physician: Eric Platt Dictated By: Dilip Gomez MD Dictated Date/Time: 02/24/25 7:58 pm Reviewed By: Dilip Gomez MD Signed By: Dilip Gomez MD Signed Date/Time: 02/24/25 7:58 pm Transcribed By: YUDI Transcribed Date/Time: 02/24/25 7:55 pm * Exam Date Time Procedure Performing Provider Status 02/24/25 7:06 PM Chest 2 Views Frontal and Lat Eliana Felix; Kenny (Verified) Notes: (Chest 2 Views Frontal and Lat) Reason For Exam: chest pain;CHF RESULT: Chest 2 Views Frontal and Lat PROCEDURE: Chest 2 Views Frontal and Lat INDICATION: 54 years old Female with Hx of Present Illness: Sudden onset of chest heaviness while walking dog, shortness of breath, non radiating, endorses cold symptoms this w e w diarrhea, known gallbladder disease; Reason: CHF; chest pain; Clinical Question(s): Other:. COMPARISON: Chest radiograph 2017 through April 16, 2023. FINDINGS: PA and lateral upright views of the chest obtained. Lines and tubes:None. Lungs and pleura: Lungs are clear. No pleural effusions.No evidence of pneumothorax. Heart, mediastinum and priya: Very mild tortuosity of the thoracic aorta. No cardiomegaly or pulmonary venous hypertension. Bones and soft tissues: Minor degenerative changes in the thoracic spine. IMPRESSION: 1. No evidence of acute cardiopulmonary disease. Thank you for allowing me to participate in the care of this patient. WSN: [id number] Ordering Physician: Eric Platt Dictated By: Byron Ochoa MD Dictated Date/Time: 02/24/25 7:23 pm Reviewed By: Byron Ochoa MD Signed By: Byron Ochoa MD Signed Date/Time: 02/24/25 7:23 pm Transcribed By: YUDI Transcribed Date/Time: 02/24/25 7:21 pm Vital Signs Most recent to oldest [Reference Range]: 1 2 3 Height 168 cm (02/25/25 5:41 PM) 168 cm (02/25/25 11:45 AM) 168 cm (02/25/25 11:15 AM) Weight 80 kg (02/25/25 11:45 AM) 80 kg (02/24/25 11:58 PM) 79.5 kg (02/24/25 8:01 PM) Oxygen Saturation [94-100 %] 100 % (02/26/25 10:39 AM) 98 % (02/26/25 8:06 AM) 97 % (02/26/25 4:00 AM) Pulse Rate [55-90 bpm] 51 bpm *L* (02/26/25 10:39 AM) 66 bpm (02/26/25 8:06 AM) 68 bpm (02/26/25 4:00 AM) Body Mass Index [18.5-24.99 kg/m2] 28.34 kg/m2 *H* (02/25/25 11:45 AM) 28.34 kg/m2 *H* (02/24/25 11:58 PM) 28.17 kg/m2 *H* (02/24/25 8:01 PM) Blood Pressure [90-138/55-84 mm Hg] 132/69mm Hg (02/26/25 10:39 AM) 120/64mm Hg (02/26/25 8:06 AM) 129/68mm Hg (02/26/25 4:00 AM) Respiratory Rate [16-30 br/min] 17 br/min (02/26/25 2:03 PM) 18 br/min (02/26/25 10:39 AM) 18 br/min (02/26/25 9:10 AM) Temperature [96.8-100.4 DegF] 98.6 DegF (02/26/25 10:39 AM) 98.2 DegF (02/26/25 8:06 AM) 98.3 DegF (02/26/25 4:00 AM) Liters per Minute 6 L/min (02/25/25 2:30 PM) Mode of Delivery (Oxygen) Room air (02/26/25 10:39 AM) Room air (02/26/25 8:06 AM) Room air (02/26/25 4:00 AM) Blood pressure sites Arm, right (02/26/25 10:39 AM) Arm, left (02/26/25 8:06 AM) Arm, left (02/26/25 4:00 AM) Temperature Route Oral (02/26/25 10:39 AM) Oral (02/26/25 8:06 AM) Oral (02/26/25 4:00 AM) Dry Weight 80 kg (02/25/25 11:45 AM) 80 kg (02/24/25 11:58 PM) 79.5 kg (02/24/25 8:01 PM) Weight Obtained Via Bed scale (02/24/25 11:58 PM) Patient/family stated (02/24/25 5:06 PM) Dry Weight Obtained Via Bed scale (02/24/25 11:58 PM) Patient/family stated (02/24/25 5:06 PM) History and physical note * Clifford TIAN, Grzegorz S: PERFORM Event Display: History and Physical Hospital Authored Date: Patient: ??KASHIF LANGLEY ? Age:??54 Years?Sex:??Female?:??1970?? Chief Complaint Right upper quadrant pain History of Present Illness 54-year-old female??for which were being consulted on for right upper quadrant pain. ??Patient is [id number] female with past medical history of??rheumatoid arthritis on IV infusions of Inflectra as well as oral methotrexate once a week 10 mg every ,??she denies any past surgical historywith the exception of a??cheek laceration that was repaired under anesthesia as a little girl??for w meche she required sedation.?? Patient reports she had??right upper quadrant pain starting at 4:30 PM. ??Pain was persistent.?? She reports when the pain started it was chest pain and belly pain combined. ??She reports it felt like??somebody was sitting on her chest as well as??epigastric pain that was radiating to her right upper quadrant. ??Patient reports prior to the pain started she ate??mashed potatoes with cauliflower, grilled chicken and??can only.?? Patient reports this is her third episode. ??The first episode occurred 6 months ago??where she went to the [facility] ED. ??Second episode??occurred in November 2024 which only lasted 2 hours so she did not go to the ED.?? This time the pain remained persistent for several hours which brought her to the ED. ??She associates the pain with nausea and diarrhea. ??She denies any fevers or chills.?? Patient does not take daily ibuprofen but did take ibuprofen and aspirin for the pain today.?? Patient lives at home with parker and son none of whom??are sick.?? Patient lives at home with a small dog that is fully vacci nated. ??No smoking history. ??No drinking history.?? No melena or hematochezia. Review of Systems Constitutional:??No weight loss, fever, chills, weakness or fatigue. Respiratory: No SOB, cough, or dyspnea Cardiovascular: No chest pain, flutters or palpitations?? Gastrointestinal:??No N/V or??constipation, no diarrhea, no rectal bleeding Genitourinary:??No frequency or burning with urination. Neurologic:??No VAZQUEZ, dizziness, syncope,??no changes in motor or sensory function.??No change in bowel or bladder control. Skin:??No rashes, bruises??or itching. Endocrine:??No heat or cold intolerance. Psychiatric:??No depression or anxiety. Physical Exam Vitals & Measurements T:??98.6?F?? HR:??56??(Peripheral)?? RR:??16?? BP:??141/75?? SpO2:??99%?? HT:??168??cm?? WT:??79.5??kg?? BMI:??28.17?? Constitutional: Well appearing, no acute distress, AOx3 HEENT: Normocephalic, atraumatic, PERRL,??moist mucous membranes. Respiratory: Normal WOB, CTA b/l. No wheezing, rales or rhonchi. Cardiovascular: Audible S1 S2 regular. No m/r/g Abdominal:??Abdomen is soft and compressible however there is significant tenderness to the right upper quadrant which she rates a 10 out of 10 with voluntary guarding. ??In addition she does have positive Rosa sign.?? No chest pain at the time of my examination.?? Patient is also moderately distended. Neurologic:?? Motor and sensation grossly intact b/l. Extremities: No wounds, bruises or injuries. No gross deformities. ROM normal. Skin: No rashes or lesions. No petechiae or purpura.?? Assessment/Plan 54-year-old female with past medical history of rheumatoid arthritis on??IV infusions of Inflectra and oral methotrexate??and no significant past surgical history??however did receive anesthesia??in the past for facial laceration as a kid.?? She presents with right upper quadrant pain Saturday nightat 4:30 PM which was unrelenting and did not??improve. ??Patient also reported significant chest pain at the time. ??On arrival to the ED??white count was 7.5.?? Patient's troponin was negative with a troponin of 6.?? AST and ALT was elevated at 62/42. ??Total bilirubin was 0.4.?? Vital signs with hypertension in the 170s presumably due to pain.?? UA was negative. ??Right upper quadrant ultrasound demonstrated multiple mobile echogenic foci seen consistent with gallstones, normal wall thickness, no pericholecystic fluid in the CBD measuring 0.5 to 0.7 cm.?? No biliary ductal dilation was noted on ultrasound.?? Physical exam was??concerning for moderately distended abdomen with positive Rosa and significant right upper quadrant pain.?? At this point patient's physical exam??and presence of stone on ultrasound is consistent with??symptomatic acute cholecystitis.?? Given this is a third episode patient is amenable to surgical intervention. ??She will be admitted to the EGS service for laparoscopic cholecystectomy.?? I presume the mild elevation in his LFTs is due to??some form of??fatty liver disease.?? Chest pain could have been a sequelae of??an acute??cholecystic episode.?? Troponins are negative and I reviewed the EKG with no??abnormalities. ?? Plan Admit to general surgery Plan for laparoscopic cholecystectomy Multimodal pain control Patient was on low-dose methotrexate??and Inflectra??injections for her rheumatoid arthritis,??may be considered??immunosuppressed??however not??prohibitive Clear liquid diet until midnight N.p.o. at midnight for laparoscopic cholecystectomy in the morning DVT prophylaxis Antiemetic ?? Discussed with Dr. Zepeda Page [phone] with any questions Problem List/Past Medical History Ongoing No qualifying data Procedure/Surgical History No qualifying data available. Home Medications Meloxicam: By Mouth, Daily Allergies NKA Family History No family history recorded. Lab Results Labs Last 24 Hours BLOOD COUNT & DIFF ? Event Name?? Event Result?? Date/Time?? WBC 7.5 k/mm3 02/24/25 18:09:00 RBC 4.33 m/mm3 02/24/25 18:09:00 Hgb 12.5 Gm/dL 02/24/25 18:09:00 Hct 37.4 % 02/24/25 18:09:00 MCV 86.4 femtoliters 02/24/25 18:09:00 MCH 28.9 pg 02/24/25 18:09:00 MCHC 33.4 Gm/dL 02/24/25 18:09:00 Platelet Count 236 k/mm3 02/24/25 18:09:00 MPV 10.4 femtoliters 02/24/25 18:09:00 Nucleated RBC (Automated) 0 #/100 WBC'S 02/24/25 18:09:00 ? CHEM GENERAL ? Event Name?? Event Result?? Date/Time?? Sodium 137 mmol/L 02/24/25 18:09:00 Chloride 101 mmol/L 02/24/25 18:09:00 Bicarbonate Level 27 mmol/L 02/24/25 18:09:00 Anion Gap 9 mmol/L 02/24/25 18:09:00 Glucose Level 94 mg/dL 02/24/25 18:09:00 BUN 18 mg/dL 02/24/25 18:09:00 Creatinine-Blood 0.55 mg/dL 02/24/25 18:09:00 Alkaline Phosphatase 136 units/L??High 02/24/25 18:09:00 AST (SGOT) 62 units/L??High 02/24/25 18:09:00 ALT (SGPT) 42 units/L??High 02/24/25 18:09:00 Bilirubin, Total 0.4 mg/dL 02/24/25 18:09:00 ? * Duane TIAN, Teodoro: PERFORM Event Display: History and Physical Hospital Authored Date: I have seen and evaluated this patient on the above documented date. I have discussed the case and its management with the resident team and APPs as documented in the progress note. ?? Seen as an EGS consultation to the ED. ?? 54 F -Acute cholecystitis - normal BI - 0.4, CBD - 0.5 - 0.7 cm??. ?? Plan - as noted below & -Admission to EGS -NPO/ IVF -IV antibiotics -OR planning for laparoscopic possible open cholecystectomy. ? -Comment- patient on methotrexate. ? RA EKG study * Event Display: ECG 12-Lead Authored Date: Please click on pdf link to open report * Event Display: ECG 12-Lead Authored Date: Ventricular Rate: 64 BPM Atrial Rate: 64 BPM P-R Interval: 150 ms QRS Duration: 112 ms Q-T Interval: 430 ms QTC Calculation(Bazett): 443 ms P Sandwich: 65 degrees R Sandwich: 29 degrees T Sandwich: 38 degrees Normal sinus rhythm Incomplete right bundle branch block Borderline ECG When compared with ECG of 16-Apr-2023 09:30, No significant change was found Confirmed by CHERYL LYONS MD ([id number]) on 02/24/2025 6:48:42 PM [place]: [facility] * Ranjeet ADAMSON, Latha: VERIFY, PERFORM, SIGN Event Display: Progress Note Hospital Authored Date: [id number] Patient: KASHIF LANGLEY Age: 54 years Sex: Female : 1970 Associated Diagnoses: None Author: Ranjeet ADAMSON, Latha Findings Problem Related to Alteration in Gastrointestinal : Alteration in Gastrointestinal Func/new 02/26/2025 15:00 EDT Alteration in GI status Related to Abdominal Surgery, Other: Acute Cholecystitis 02/25 Lap Tanya Goals & Outcomes, Gastrointestinal Establish a regular pattern of elimination for pt, Nutritional intake is adequate for metabolic needs, Pt will achieve normal/improved fluid balance, Pt will have a bowel movement prior to discharge, Pt will maintain adequate GI function appropriate for pt, Pt will maintain normal elimination patterns, Pt will resume/maintain adequate hemodynamic status, Ptwill tolerate age appropriate diet prior to discharge Interventions, Gastrointestinal Assess/monitor abdomen for distention, tenderness, Assess/monitor abdominal girth & bowel function, Assess/monitor bowel pattern, bowel sounds, flatus, Assess/monitor number of bowel movements, Assess/monitor color, quantity, quality, consistency of stoo, Assess/monitor pt for nausea, vomiting, Assess/monitor intake & output, Assess if pt tolerating diet, DVT prophylaxis as ordered, Elevate HOB to facilitate lung expansion, prevent aspiration, Teach Pt/caregiver on bowel elimination interventions, Teach Pt/caregiver re: importance of bowel regime, TeachPt/caregiver re: nutritional intake & dietary restrict, Teach/encourage deep breath & coughexercises, Teach/encourage use of incentive spirometer Goals/Interventions, Gastrointestinal Yes Gastrointestinal, Problem Start 02/24/2025 23:58 Reviewed plan with, Gastrointestinal Patient Patient Progression, Gastrointestinal Pt progressing according to plan . Nursing Data Gastrointestinal Data. : Gastrointestinal Data. 02/26/2025 15:01 EDT Gastrointestinal Symptoms Belching, Flatulence Abdomen Soft, Tender, Round RUQ Tenderness To palpation Bowel Sounds LUQ Present Bowel Sounds RUQ Present Bowel Sounds LLQ Present Bowel Sounds RLQ Present Last Bowel Movement 02/25/2025 Ostomy present No Gastric tube present No GI WNL except Normal Bowel Pattern Daily . Integumentary Data. : Integumentary Data. 02/26/2025 14:21 EDT Skin Integrity Not intact Integumentary WNL except Abdomen Multiple scattered Skin Abnormality Type: Surgical incision Wound Assessment Activity: Reassessment Surgical Incision Detailed Assessment: Yes Incision Surgical Detail: Laparoscopic site Incision Number of Sites: 4 Wound Dressing: Band-Aid Wound Dressing Assessment: Clean, Dry, Intact Wound Dressing Activity: Intact Wound Edge: Approximated with steri strips . Neurological Data. : Neurological Data. 02/26/2025 15:01 EDT 1 - 10 Pain Scale Score 7 Pain Interventions Pharmacological, PRN medication, Repositioning, Rest Pain relief acceptable Yes Neuro WNL . Respiratory/Pulmonary Data. : Respiratory/Pulmonary Data. 02/26/2025 15:01 EDT Respiratory Symptoms None Respiratory effort Unlabored Patient participation Cooperative Cough No cough Respiratory pattern Regular Left Upper Lobe Breath Sounds Clear Right Upper Lobe Breath Sounds Clear Right Middle Lobe Breath Sounds Clear Left Lower Lobe Breath Sounds Clear Right Lower Lobe Breath Sounds Clear Respiratory distress None Respiratory Treatment(s) Cough and deep breathe, Incentive spirometry Respiratory WNL except . Narrative/Incidental P: Alteration in gastrointestinal related to abdominal surgery I: See interventions listed above E: Patient is alert/ oriented x4. Reports pain 7/10, medicated with scheduled and PRN Meds, see MAR. Lungs are clear on room air. Encouraged to cough/ deep breathe and use incentive spirometer. Has +pedal pulses, + color/ motion/ sensation, no edema. Patient has + bowel sounds x4 quadrants, abdomen is soft/ round/ tender. Diet is low fat, reported nausea after breakfast. Medicated with PRN Zofran, ACS notified. Tolerated lunch well. Voiding clear yellow urine. Skin is not intact, 4 abdominal lap sites with Band-Aids, clean/dry/ intact. Ambulating independently. Call dobbins within reach, able to use appropriately. . * Melania Blount RN: PERFORM, SIGN, VERIFY Event Display: Progress Note Hospital Authored Date: [id number] Patient: KASHIF LANGLEY Age: 54 years Sex: Female : 1970 Associated Diagnoses: None Author: Melania Blount RN Findings Problem Related to Alteration in Gastrointestinal : Alteration in Gastrointestinal Func/new 02/25/2025 19:00 EDT Alteration in GI status Related to Other: Acute Cholecystitis 02/25 Lap Tanya Goals & Outcomes, Gastrointestinal Establish a regular pattern of elimination for pt, Nutritional intake is adequate for metabolic needs, Pt will achieve normal/improved fluid balance, Pt will have a bowel movement prior to discharge, Pt will maintain adequate GI function appropriate for pt, Ptwill maintain normal elimination patterns, Pt will resume/maintain adequate hemodynamic status, Pt w ill tolerate age appropriate diet prior to discharge Interventions, Gastrointestinal Assess/monitor abdomen for distention, tenderness, Assess/monitor bowel pattern, bowel sounds, flatus, Assess/monitor number of bowel movements, Assess/monitor pt for nausea, vomiting, Assess/monitor effects of re-hydration, Assess/monitor intake & output, Assessif pt tolerating diet, DVT prophylaxis as ordered, Elevate HOB to facilitate lung expansion, prevent aspiration, Teach/encourage deep breath & cough exercises, Teach/encourage use of incentive spirometer Goals/Interventions, Gastrointestinal Yes Gastrointestinal, Problem Start 02/24/2025 23:58 Reviewed plan with, Gastrointestinal Patient Patient Progression, Gastrointestinal Pt progressing according to plan . Evaluation P: Alteration in Gastrointestinal I: See interventions listed in care plan above E: Patient is alert and oriented x4. Lung sounds clear, uses incentive spirometer, levels at 1500. Positive bowel sounds, abdomen is soft, round, and tender x4 quadrants, denies nausea/vomiting, lastbm was 02/25. Abdominal lap sites x4 with band-aids in place, dry and intact. Ambulated in the hallway with standby assist, gait steady. Voids clear yellow urine. Tylenol, oxycodone, and Dilaudid given for pain management. See CIS for complete assessment. Progressing along plan of care.. * Kimmy ADAMSON, Ge: PERFORM, SIGN, VERIFY Event Display: Progress Note Hospital Authored Date: [id number] Patient: KASHIF LANGLEY Age: 54 years Sex: Female : 1970 Associated Diagnoses: None Author: Kimmy RN, Ge Findings Problem Related to Alteration in Gastrointestinal : Alteration in Gastrointestinal Func/new 02/25/2025 6:00 EDT Alteration in GI status Related to Other: Acute Cholecystitis Goals & Outcomes, Gastrointestinal Establish a regular pattern of elimination for pt, Nutritional intake is adequate for metabolic needs, Pt will achieve normal/improved fluid balance, Pt will have a bowel movement prior to discharge, Pt will maintain adequate GI function appropriate for pt, Ptwill maintain normal elimination patterns, Pt will resume/maintain adequate hemodynamic status, Pt w ill tolerate age appropriate diet prior to discharge Interventions, Gastrointestinal Assess/monitor abdomen for distention, tenderness, Assess/monitor abdominal girth & bowel function, Assess/monitor bowel pattern, bowel sounds, flatus, Assess/monitor number of bowel movements, Assess/monitor color, quantity, quality, consistency of stoo, Assess/monitor pt for nausea, vomiting, Assess/monitor effects of re-hydration, Assess/monitor intake &output, Assess if pt tolerating diet, DVT prophylaxis as ordered, Teach Pt/caregiver diet & give copy of dietary instructions, Teach Pt/caregiver on bowel elimination interventions, Teach Pt/caregiver re: importance of bowel regime, Teach Pt/caregiver re: nutritional intake & dietary restrict, Teach/encourage deep breath & cough exercises, Teach/encourage use of incentive spirometer BH Goals/Interventions, Gastrointestinal Yes Gastrointestinal, Problem Start 02/24/2025 23:58 Reviewed plan with, Gastrointestinal Patient Patient Progression, Gastrointestinal Plan Initiation . Nursing Data Cardiac Data. : Cardiac Data. 02/25/2025 8:43 EDT Cardiovascular WNL . Gastrointestinal Data. : Gastrointestinal Data. 02/25/2025 8:43 EDT Abdomen Soft, Tender, Round LLQ Tenderness To palpation LUQ Tenderness To palpation RLQ Tenderness To palpation RUQ Tenderness To palpation Bowel Sounds LUQ Present Bowel Sounds RUQ Present Bowel Sounds LLQ Present Bowel Sounds RLQ Present GI WNL except Normal Bowel Pattern Daily . Genitourinary Data. : Genitourinary Data. 02/25/2025 8:43 EDT WNL . Integumentary Data. : Integumentary Data. 02/25/2025 8:43 EDT Sensory Perception No impairment Moisture Rarely moist Activity Walks frequently Mobility No limitations Nutrition Probably inadequate Friction and Shear No apparent problem Parker Score 21 Nursing Care Plan initiated/updated Yes . Musculoskeletal Data. : Musculoskeletal Data. 02/25/2025 8:43 EDT Musculoskeletal WNL . Vital Signs : VITAL SIGNS SECTION 02/25/2025 7:49 EDT Temperature 97.8 DegF Temperature Route Oral Pulse Rate 58 bpm Respiratory Rate 17 br/min Systolic Blood Pressure 125 mm Hg Diastolic Blood Pressure 80 mm Hg Mean Arterial Pressure 95 mm Hg Pulse Pressure 45 mm Hg Oxygen Saturation 100 % Mode of Delivery (Oxygen) Room air . Narrative/Incidental Patient is alert and oriented, denies much pain at this time, well controlled. Lung sounds are clear to auscultation, denies shortness of breath or chest pains. Pulses palpable, no edema noted. Bowelsounds are active, abdomen is round, distended and tender to the RUQ. Last BM 02/24. Skin is intact at this time. Patient ambulates independently with steady gait. Voiding clear yellow urine. Plan forOR today, can make needs known. Call dobbins in reach for safety. . Note * Latha Pollack RN: PERFORM Event Display: Discharge/Transfer Note Hospital Authored Date: [id number] Nursing Discharge Note Entered On: 02/26/2025 15:08 EDT Performed On: 02/26/2025 15:08 EDT by Latha Pollack RN Nursing Discharge Note 2 Discharge Time : 02/26/2025 15:08 EDT Discharge Level of Care at Discharge : Home/Penitentiary/Foster Care Patient Left Unit Via : Wheelchair Patient Accompanied Off Unit with : Significant other DC Instructions Provided & Signed by Pt : Yes Patient Understands D/C Instructions : Yes Patient Instructions Discharge Signed : Yes Did Pt have Specialty Bed or Wound Vac : No Latha Pollack RN - 02/26/2025 15:08 EDT * Hermelindo Mckoy MD: PERFORM Event Display: Discharge/Transfer Note Hospital Authored Date: [id number] Patient: ??KASHIF LANGLEY ? Age:??54 Years?Sex:??Female?:??1970?? Admit Date Admission Date: 02/24/2025 Discharge Date 02/26/2025 Discharge Diagnoses General medical, 02/24/2025 Hospital Course 54-year-old female with past medical history of rheumatoid arthritis on??IV infusions of Inflectra and oral methotrexate??and no significant past surgical history??however did receive anesthesia??in the past for facial laceration as a kid.?[place] [facility] [place]??with right upper quadrant pain which was unrelenting and did not improve.?? Additionally patient reports significant chest pain??at that time.??On arrival to the ED??white count was 7.5.?? Patient's troponin was negative with a troponin of 6.??Patient LFTs initially??jasmete??concerning for possible,??bile duct obstruction.??Right upper quadrant ultrasound demonstrated multiple mobile echogenic foci seen consistent with gallstones, normal wall thickness, no pericholecystic fluid in the CBD measuring 0.5 to 0.7 cm.?? No biliary ductal dilation was noted on ultrasound.?? Physical exam was??concerning for moderately distended abdomen with positive Rosa and significant right upper quadrant pain??concerning for clinical acute cholecystitis.?Brought to the OR for??laparoscopic cholecystectomy with intraoperative cholangiogram which was negative for any filling??defects and overall was deemed negative.?? Postoperatively patient's LFTs have continued??to improve, the patient is tolerating a low-fat diet,ambulating without issue, voiding spontaneously and was pain is controlled with p.o. medications. ??At this time she is deemed safe and appropriate for discharge home??with??close follow-up. Objective/Physical Exam on Day of Discharge Vitals & Measurements T:??98.2?F?? HR:??66??(Peripheral)?? RR:??18?? BP:??120/64?? SpO2:??98%?? HT:??168??cm?? WT:??80??kg?? BMI:??28.34?? General: Well developed adult female lying in bed; appears comfortable. Head: Normocephalic, atraumatic. Cardiopulmonary: No increased work of breathing; respirations even and unlabored. Speaking in full sentences Gastrointestinal: Soft, distended, minimal erinn-incisional tenderness to palpation, port sites are C/D/I Neurologic: Cranial nerves II-XII grossly intact. Skin: No rashes or lesions. ?? Musculoskeletal: No cyanosis or clubbing. No gross deformities Assessment/Plan Discharge patient was deemed safe and appropriate for discharge??home with close follow-up. Future Appointments Saturday 9:20 AM EDT ?? With: Nallely Chan MD Where: [facility] [address] [place] [address]- Status: Pending PCP Follow-Up/Heads-Up Please schedule call your PCP within 3 days to schedule follow-up appointment to discuss your recent hospitalization and surgery. Patient Discharge Condition stable Discharge Disposition Home Home Health Face to Face ^HomeHealthFTF Procedures Performed This Visit Cholecystectomy Laparoscopic Cholecystectomy with Intra-Op Cholangiogram Laparoscopic Inpatient Medications Medications (6) Active SCHEDULED: (2) Acetaminophen 325 mg Tablet (Acetaminophen Tablet) ??650 mg, By Mouth, Every 6 hours Enoxaparin 40 mg Inj (Enoxaparin Inj) ??40 mg 0.4 mL, Subcutaneous Injection, Daily CONTINUOUS: (1) Lactated Ringers (1000 mL) Cont IV 1,000 mL (LR 1,000 mL) ??1,000 mL, IV Infusion, 100 mL/hr PRN: (3) HYDROmorphone 0.5 mg/0.5 mL Inj Syringe (Dilaudid Inj) ??0.2 mg 0.2 mL, IV Push Slowly, Every 4 hours Ondansetron 2mg/mL Inj (2mL Vial) (Zofran Inj) ??4 mg, IV Push, Every 6 hours OxyCODONE 5 mg IR Tablet (oxyCODONE 5 mg oral tablet) ??5 mg, By Mouth, Every 4 hours Discharge Medications Acetaminophen (acetaminophen 325 mg oral tablet)??650 Milligram 2 tablet By Mouth Every 6 hours for14 Days Docusate (Colace sodium 100 mg oral capsule)??100 Milligram 1 capsule By Mouth 2 times a day as needed for 14 Days for constipation Folic Acid (folic acid 1 mg oral tablet)??1 Milligram 1 tablet By Mouth Daily Infliximab (Inflectra)??5 Milligrams/Kilogram IV Infusion Every 6 weeks Meloxicam??By Mouth Daily Methotrexate (methotrexate 10 mg oral tablet)??1 tab(s) 10 Milligram By Mouth Every Oxycodone (oxyCODONE 5 mg oral tablet)??5 Milligram By Mouth Every 4 hours as needed for 5 Days Pain , Severe Polyethylene Glycol 3350 (MiraLax oral powder for reconstitution)??17 gram By Mouth Daily as neededConstipation for 10 Days Labs Last 24 Hours BLOOD COUNT & DIFF ? Event Name?? Event Result?? Date/Time?? WBC 8.4 k/mm3 02/26/25 03:32:00 RBC 3.97 m/mm3??Low 02/26/25 03:32:00 Hgb 11.6 Gm/dL??Low 02/26/25 03:32:00 Hct 34.5 %??Low 02/26/25 03:32:00 MCV 86.9 femtoliters 02/26/25 03:32:00 MCH 29.2 pg 02/26/25 03:32:00 MCHC 33.6 Gm/dL 02/26/25 03:32:00 Platelet Count 228 k/mm3 02/26/25 03:32:00 MPV 10.7 femtoliters 02/26/25 03:32:00 Nucleated RBC (Automated) 0 #/100 WBC'S 02/26/25 03:32:00 ? CHEM GENERAL ? Event Name?? Event Result?? Date/Time?? Sodium 137 mmol/L 02/26/25 03:32:00 Chloride 105 mmol/L 02/26/25 03:32:00 Bicarbonate Level 22 mmol/L 02/26/25 03:32:00 Anion Gap 10 mmol/L 02/26/25 03:32:00 Glucose Level 106 mg/dL??High 02/26/25 03:32:00 BUN 11 mg/dL 02/26/25 03:32:00 Creatinine-Blood 0.7 mg/dL 02/26/25 03:32:00 Calcium, Ionized pH Corrected 1.28 mmol/L 02/26/25 03:32:00 Phosphorus 3.6 mg/dL 02/26/25 03:32:00 Magnesium 1.9 mg/dL 02/26/25 03:32:00 Alkaline Phosphatase 172 units/L??High 02/26/25 03:32:00 AST (SGOT) 228 units/L??High 02/26/25 03:32:00 ALT (SGPT) 379 units/L??High 02/26/25 03:32:00 Bilirubin, Total 0.6 mg/dL 02/26/25 03:32:00 Bilirubin, Direct 0.2 mg/dL 02/26/25 03:32:00 Bilirubin, Indirect 0.4 mg/dL 02/26/25 03:32:00 ? Patient Education Titles Web[employer] Patient Education - Cholecystectomy?? [employer] Patient Education - After Gallbladder Surgery?? Follow-Up Appointments Added Follow Up ?Time Frame ?Comments Melba TIAN, Cynthia?1-2 day: call to discuss follow up visit?Please call your PCP within 3 days to schedule follow up visit to discuss your recent hospitalization and surgery Patient Instructions AFTER YOUR SURGERY? IF YOU HAVE HAD GENERAL ANESTHESIA, NO DRIVING, DRINKING ALCOHOL, OR MAKING LEGAL DECISIONS FOR THENEXT 24 HOURS. ?? Diet: ?Until your follow-up visit please adhere to a low-fat diet ?Drink 6 to 8 glasses of fluids per day. ?No alcoholic beverages post-operatively or while taking pain medications. ?? Activity:?Avoid any activity that causes discomfort.?Normal daily activities are safe. ?Avoid straining, vigorous sports or lifting anything more than 10 pounds for 4 weeks, or as directed by your surgeon. ?After the first 24 hours, you may drive whenever comfortable, but do not go alone the first time and do not drive after taking pain medications. ? Dressings and Wound care: ?You may remove your bandage (if you have one in place) in 48 hours and shower (no soaking in a tub, pool, or hot tub.)?If you have steri-strips, carmella, or sutures, it???s okay if they happen to get wet, but be sure to pat dry with a clean towel as soon as you get out. ?It is very important to keep your incision area clean and dry.?You may cover up the incisions with a bandage for protection, but once the incisions are dried/ scabbed over, you may leave them open to air.?Steri- strips will start curling up and drying out over several days.?Theymay start to drop off by themselves, and this is all right.? Medications: ?Pain:?If you did not receive your prescription at your office visit, you will be given a prescription for pain at the time of discharge. Follow the instructions for taking these medications.?If the pain you are experiencing is mild, extra-strength Tylenol will likely take care of i t.?Remember that narcotic pain medications can cause constipation.?Some narcotics contain Tylenol (acetaminophen) and if additional pain medicines are required, do not take additional Tylenol products- use ibuprofen or naproxen instead.?Take a stool softener as prescribed below and drink plenty of fluids.?NOTE: Refills for pain medications will be available (if needed) Saturday thru 8:30 am to 4:00 pm.??You or a family member will have to come to the office to group teacher a paper prescription.??DO NOT call the office or answering service on nights or weekends for pain medication refills because pharmacies do not fill narcotics by phone or fax. ?Home Medications: Resume any medications your primary physician has prescribed unless specifically instructed. ?Antibiotics: If one is prescribed for you, be sure to take it until there are no more pills left.?Stool softener:?Colace 100 mg??or its generic form??DOCUSATE??tablet by mouth twice a day as directed. Some people will need to take stool softener short-term after surgery. If you have chronic diarrhea or inflammatory bowel disease, you should not take stool softener unless you are c onstipated ?Constipation:?Take??Milk of Magnesia??as directed on the bottle every 6 hours for 24hours, OR Miralax at night per directions.?These are both available over the counter.?If thisfails to relieve the problem, call the office. ?? Expect the following: ?Some oozing of blood to the bandage in the first 24 hours. ?Fatigue, especially in the first 24 hours. ?Pain or discomfort, which will lessen as time passes.?If your surgery was done laparoscopically, you could have abdominal, shoulder, or collarbone pains.?These will disappear gradually over several days. ?Constipation is a possibility, especially if narcotic pain relievers are needed. ?? Call the office or answering service immediately if any of the following occur: ?Severe pain not relieved by pain medication. ?Uncontrollable bleeding/ bleeding that saturates your dressing. ?Any bright redness, red streaking, or swelling around your incision, or any bad odor, or pus-like drainage coming from your incision. ?Temperature more than??101 F (38 C). ?Repeated nausea and vomiting or inability to tolerate or hold down fluids ?Inability to urinate. ?? Post-operative appointments: ?If you have not already scheduled your follow-up appointment, call . You should arrange to be seen in 2-3 weeks after surgery.?Ask regarding exact timing of follow-up. ?A nurse visit might also be schedule for 1 week after for staple/suture removal or wound check.? Problems or Questions: ?Office hours are 8:30 am to 5:00 pm Saturday thru Saturday. It is best to call during office hours with routine questions.?You may reach the clinical staff during office hours at ?If you have an after-hours emergency, you can call the answering service at . ?If you cannot reach our office and your problem truly requires emergency attention, go to??[facility] Emergency Room??or the nearest emergency room. * Ranjeet ADAMSON, Latha: PERFORM Event Display: Patient Education/Instruction Authored Date: [id number] Inpatient Adult Discharge Instructions. [address] [address] Name: KASHIF LANGLEY : 1970?? Visit: 02/24/2025 17:04?? Current Date: 02/26/2025 14:18 ?? Account: [id number]?? Inpatient Adult Discharge Instructions We would like to thank you for allowing us to assist you with your healthcare needs. The following includes patient education materials and information regarding your injury/illness. Our entire staffstrives to provide an excellent experience for our patients and their families. PLEASE ENSURE YOU FOLLOW-UP PER THE INSTRUCTIONS BELOW! ?? YOUR OPINION IS IMPORTANT TO US! Please complete the survey you may receive by mail or email. Your feedback will be used to make improvements to the healthcare experiences of our patients and their families. Surveys are administered by [employer] ?? If further treatment with your primary care physician or another doctor is recommended, it is important for you to keep the appointment. Call your primary care physician or return to the Emergency Department immediately if your condition worsens, fails to improve, or new symptoms develop. If you need to find a doctor, you can call [facility] for a referral at [phone] or toll free at [phone]) or log in to [email or web address].. ?? [facility], in keeping with [facility] guidance, no longer requires face masks for staff, patientsor visitors in most situations. Similiar to time spent indoors at other locations, there is the chance that you were exposed to repiratory viruses during your time with us (such as flu or COVID-19). If you develop symptoms concerning for a viral respiratory infection, please seek testing (and treatment if indicated) from your medical provider or home test kit. ?? You can view and manage your care through the patient portal or by using a health care oscar of your choosing. [employer] is a website that allows you to securely view your medical information including your hospital discharge summary, office visit summaries, medications and follow-up visits. You can also request appointments, renew medications, and request access to your medical information using a health care oscar of your choosing, or just ask a question. You are entitled to know the individuals who participated in your treatment. This information is available within your medical record and will be provided upon your request. You can enroll at [email or web address] or register d uring your next office visit. You have been discharged from [facility], Patient Care Unit: SW6??. If you have any questions regarding these instructions, including results of studies pending, afteryou leave, please call us and we will be happy to assist you 03/06. [facility] Your Care Team Attending Physician Teodoro Zepeda MD?? Consulting Providers Teodoro Zepeda MD?? Discharging Providers Hermelindo Mckoy MD Your Diagnosis General medical Tests Performed Below is a partial list of the tests performed during your hospitalization. You may have had other tests and procedures not included in this list. Please discuss all test results with your provider. Basic Metabolic Panel CBC w/ Differential Comprehensive Metabolic Panel COVID-19, RSV, and Flu A/B, Rapid PCR High??Sensitivity??Troponin T Ionized Calcium Lipase Magnesium Level Phosphorus Level Urinalysis w/hold for Urine Culture US RUQ XR C-Arm < 1 Hour XR Chest 2 Views Frontal and Lat XR Cholangiogram Intraoperative Basic Metabolic Panel?? CBC w/ Differential?? COVID-19, RSV, and Flu A/B, Rapid PCR?? Comprehensive Metabolic Panel?? Hepatic Function Panel (LFT's)?? High??Sensitivity??Troponin T?? Ionized Calcium?? Lipase?? Magnesium Level?? Pathology Tissue Request ()?? Phosphorus Level?? US RUQ?? Urinalysis w/hold for Urine Culture?? C-Arm < 1 Hour?? Chest 2 Views Frontal and Lat (XR Chest 2 Views Frontal and Lat)?? Cholangiogram Intraoperative?? Primary Care Provider Cynthia Reilly MD? Advance Directive Health Care Proxy on File Yes - Health Care Proxy Discharge Vitals Temperature: 98.6 DegF Height: 168 cm Pulse Rate:??51 bpm??Low Weight: 80 kg Respiratory Rate: 17 br/min Body Mass Index:??28.34 kg/m2??High Systolic Blood Pressure: 132 mm Hg Body surface area: 1.93 Diastolic Blood Pressure: 69 mm Hg ?? Oxygen Saturation: 100 % ?? Studies Pending All studies ordered during this hospital stay have been completed unless listed below. Please discuss all pending results with your provider listed above in these instructions. ?? Basic Metabolic Panel?? CBC w/ Differential?? Hepatic Function Panel (LFT's)?? Ionized Calcium?? Magnesium Level?? Pathology Tissue Request ()?? Phosphorus Level?? What to do next Instructions From Your Doctor AFTER YOUR SURGERY? IF YOU HAVE HAD GENERAL ANESTHESIA, NO DRIVING, DRINKING ALCOHOL, OR MAKING LEGAL DECISIONS FOR THENEXT 24 HOURS. ?? Diet: ?Until your follow-up visit please adhere to a low-fat diet ?Drink 6 to 8 glasses of fluids per day. ?No alcoholic beverages post-operatively or while taking pain medications. ?? Activity:?Avoid any activity that causes discomfort.?Normal daily activities are safe. ?Avoid straining, vigorous sports or lifting anything more than 10 pounds for 4 weeks, or as directed by your surgeon. ?After the first 24 hours, you may drive whenever comfortable, but do not go alone the first time and do not drive after taking pain medications. ? Dressings and Wound care: ?You may remove your bandage (if you have one in place) in 48 hours and shower (no soaking in a tub, pool, or hot tub.)?If you have steri-strips, carmella, or sutures, it???s okay if they happen to get wet, but be sure to pat dry with a clean towel as soon as you get out. ?It is very important to keep your incision area clean and dry.?You may cover up the incisions with a bandage for protection, but once the incisions are dried/ scabbed over, you may leave them open to air.?Steri- strips will start curling up and drying out over several days.?Theymay start to drop off by themselves, and this is all right.? Medications: ?Pain:?If you did not receive your prescription at your office visit, you will be given a prescription for pain at the time of discharge. Follow the instructions for taking these medications.?If the pain you are experiencing is mild, extra-strength Tylenol will likely take care of i t.?Remember that narcotic pain medications can cause constipation.?Some narcotics contain Tylenol (acetaminophen) and if additional pain medicines are required, do not take additional Tylenol products- use ibuprofen or naproxen instead.?Take a stool softener as prescribed below and drink plenty of fluids.?NOTE: Refills for pain medications will be available (if needed) Saturday thru 8:30 am to 4:00 pm.??You or a family member will have to come to the office to group teacher a paper prescription.??DO NOT call the office or answering service on nights or weekends for pain medication refills because pharmacies do not fill narcotics by phone or fax. ?Home Medications: Resume any medications your primary physician has prescribed unless specifically instructed. ?Antibiotics: If one is prescribed for you, be sure to take it until there are no more pills left.?Stool softener:?Colace 100 mg??or its generic form??DOCUSATE??tablet by mouth twice a day as directed. Some people will need to take stool softener short-term after surgery. If you have chronic diarrhea or inflammatory bowel disease, you should not take stool softener unless you are c onstipated ?Constipation:?Take??Milk of Magnesia??as directed on the bottle every 6 hours for 24hours, OR Miralax at night per directions.?These are both available over the counter.?If thisfails to relieve the problem, call the office. ?? Expect the following: ?Some oozing of blood to the bandage in the first 24 hours. ?Fatigue, especially in the first 24 hours. ?Pain or discomfort, which will lessen as time passes.?If your surgery was done laparoscopically, you could have abdominal, shoulder, or collarbone pains.?These will disappear gradually over several days. ?Constipation is a possibility, especially if narcotic pain relievers are needed. ?? Call the office or answering service immediately if any of the following occur: ?Severe pain not relieved by pain medication. ?Uncontrollable bleeding/ bleeding that saturates your dressing. ?Any bright redness, red streaking, or swelling around your incision, or any bad odor, or pus-like drainage coming from your incision. ?Temperature more than??101 F (38 C). ?Repeated nausea and vomiting or inability to tolerate or hold down fluids ?Inability to urinate. ?? Post-operative appointments: ?If you have not already scheduled your follow-up appointment, call . You should arrange to be seen in 2-3 weeks after surgery.?Ask regarding exact timing of follow-up. ?A nurse visit might also be schedule for 1 week after for staple/suture removal or wound check.? Problems or Questions: ?Office hours are 8:30 am to 5:00 pm Saturday thru Saturday. It is best to call during office hours with routine questions.?You may reach the clinical staff during office hours at ?If you have an after-hours emergency, you can call the answering service at . ?If you cannot reach our office and your problem truly requires emergency attention, go to??[facility] Emergency Room??or the nearest emergency room. ?? Orders? 02/26/25 10:42:00 EDT?? Scheduled Follow-Up Appointments Saturday 9:20 AM EDT ?? With: Nallely Chan MD Where: [facility] [address] [place] [address]- Status: Pending You Need to Schedule the Following Appointments Follow Up with??Cynthia Reilly MD When:??Within 1-2 day: call to discuss follow up visit Why: Please call your PCP within 3 days to schedule follow up visit to discuss your recent hospitalization and surgery Where: [address] [facility] [place] [address]- Discharge Medications KASHIF LANGLEY :1970 Visit Date:02/24/2025 Medications: Please continue your medications until treatment is completed or stopped by your provider. Medications not listed below should be discontinued. Discuss any questions related to medications with your provider. What How Much When Instructions Next Dose New Acetaminophen (acetaminophen 325 mg oral tablet) 2 tab(s) Oral Every 6 hours Duration: 14 Days Pickup at [facility] 02/26 3pm New Docusate (Colace sodium 100 mg oral capsule) 1 capsule Oral Twice a day as needed for for constipation Duration: 14 Days Pickup at [place] [address] 02/27 9am New Oxycodone (oxyCODONE 5 mg oral tablet) 5 Milligram Oral Every 4 hours as needed for Pain , Severe Duration: 5 Days Pickup at [place] [address] 02/26 6pm as needed New Polyethylene Glycol 3350 (MiraLax oral powder for reconstitution) 17 gram Oral Daily as needed for Constipation Duration: 10 Days Pickup at [place] [address] 02/27 9am Unchanged Folic Acid (folic acid 1 mg oral tablet) 1 tab(s) Oral Daily 02/27 9am Unchanged Infliximab (Inflectra) 5 Milligrams/Kilogram Intravenous Infusion Every 6 weeks as directed Unchanged Meloxicam Oral Daily 02/27 9am Unchanged Methotrexate (methotrexate 10 mg oral tablet) 1 tab(s) Oral Every as directed Pharmacy Information [facility]: [address], [place] [id number] [phone] Prescription Given During Visit Acetaminophen (acetaminophen 325 mg oral tablet) - 2 tablet = 650 mg, By Mouth, Every 6 hours, # 112 tablet, 0 Refills, [facility], [address] [place] [address] [phone]?? Docusate (Colace sodium 100 mg oral capsule) - 1 capsule = 100 mg, By Mouth, 2 times a day, # 100 capsule, 0 Refills, [facility] [address] [address] [phone]?? Oxycodone (oxyCODONE 5 mg oral tablet) - 5 mg, By Mouth, Every 4 hours, # 15 tablet, 0 Refills, [facility] [address] [address] [phone]?? Polyethylene Glycol 3350 (MiraLax oral powder for reconstitution) - 17 Gm, By Mouth, Daily, # 255 Gm, 0 Refills, [facility], [address] [place] [phone]?? Laboratory Results Below is a partial list of the most recent Laboratory test results done prior to this discharge. You may have had other tests and procedures not included in this list. Please discuss all test resultswith your provider. Est Creatinine Clearance - 88.49 mL/min (02/26/2025) Basic Metabolic Panel (02/26/2025) ???Sodium - 137 mmol/L???Potassium - 4.0 mmol/L???Chloride - 105 mmol/L???Bicarbonate Level - 22 mmol/L???Anion Gap - 10 mmol/L???Glucose Level - 106 mg/dL???BUN - 11 mg/dL???Creatinine-Blood - 0.70 mg/dL???Estimated GFR Creatinine - 104 ML/MIN/1.73 M2???Calcium - 9.0 mg/dL CBC w/ Differential (02/26/2025) ???WBC - 8.4 k/mm3???RBC - 3.97 m/mm3???Hgb - 11.6 Gm/dL???Hct - 34.5 %???MCV - 86.9 femtoliters???MCH - 29.2 pg???MCHC - 33.6 Gm/dL???Platelet Count - 228 k/mm3???RDW-SD - 39.4 femtoliters???MPV - 10.7 femtoliters???Nucleated RBC (Automated) - 0.0 #/100 WBC'S???Abs. NRBC - 0.0 k/mm3???Abs. Neut - 5.6 k/mm3???Abs. Lymph - 2.1 k/mm3???Abs. [place] - 0.6 k/mm3???Abs. Eo - 0.0 k/mm3???Abs. Baso - 0.0 k/mm3???Neut % - 67.2 %???Lymph % - 24.9 %???[place] % - 7.1 %???Eos % - 0.2 %???Baso % - 0.2 %???Imm Gran - 0.4 %???Abs. Imm Gran - 0.0 k/mm3 Comprehensive Metabolic Panel (02/24/2025) ???Sodium - 137 mmol/L???Potassium - 3.7 mmol/L???Chloride - 101 mmol/L???Bicarbonate Level - 27 mmol/L???Anion Gap - 9 mmol/L???Glucose Level - 94 mg/dL???BUN - 18 mg/dL???Creatinine-Blood - 0.55 mg/dL???Estimated GFR Creatinine - 110 ML/MIN/1.73 M2???Calcium - 9.2 mg/dL???Protein, Total - 7.8 Gm/dL???Albumin - 4.1 Gm/dL???AG Ratio - 1.1???Alkaline Phosphatase - 136 units/L???AST (SGOT) - 62 units/L???ALT (SGPT) - 42 units/L???Bilirubin, Total - 0.4 mg/dL COVID-19, RSV, and Flu A/B, Rapid PCR (02/24/2025) ???Influenza A PCR - NEGATIVE???Influenza B PCR - NEGATIVE???RSV PCR - NEGATIVE???COVID-19 PCR Specimen Source - NASAL???COVID-19 PCR Result - NEGATIVE High??Sensitivity??Troponin T (02/24/2025) ? ?High Sensitivity Troponin (HSTnT) - <6 ng/L Ionized Calcium (02/26/2025) ???Calcium, Ionized pH Corrected - 1.28 mmol/L Lipase (02/24/2025) ???Lipase, Serum/Plasma - 35 units/L Magnesium Level (02/26/2025) ???Magnesium - 1.9 mg/dL Phosphorus Level (02/26/2025) ???Phosphorus - 3.6 mg/dL Urinalysis w/hold for Urine Culture (02/24/2025) ???Appear/Color, Urine - LIGHT YELLOW???Specific Ellis, Urine - 1.016???pH, Urine - 7.5???Albumin, Urine - NEGATIVE???Glucose, Urine - NEGATIVE???Ketones, Urine - NEGATIVE???Bilirubin, Urine - NEGATIVE???Hemoglobin, Urine - 2+???Nitrite, Urine - NEGATIVE???Leukocyte, Urine - NEGATIVE???Urobilinogen - NORMAL???WBC's, Urine - NONE SEEN???RBC's, Urine - 4 /HPF???Bacteria - SLIGHT???Squamous Epith - <1 /HPF? ?Amorphous Crystals - MODERATE? ?Hold Urine Culture - Testing available 48 hours from time of collection. You will be contacted within 72 hours with your results. Allergies (NKA means No Known Allergies) NKA Problems No qualifying data available Education Materials Below is the list of Educational Leaflet Providered with your Discharge Instructions. [employer] Patient Education - Cholecystectomy?? [employer] Patient Education - After Gallbladder Surgery?? Valuables and Belongings I fully understand and agree that [facility] accepts no responsibility for all my personal property including clothing, toilet articles, radios, jewelry, dentures, hearing aids, rings, money, or any other property that is in my possession or is brought to me after admission. I understand certain valuables may be placed in a hospital safe for a short period of time. I understand that the hospital is not liable for loss or damage due to accident, fire, or other natural occurrence while said property is in the safe. I accept full responsibility for any personal property that I keep with me, and will not hold the hospital responsible in case of loss or disappearance. I acknowledge that i have been encouraged to send valuables and belongings home. ?? No Valuables/Belongings: No valuables/belongings present Review of Valuable and Belonging List: With patient Date for Pt to Sign Valuables/Belongings: 02/25/25 12:08:00 ?? Valuables & Belongings ?? Clothes Electronic devices Jewelry Monetary Items Personal devices Miscellaneous Medications (Valuables) Valuables at Bedside Pants, Shirt, Shoes, Undergarments, Other: socks, hoodie Cell phone, Other: ring sorter ?? Purse, Wallet, Other: lobo $70 Glasses ? Valuables Sent Home ? Valuables Sent to Security ? Valuables Sent to Locker ? Other Discharge Information ? Case Management Discharge Plan?? Discharge Plan?? Discharge Rx Program: Discharge Prescription Program Discharge Rx Program: Discharge Prescription Program Discharge Rx Program: Discharge Prescription Program ?? Pulmonary Rehab Status?? Pulmonary Rehab Discharge Status?? Respiratory Rate: 17 br/min ? Common Emergency Awareness Tips IS IT A STROKE? Act FAST and Check for these signs: FACE Does the face look uneven? ARM Does one arm drift down? SPEECH Does their speech sound strange? TIME Call at any sign of stroke ?? Heart Attack Signs Chest discomfort: Most heart attacks involve discomfort in the center of the chest and lasts more than a few minutes, or goes away and comes back. It can feel like uncomfortable pressure, squeezing, fullness or pain. Discomfort in upper body: Symptoms can include pain or discomfort in one or both arms, back, neck, jaw or stomach. Shortness of breath: With or without discomfort. Other signs: Breaking out in a cold sweat, nausea, or lightheaded. Remember, MINUTES DO MATTER. If you experience any of these heart attack warning signs, call to get immediate medical attention! ?? Smoking can increase your chances of developing chronic health problems and can cause harmful effects to other family members in your house. If you smoke, you are strongly encouraged to quit. Please call [facility] at [phone] or [phone] ([phone]) or log in to [email or web address] for referrals to smoking cessation programs. ?? 588 Suicide & Crisis Lifeline is available 03/06 if you or someone you know needs to find a reason to keep living. By calling 025 you'll be connected to a skilled, trained counselor at a crisis center in your area. INPATIENT DISCHARGE INSTRUCTIONS SIGNATURE PAGE KASHIF LANGLEY Location:[facility] Registration Date and Time:02/24/2025 17:04 EDT Primary Care Physician: Cynthia Reilly MD, Attending Physician: Duane TIAN, Teodoro, I KASHIF LANGLEY, have received the above patient education materials/instructions and have verbalized understanding. If ambulance or transport services are being used I further acknowledge being givena choice of service. ?? If you need to contact me, please call me at this number: . Patient/Acquisition Editor Name: Patient/Acquisition Editor Signature: Relationship to Patient: Witness Name/Signature: Date: * Hermelindo Mckoy MD: PERFORM Event Display: Patient Education Leaflets Authored Date: [id number] Cholecystectomy ?? 76807 Cholecystectomy You???ve had painful attacks caused by gallstones. To treat the problem, your healthcare provider wants to remove your gallbladder. This surgery is called a cholecystectomy. Taking out the gallbladder can ease pain. It will also help stop future attacks. You can live a healthy life without your gallbladder. You may also be able to go back to eating foods you liked before your gallbladder problemsstarted. Before your surgery To get ready: ??? Tell your provider what medicines you take. Include both prescription and yapm-xup-ovekcja medicines. Also include vitamins, herbs, and supplements. Tell them if you take prescription blood thinners. This includes warfarin, clopidogrel, and aspirin. ??? Have any tests your provider asks for, such as blood work or imaging. ??? Follow all directions you're given for not eating or drinking before your surgery. You??may need to take some medicine with sips of water. Talk with yourprovider. ??? You'll be asked to sign an informed consent document. Signing the form means you understand the surgery. It means you agree to the procedure. Be sure all of your questions are answered before you sign the form. ?? The day of surgery When you arrive, you'll get ready for surgery: ??? An IV (intravenous) line will be put into a veinin your arm or hand. This gives you fluids and medicine. ??? An anesthesiologist will talk with youabout anesthesia. This is medicine used to prevent pain. You'll get general anesthesia. This puts you into a deep sleep during the procedure. ?? During surgery There are??2 methods for taking out the gallbladder. Your healthcare provider will choose which wayis??best for you: ??? Laparoscopic cholecystectomy. This is most common. During surgery, 2 to 4 small cuts (incisions) are made. A thin tube with a camera is used. This is called a laparoscope. The scope is put through 1 of the cuts. It sends images to a video screen. Tiny tools for surgery are put through other cuts. The gallbladder is taken out using the scope and these tools. ??? Open cholecystectomy. One larger incision is made. The surgeon sees and works through this cut. Open surgery is most often used when scarring or other factors make it a better choice for you. In some cases, your provider may need to change from laparoscopic to open surgery during the procedure. Clips close off the duct connecting the gallbladder to the bile duct. The gallbladder is then removed. ?? After surgery You'll be sent to a recovery room to wake up from the anesthesia. You'll likely go home the same day. In some cases, you'll need to stay overnight. If you had open cholecystectomy, you may need to stay in the hospital for a few days.??When you're released to go home, have a family member or friend ready to drive you. If you're told to take medicines after surgery, do so as told. If you're told to do breathing exercises, do them as advised. You'll be scheduled for a follow-up visit. ?? Risks and possible complications of gallbladder surgery All surgeries have risks. The risks of gallbladder surgery include: ??? Bleeding ??? Infection ??? Injury to the common bile duct or nearby organs ??? Blood clots in the legs ??? Bile leaks ??? Hernia at incision site ??? Pneumonia ?? When to call the healthcare provider Call your surgeon if you have these symptoms: ??? Fever of 100.4??F (38.0??C) or higher, or as advised by your provider ??? Redness, pain, or fluid leaking at the incision site ??? Yellow color to your skin or eyes (jaundice) ??? Severe pain or cramping in your belly ??? Vomiting that continues and unable to keep down fluids ??? No bowel movement within 3 days ??? Trouble peeing ??? Mild or short-term rectal bleeding ??? Leg swelling ?? Call 911 Call 911 if you have any of these: ??? Sudden shortness of breath or trouble breathing ??? A lot of bleeding, or bleeding for a long time ?? Last Reviewed Date: 2024 00:00:00 ?? [employer]. All rights reserved. This information is not intended as a substitute for professional medical care. Always follow your healthcare professional's instructions. ?? * Hermelindo Mckoy MD: PERFORM Event Display: Patient Education Leaflets Authored Date: [id number] After Gallbladder Surgery ?? [id number] After Gallbladder Surgery You can often go home the same day as your surgery after laparoscopic surgery. In some cases, you may need to stay overnight. After open surgery, you'll usually need to stay??in the hospital for??2 to 5 days.??Once you???re at home, follow all your healthcare provider???s instructions. In the hospital Bandages will cover your incisions. And you may have special boots on your legs to help with circulation. Or you may get shots (injections) to prevent blood clots.??To aid recovery, you???ll be askedto get up and move as soon as possible. You may also be asked to use a device that helps promote deep breathing to??keep your lungs clear. ?? At home You can get back to your normal routine as soon as you feel able. To speed healing: ??? Take any prescribed pain medicines as directed. ??? Follow your healthcare provider???s instructions about bathing and caring for your incisions. ??? Walk and move around as often as possible. But follow your pro vider's instructions on when to start aerobic exercise and how much weight you can lift.? Ask your provider about driving and going back to work. This is often about??5 to 10 days after surgery. ?? Eating normally again Removing the gallbladder doesn???t mean you have to be on a special diet. But you may want to startwith light meals. It can also take a few weeks for your digestion to adjust. You may have indigestion, loose stools, or diarrhea. This is common. It should go away in time. ?? Following up Keep follow-up appointments during your recovery. These let your healthcare provider check your progress and answer any questions. Tell your provider if you have any new symptoms. Or if you have diarrhea that doesn???t go away. ?? When to call your healthcare provider Call your provider if you have any of the following: ??? Fever of 100.4?F (38?? C) or higher, oras advised by your provider ??? Chills ??? More pain, redness, or fluid leaking at an incision site??? Upset stomach (nausea) or vomiting that lasts more than??12 hours ??? Yellow skin or eyes ??? Diarrhea for a long time ??? Belly pain ??? Leg swelling ??? Trouble peeing ??? Mild or temporary bleeding ??? Not able to have a bowel movement for 3 days ?? Call 911 Call 911 right away if any of these occur: ??? Sudden shortness of breath or trouble breathing ??? A lot of bleeding or bleeding that lasts a long time ??? Fainting ?? Last Reviewed Date: 2024 00:00:00 ?? [employer] All rights reserved. This information is not intended as a substitute for professional medical care. Always follow your healthcare professional's instructions. ?? Patient Care team information Care Team Personnel Name: Cynthia Reilly MD Position: [facility] Physician - Primary Care Member Role: PCP Address: [address] Telecom: Name: Melania Blount RN Position: [facility] RN Member Role: Primary Care Nurse Name: Ge Oneal RN Position: [facility] RN Member Role: Primary Care Nurse Care Team Related Persons Name: DANIKA LANGLEY Name: MARY LANGLEY Insurance Providers Guarantor name: KASHIF LANGLEY Health Plan Information #: 1 Payer: [employer] POS Member Number: [id number] Policy Number: NA Group Number: [id number] Health Plan Information #: 2 Payer: [employer] POS Member Number: [id number] Policy Number: NA Group Number: [id number]
--- OUTSIDE RECORDS SUMMARY | 2025-03-02 15:38 | XMS_ITS | Clinical Summary ---
Author Organization [facility] Address [address] [place] [id number] Care Team Providers Care Software Implementation Project Manager Name Role Phone Cynthia Reilly MD Primary Care Provider [phone] Allergies No known active allergies Medications meloxicam [...] drink = 0.6 oz pur e alcohol) manager social media Comments Unknown Sex and Gender Information Value [...] Vaccines (1 of 2) 2022 COVID-19 Vaccine ( - 2023-2 5 season) 2024 Influenza Vaccine (Season Ended) 2025 Colonoscopy 12/14/2029 12/14/2019 Colorectal Cancer Screening 12/14/2029 RSV Vaccine (SCDM) (1 - 1-do se 75+ series) 2047 Insurance [employer] Care Teams Software Implementation Project Manager Relationship Specialty Start Date End Date Cynthia Reilly MD [address] [place] [address] PCP - General Family Medicine 06/28/21
== END 2025-03-02 14:21 | disposition home or self-care (01) ==
LOC: HO.HMCC 13:11
PROVIDERS: PCP Internal Medicine; Visit Provider Internal Medicine
DX: K80.20 Calculus of gallbladder without cholecystitis without obstruction (principal)

== ENCOUNTER → 2025-03-02 13:11 | Outpatient (BNVA) | payer OTHER, SELFPAY | PROVIDERS: PCP Internal Medicine; Visit Provider Internal Medicine ==

== ENCOUNTER 2025-04-07 12:00 | Outpatient (AMB) | payer OTHER, SELFPAY ==
--- NOTE | 2025-04-07 12:27 | MHC.PC.OV ---
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 Accompanied by: Self / Same As Patient Allergies No Known Allergies Allergy (Verified 04/07/25 12:29) Medication List - Last Reconciled 04/07/25 by Cynthia Reilly MD cholecalciferol (vitamin D3) 25 mcg PO DAILY ferrous sulfate (Feosol) 325 mg PO DAILY folic acid 1 mg PO DAILY infliximab-dyyb (Inflectra) IV lorazepam 0.5 mg PO DAILY PRN magnesium 250 mg PO DAILY methotrexate sodium 10 mg PO 3XW prednisone 5 mg PO DAILY prednisone mg PO turmeric root extract 500 mg PO DAILY zinc 50 mg PO DAILY Tobacco use date assessed: 02/04/25 Dental Screening Dental Screen Date: 02/04/25 HPI Adult annual exam HPI Details Patient presents for [facility] Medical History High serum vitamin B12 Knee pain, left Neck pain Joint pain, knee Annual physical exam Abnormal colonoscopy History of mammogram Anxiety Rheumatoid arthritis Surgical History Hx laparoscopic cholecystectomy Family History Father HTN (hypertension) Stroke Mother No problems noted. 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 1. Little interest or pleasure in doing things: not at all 2. Feeling down, depressed, or hopeless: not at all 3. Trouble falling or staying asleep, or sleeping too much: not at all 4. Feeling tired or having little energy: not at all 5. Poor appetite or overeating: not at all 6. Feeling bad about yourself - or that you are a failure or have let yourself or your family down: not at all 7. Trouble concentrating on things, such as reading the newspaper or watching television: not at all 8. Moving or speaking so slowly that other people could have noticed. Or the opposite - being so fidgety or restless that you have been moving around a lot more than usual: not at all 9. Thoughts that you would be better off or of hurting yourself in some way: not at all Total score: 0 Depression Screening Interpretation: Negative Depression Screening Done: Yes 12710 - PHQ-9 Billing: Yes Source: Developed by Drs. Brandon Payan, Goldie Pedersen, Zach Rodríguez and colleagues, with an educational caitlyn from [employer]. Thrive Questionnaire Date Thrive assessed: 04/07/25 I am a: Patient What is your living situation today?: I have a steady place to live Within the past 12 months, did the food you bought not last and you didn't have the money to get more?: Never true Within the past 12 months, did you worry whether your food would run out before you got money to buy more?: Never true Do you have trouble paying for medicines?: No Do you have trouble getting transportation to medical appointments?: No Do you have trouble paying your heating and electricity bill?: No Do you have trouble taking care of your child, family member or friend?: No Do you have trouble with day-to-day activities such as bathing, preparing meals, shopping, managing finances, etc.?: No Are you currently unemployed and looking for a job?: No Are you interested in more education?: No Please select the resources that you would like help with: None Currently or been in a relationship where the following occur: No concerns reported THRIVE Score: 0 AUDIT C Alcohol Use Questionnaire (AUDIT-C) 1. How often do you have a drink containing alcohol?: Never 3. How often do you have six or more drinks on one occasion?: Never Total Score: 0 Score Reviewed/Action Taken: Yes JASWINDER-7 AMB Questionnaire JASWINDER-7 Date JASWINDER - 7 assessed: 04/07/25 Feeling nervous, anxious, or on edge: 1 = Several days Not being able to stop or control worryin = Not at all Worrying too much about different things: 1 = Several days Trouble relaxin = Several days Being so restless that it is hard to sit still: 0 = Not at all Becoming easily annoyed or irritable: 1 = Several days Feeling afraid as if something awful might happen: 0 = Not at all Total JASWINDER-7 score (0-4 normal; 5-9 mild; 10-14 moderate; 15-21 severe): 4 Source: Developed by Drs. Brandon Payan, Goldie Pedersen, Zach Rodríguez and colleagues, with an educational caitlyn from [employer]. JASWINDER-7 Assessment Billing JASWINDER-7 Assessment Tool: JASWINDER-7 Assessment 38369 Review of Systems Const All systems reviewed & are unremarkable except as noted in HPI and below ENT Reports no additional complaints Card Reports no additional complaints Resp Reports no additional complaints GI Reports no additional complaints Reports no additional complaints Physical exam (Primary Care) Vital Signs: Last Vital Signs Temp 98.0 F 04/07/25 12:29 Pulse 72 04/07/25 12:29 Resp 16 04/07/25 12:29 BP 112/74 04/07/25 12:29 Pulse Ox 98 04/07/25 12:29 BMI result Body Mass Index 27.8 Tobacco/Smoking Status: Tobacco use Status Tobacco use date assessed 02/04/25 04/07/25 12:30 Patient Tobacco Use Status Never used Tobacco 04/07/25 12:30 e-Cigarette/Vaping Use Never Used 04/07/25 12:30 PHQ-9: PHQ-9 Score PHQ-9: Total score 0 04/07/25 12:30 Depression Screening Interpretation: Negative Thrive Assessment: Date of Thrive Assessment Date Thrive assessed 04/07/25 04/07/25 12:30 Currently or been in a relationship where the following occur: No concerns reported Const General: no acute distress HENMT Head: Yes normal to inspection Ears: TM's normal bilaterally Mouth: Normal oral and palatal mucosa present Eyes General: appearance normal, both eyes and all related structures Neck Neck: Yes no lymphadenopathy and Yes supple Resp Effort & Inspection: normal respiratory effort Auscultation: clear to auscultation bilaterally Cardio Rhythm: regular rhythm Heart sounds: S1 normal heart sound present and S2 normal heart sound present GI Inspection: Yes normal to inspection Palpation (GI): Soft to palpation Percussion: Yes normal to percussion Auscultation: normal bowel sounds Coding Level of Care Code Est Pt Prev Care 40-64y(44817) Diagnoses Rheumatoid arthritis M06.9 Vitamin D deficiency E55.9 Iron deficiency E61.1 Annual physical exam Z00.00 Additional Codes JASWINDER-7 Assessment Billing - JASWINDER-7 Assessment Tool: JASWINDER-7 Assessment 55178 ([id number]) PHQ-9 - 65244 - PHQ-9 Billing: Yes ([id number]) Assessment & Plan Assessment & Plan (1) Rheumatoid arthritis: Comment: f/u ATC Code(s): M06.9 - Rheumatoid arthritis, unspecified Category: Medical Plan: Continue current medication follow-up with rheumatology (2) Vitamin D deficiency: Code(s): E55.9 - Vitamin D deficiency, unspecified Category: Medical Plan: Continue vitamin-D (3) Iron deficiency: Code(s): E61.1 - Iron deficiency Category: Medical Plan: Continue iron supplement (4) Annual physical exam: Code(s): Z00.00 - Encounter for general adult medical examination without abnormal findings Category: Medical Plan: Well-balanced diet regular physical activity discussed with the patient. She is up-to-date with mammogram pelvic exam. Patient is due for repeat colonoscopy this year Orders: Orders Complete Blood Count Auto Diff Today E55.9 - Vitamin D deficiency, unspecified, E61.1 - Iron deficiency, M06.9 - Rheumatoid arthritis, unspecified, Z00.00 - Encounter for general adult medical examination without abnormal findings Lipid Panel Today E55.9 - Vitamin D deficiency, unspecified, E61.1 - Iron deficiency, M06.9 - Rheumatoid arthritis, unspecified, Z00.00 - Encounter for general adult medical examination without abnormal findings Vitamin B12 and Folate Today E55.9 - Vitamin D deficiency, unspecified, E61.1 - Iron deficiency, M06.9 - Rheumatoid arthritis, unspecified, Z00.00 - Encounter for general adult medical examination without abnormal findings Vitamin D 25-OH Total Today E55.9 - Vitamin D deficiency, unspecified Comprehensive [place]. Panel Fast Today E55.9 - Vitamin D deficiency, unspecified, E61.1 - Iron deficiency, M06.9 - Rheumatoid arthritis, unspecified, Z00.00 - Encounter for general adult medical examination without abnormal findings IRON PROFILE Today E55.9 - Vitamin D deficiency, unspecified, E61.1 - Iron deficiency, M06.9 - Rheumatoid arthritis, unspecified, Z00.00 - Encounter for general adult medical examination without abnormal findings TSH reflex Free T4 Today E55.9 - Vitamin D deficiency, unspecified, E61.1 - Iron deficiency, M06.9 - Rheumatoid arthritis, unspecified, Z00.00 - Encounter for general adult medical examination without abnormal findings Referrals Gastroenterology Referral Z00.00 - Encounter for general adult medical examination without abnormal findings
[2025-04-07 12:29] VITALS: BP 112/74; PULSE 72; RESP 16; TEMP 36.7; O2SAT 98; BMI 27.8
--- OUTSIDE RECORDS SUMMARY | 2025-04-07 12:46 | XMS_ITS | Encounter Summary ---
Author Organization [facility] Address [address] [place] [address] Care Team Providers Care Glue Mounter Operator Name Role Phone Unavailable Primary Care Provider Unavailabl e Encounter Details Date Type Department Care Team (Late st Contact Info) Description 03/31/2024 Scanned Document [facility] Department Of Infusion Medicine [place] [address] [place] [address] [phone] Bridget Mora APRN [address] [place] [address] Social History Tobacco Use Types Packs/Day Years [...] Care Team (Late st Contact Info) Description 04/29/2025 11:30 AM EDT Infusion [facility] Department Of Infusion Medicine [place] [address] [place] [address] [phone] documented as of this encounter Visit Diagnoses Not on filedocumented in this encounter
== END 2025-04-07 13:03 | disposition home or self-care (01) ==
LOC: HO.HMCC 12:01
PROVIDERS: PCP Internal Medicine; Visit Provider Internal Medicine
DX: M06.9 Rheumatoid arthritis, unspecified (principal); E55.9 Vitamin D deficiency, unspecified; E61.1 Iron deficiency; Z00.00 Encounter for general adult medical examination without abnormal findings

== ENCOUNTER → 2025-04-07 12:00 | Outpatient (BNVA) | payer OTHER, SELFPAY | PROVIDERS: PCP Internal Medicine; Visit Provider Internal Medicine | DX: Z00.00 Encounter for general adult medical examination without abnormal findings (principal); M06.9 Rheumatoid arthritis, unspecified; E55.9 Vitamin D deficiency, unspecified; E61.1 Iron deficiency; Z13.30 Encounter for screening examination for mental health and behavioral disorders, unspecified; Z13.31 Encounter for screening for depression | CPT/HCPCS: 96127 ==

== ENCOUNTER 2025-04-13 07:02 | Outpatient (REF) | payer OTHER, SELFPAY ==
[2025-04-13 10:20] LABS: MANUAL DIFF FLAG NO
[2025-04-13 10:49] LABS: Basophils Absolute Auto 0.1 X10*3/uL (0.0-0.2); Eosinophils Absolute Auto 0.2 X10*3/uL (0.0-0.4); Eosinophils Percent Auto 4.1 % (0-4); Hematocrit 36.6 % (37.0-47.0); Hemoglobin 12.5 g/dl (12.0-16.0); Imm Gran Abs Auto 0.01 X10*3/uL (0.00-0.03); Imm Gran Pct Auto 0.2 % (0.0-0.4); Lymphocytes Percent Auto 41.2 % (20-40); Mean Corpuscular HGB Conc 34.2 g/dl (31.0-35.0); Mean Corpuscular Hemoglobin 29.1 pg (27.0-33.0); Mean Corpuscular Volume 85.3 fL (80.0-98.0); Mean Platelet Volume 11.1 fL (9.4-12.3); Monocytes Absolute Auto 0.6 X10*3/uL (0.1-1.2); Monocytes Percent Auto 12.9 % (2-11); Neutrophils Percent Auto 40.6 % (45-73); Platelet Count 243 X10*3/uL (160-400); Red Blood Count 4.29 X10*6/uL (4.20-5.50); Red Cell Distribution Width 12.2 % (11.0-16.0); White Blood Count 4.9 X10*3/uL (4.8-10.8)
[2025-04-13 11:29] LABS: Alanine Aminotransferase 34 U/L (0-31); Alkaline Phosphatase 118 U/L (39-117); Anion Gap 7 (12-20); Aspartate Amino Transferase 31 U/L (5-31); Bilirubin Total 0.7 mg/dL (0.0-1.0); Blood Urea Nitrogen 14 mg/dL (9-16); Calcium 9.1 mg/dL (8.4-10.2); Carbon Dioxide 25 mmol/L (22-29); Chloride 111 mmol/L (96-108); Cholesterol 172 mg/dL (<200); Estimated Glomerular Filt Rate > 60; Glucose Fasting 85 mg/dL (60-99); HDL Cholesterol 58 mg/dL (>40); Iron 81 mcg/dL (30-160); LDL Cholesterol Calculated 96 mg/dL (<100); Percent Iron Saturation 30 % (15-50); Potassium 3.8 mmol/L (3.3-5.1); Sodium 139 mmol/L (135-145); Total Iron Binding Capacity 268 mcg/dL (228-428); Total Protein 7.5 g/dL (6.5-8.0); Triglycerides 90 mg/dL (<150); Unsaturated Iron Binding 187 ug/dL
[2025-04-13 11:46] LABS: TSH reflex Free T4 1.55 uIU/mL (0.32-4.0); Vitamin D 25-OH Total 36.3 ng/mL (>30)
[2025-04-13 11:50] LABS: Folate 14.6 ng/mL (> or = 4.0); Vitamin B12 496 pg/mL (200-900)
== END 2025-04-13 07:03 | disposition home or self-care (01) ==
LOC: HO.HMGCLDS 07:02
PROVIDERS: PCP Internal Medicine; Visit Provider Internal Medicine
DX: Z00.00 Encounter for general adult medical examination without abnormal findings (principal); E61.1 Iron deficiency; E55.9 Vitamin D deficiency, unspecified; M06.9 Rheumatoid arthritis, unspecified; Z13.6 Encounter for screening for cardiovascular disorders
CPT/HCPCS: 36415; 80053; 80061; 82306; 82607; 82746; 83540; 84443; 85025

== ENCOUNTER 2025-05-20 08:00 | Outpatient (REF) | payer OTHER, SELFPAY ==
--- OUTSIDE RECORDS SUMMARY | 2025-05-20 08:03 | XMS_ITS | Patient Health Record ---
Author Organization [facility] Address [address] [place] [address] Care Team Providers Care Crocodile Farmer Name Role Phone Melba TIAN, Cynthia Primary Care Provider Eric Pike Unavailable [phone] Reason For Referral No Information Medications Medication SIG (Take, Route, Fr equency, Duration) Notes Start Date End Date Status Zinc Active Magnesium Active Enbrel Active Calcium Active Fish Oil Active Meloxicam 5 MG TAKE 1 TABLET BY MARY ONCE DAILY WITH FOOD Orally Active Vitamin D Active Social History Tobacco use other than smoking: Question Answer Notes Are you an other tobacco user? No Plan Of Treatment Pending Test Test Name Order Date 07862, J0702- Neuroma/Injection 10/09/20 16 Insurance Providers Payer Name Payer Address Payer Phone Subscriber Number Group Number Insured Name Patient Relationship to Insured Coverage Start Date Coverage End Date [employer] [address] [place] [address] [phone] [id number] Jorge Carias Spouse - patient is the spouse of the insured Medical (General) History Medical History History ICD Code Measles Mumps Chicken pox Rheumatoid arthritis Surgical History Surgery Date(Month/Year)
--- OUTSIDE RECORDS SUMMARY | 2025-05-20 08:03 | XMS_ITS | Encounter Summary ---
Author Organization [facility] Address [address] [place] [id number] Care Team Providers Care Qa Software Tester Name Role Phone Unavailable Primary Care Provider Unavailabl e Encounter Details Date Type Department Care Team (Late st Contact Info) Description 03/31/2024 Scanned Document [facility] Department Of Infusion Medicine [place] [address] [place] [address] [phone] Bridget Mora APRN [address] [place] [address] Social History Tobacco Use Types Packs/Day Years [...] Care Team (Late st Contact Info) Description 06/15/2025 11:30 AM EDT [facility] [place] [address] [place] [address] [phone] documented as of this encounter Visit Diagnoses Not on filedocumented in this encounter
--- OUTSIDE RECORDS SUMMARY | 2025-05-20 08:03 | XMS_ITS | Clinical Summary ---
Author Organization [address] [place] Address [address] [place] [phone] Phone Care Team Providers Care Java Security Architect Name Role Phone Cynthia Reilly MD Primary Care Provider [phone] Allergies No known active allergies Medications CHOLECALCIFEROL , VITAMIN D3, ORAL Take by mouth. Activ e ferrous sulfate 325 mg (65 mg iron) EC tablet Take by mouth. Active INFLIXIMAB-DYYB SUBQ Inject under the skin. Active LORazepam (ATIVAN) 0.5 mg tablet Take 1 tablet (0.5 mg total) by mouth every 6 (six) hours if needed for anxiety. Max Daily Amount: 2 mg Active magnesium, amino acid chelate, 133 mg tablet Take 1 tablet (133 mg total) by mouth 2 (two) times a day. Active methotrexate (TREXALL) 10 mg tablet Take by mouth 1 (one) time per week Follow directions carefully, and ask to explain any part you do not understand. Take exactly as directed. Active predniSONE (DELTASONE) 5 mg tablet Take 1 tablet (5 mg total) by mouth 1 (one) time each day. Active TURMERIC ORAL Take by mouth. A ctive zinc acetate 50 mg (zinc) capsule Take by mouth. Activ e Encounters Date Type Department Care Team Description 04/15/2025 Telephone Gastroenterology - [address] [place] [phone] Cynthia Bowman MD from Last 3 Months Social History Tobacco Use Types Packs/Day Years Used Date Smoking Tobacco: Never Assessed Comments Unknown Sex and Gender Information Value Date Recorded Sex Assigned at Female 04/15/2025 1:39 PM EDT Legal Sex Female 8:54 PM EST Gender Identity Female 04/15/2025 1:39 PM EDT Sexual Orientation Not on file Plan of Treatment Upcoming Encounters Date Type Department Care Team (Late st Contact Info) Description 06/18/2025 1:30 PM EDT Appointment [facility] Endoscopy [address] [place] [phone] Cynthia Bowman MD [address] [facility] [address] [place] [address] Health Maintenance Due Date Last Done Comments Breast Cancer Screening 1972 COVID-19 Vaccine (#1) 1977 DTaP,Tdap,and Td Vaccines (1 - Tdap) 1991 Hepatitis B Vaccines (1 of 3 - 19+ 3-dose series) 1991 Cervical Cancer Screening: P ap Smear 1993 Pneumococcal Vaccine: 50+ Ye ars (1 of 1 - PCV) 2022 Zoster Vaccines (1 of 2) 2022 Colorectal Cancer Screening: Colonoscopy 04/15/2025 Depression Screening 04/15/2025 HIV Screening 04/15/2025 Hepatitis C Screening 04/15/2025 Social Influencers of Health Screening 04/15/2025 Influenza Vaccine (#1) 2025 HIB Vaccines Aged Out No longer eligi ble based on patient's age to complete this topic HPV Vaccines Aged Out No longer eligi ble based on patient's age to complete this topic Hepatitis A Vaccines Aged Out No long er eligible based on patient's age to complete this topic IPV Vaccines Aged Out No longer eligi ble based on patient's age to complete this topic MMR Vaccines Aged Out No longer eligi ble based on patient's age to complete this topic Meningococcal ACWY Vaccine Aged Out N o longer eligible based on patient's age to complete this topic Meningococcal B Vaccine Aged Out No l onger eligible based on patient's age to complete this topic Pneumococcal Vaccine: Pediat rics (0 to 5 Years) and At-Risk Patients (6 to 49 Years) Aged Out No longer eligible b ased on patient's age to complete this topic RSV Immunization Patients Un romeo 20 months Aged Out No longer eligible b ased on patient's age to complete this topic Varicella Vaccines Aged Out No longer eligible based on patient's age to complete this topic Insurance [employer] Care Teams Java Security Architect Relationship Specialty Start Date End Date Cynthia Reilly MD [address] [place] [phone] PCP - General Internal Medicine 04/15/25
--- OUTSIDE RECORDS SUMMARY | 2025-05-20 08:03 | XMS_ITS | Clinical Summary ---
Author Organization [facility] Address [address] [place] [address] Care Team Providers Care Clinical Quality Manager Name Role Phone Cynthia Reilly MD Primary Care Provider [phone] Allergies No known active allergies Medications meloxicam [...] = 0.6 oz pur e alcohol) social work administrator Comments Unknown Sex and Gender Information Value [...] 2023-2 5 season) 2024 Influenza Vaccine (#1) 2025 Colonoscopy 12/14/2029 12/14/2019 Colorectal Cancer Screening 12/14/2029 RSV Vaccine (SCDM) (1 - 1-do se 75+ series) 2047 Insurance [employer] Care Teams Clinical Quality Manager Relationship Specialty Start Date End Date Cynthia Reilly MD [address] [place] [address] PCP - General Family Medicine 06/28/21
[2025-05-20 11:03] LABS: Alanine Aminotransferase 28 U/L (0-31); Albumin Level 4.3 g/dL (3.5-5.0); Alkaline Phosphatase 110 U/L (39-117); Aspartate Amino Transferase 29 U/L (5-31); Total Protein 8.1 g/dL (6.5-8.0)
== END 2025-05-20 08:01 | disposition home or self-care (01) ==
LOC: HO.HMGCLDS 08:00
PROVIDERS: PCP Internal Medicine; Visit Provider Internal Medicine
DX: R79.89 Other specified abnormal findings of blood chemistry (principal); H01.009 Unspecified blepharitis unspecified eye, unspecified eyelid
CPT/HCPCS: 36415; 80076

== ENCOUNTER 2025-05-20 11:32 | Outpatient (AMB) | payer OTHER, SELFPAY ==
--- NOTE | 2025-05-20 11:33 | MHC.PC.OV ---
Vital Signs 05/20/25 11:38 Height 5 ft 6 in Weight 171 lb BMI 27.6 BP 120/70 Blood Pressure Location Lt brachial Position Sitting Respiration 18 Pulse 55 Pulse Source Pulse Oximeter Temp 98.4 F Temp Source Oral Pulse Oximetry (%) 97 Oxygen Delivery Method Room Air Intake Visit Reasons: swollen, red, painful RT eye Intake Note: Pt is here today for a sick visit. Pt c/o R eye redness, pain, swelling. Allergies No Known Allergies Allergy (Verified 05/20/25 11:40) Medication List - Last Reconciled 05/20/25 by Cynthia Reilly MD cholecalciferol (vitamin D3) 25 mcg PO DAILY ferrous sulfate (Feosol) 325 mg PO DAILY folic acid 1 mg PO DAILY infliximab-dyyb (Inflectra) IV lorazepam 0.5 mg PO DAILY PRN magnesium 250 mg PO DAILY prednisone mg PO turmeric root extract 500 mg PO DAILY zinc 50 mg PO DAILY Tobacco use date assessed: 05/20/25 Dental Screening Dental Screen Date: 02/04/25 HPI swollen, red, painful RT eye HPI Details Patient presents complaining of right lower lid swelling redness and purulent discharge for 3 days. Patient denies any change in the vision [facility] Medical History High serum vitamin B12 Knee pain, left Neck pain Joint pain, knee Annual physical exam Abnormal colonoscopy History of mammogram Anxiety Rheumatoid arthritis Surgical History Hx laparoscopic cholecystectomy Family History Father HTN (hypertension) Stroke Mother No problems noted. 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 Alcohol intake: never Patient Tobacco Use Status: Never used Tobacco e-Cigarette/Vaping Use: Never Used Second Hand Smoke Exposure: No service: No Current occupational status: employed Cognitive needs: No Hearing needs: No Vision needs: Yes Questionnaire Thrive Questionnaire Date Thrive assessed: 04/07/25 I am a: Patient What is your living situation today?: I have a steady place to live Within the past 12 months, did the food you bought not last and you didn't have the money to get more?: Never true Within the past 12 months, did you worry whether your food would run out before you got money to buy more?: Never true Do you have trouble paying for medicines?: No Do you have trouble getting transportation to medical appointments?: No Do you have trouble paying your heating and electricity bill?: No Do you have trouble taking care of your child, family member or friend?: No Do you have trouble with day-to-day activities such as bathing, preparing meals, shopping, managing finances, etc.?: No Are you currently unemployed and looking for a job?: No Are you interested in more education?: No Please select the resources that you would like help with: None Currently or been in a relationship where the following occur: No concerns reported THRIVE Score: 0 JASWINDER-7 AMB Questionnaire JASWINDER-7 Date JASWINDER - 7 assessed: 04/07/25 Source: Developed by Drs. Brandon Payan, Goldie Pedersen, Zach Rodríguez and colleagues, with an educational caitlyn from [employer]. Review of Systems Const All systems reviewed & are unremarkable except as noted in HPI and below Eyes Reports no additional complaints ENT Reports no additional complaints Card Reports no additional complaints Resp Reports no additional complaints Physical exam (Primary Care) Vital Signs: Last Vital Signs Temp 98.4 F 05/20/25 11:38 Pulse 55 05/20/25 11:38 Resp 18 05/20/25 11:38 BP 120/70 05/20/25 11:38 Pulse Ox 97 05/20/25 11:38 Oxygen Delivery Method Room Air 05/20/25 11:38 BMI result Body Mass Index 27.6 Tobacco/Smoking Status: Tobacco use Status Tobacco use date assessed 05/20/25 05/20/25 11:44 Patient Tobacco Use Status Never used Tobacco 05/20/25 11:44 e-Cigarette/Vaping Use Never Used 05/20/25 11:33 Thrive Assessment: Date of Thrive Assessment Date Thrive assessed 04/07/25 05/20/25 11:33 Currently or been in a relationship where the following occur: No concerns reported Const General: no acute distress HENMT Head: Yes normal to inspection Eyes Other: Right lower lid swelling erythema and small amount of purulent discharge Resp Effort & Inspection: normal respiratory effort Auscultation: clear to auscultation bilaterally Cardio Rhythm: regular rhythm Heart sounds: S1 normal heart sound present and S2 normal heart sound present Coding Level of Care Code Est Pt Level 3 (56845) Diagnoses Blepharitis H01.009 Assessment & Plan Assessment & Plan (1) Blepharitis: Code(s): H01.009 - Unspecified blepharitis unspecified eye, unspecified eyelid Category: Medical Plan: Erythromycin ointment prescribed and supportive care discussed with the patient Medications: New erythromycin 0.5 inches ophthalmic (eye) BID 3.5 grams 0RF
[2025-05-20 11:38] VITALS: BP 120/70; PULSE 55; RESP 18; TEMP 36.9; O2SAT 97; BMI 27.6
--- OUTSIDE RECORDS SUMMARY | 2025-05-20 12:10 | XMS_ITS ---
Author Name [facility] Organization Unknown History of Medication Use Medication Directions Dispensed Refills Start Date End Date Stat us acetaminophen (TYLENOL) tablet 975 mg 975 mg (rounded from 1,000 mg), Oral, Once, On Sarah 10/17/23 at 1300, For 1 dose, Administer 30 minutes prior to inFLIXimab-DYYB infusion. 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 EncounterDiagnosisAct [facility] Encounters Encounter Type Encounter Reason Primary Diagnosis Location Date Ambulatory Rheumatoid arthritis with rheumatoid factor of multiple sites without organ or systems involvement Rheumatoid arthritis with rheumatoid factor of multiple sites without organ or systems involvement [facility] 04/29/2025 Ambulatory [facility] 03/17/2025 Ambulatory Rheumatoid arthritis with rheumatoid factor of multiple sites without organ or systems involvement Rheumatoid arthritis with rheumatoid factor of multiple sites without organ or systems involvement [facility] 01/26/2025 Ambulatory [facility] 12/15/2024 Ambulatory Rheumatoid arthritis with rheumatoid factor of multiple sites without organ or systems involvement Rheumatoid arthritis with rheumatoid factor of multiple sites without organ or systems involvement [facility] 10/29/2024 Ambulatory Rheumatoid arthritis with rheumatoid factor of multiple sites without organ or systems involvement Rheumatoid arthritis with rheumatoid factor of multiple sites without organ or systems involvement [facility] 09/15/2024 Ambulatory [facility] 08/04/2024 Ambulatory Rheumatoid arthritis with rheumatoid factor of multiple sites without organ or systems involvement Rheumatoid arthritis with rheumatoid factor of multiple sites without organ or systems involvement [facility] 06/23/2024 Ambulatory Rheumatoid arthritis with rheumatoid factor of multiple sites without organ or systems involvement Rheumatoid arthritis with rheumatoid factor of multiple sites without organ or systems involvement [facility] 05/12/2024 Ambulatory Rheumatoid arthritis with rheumatoid factor of multiple sites without organ or systems involvement Rheumatoid arthritis with rheumatoid factor of multiple sites without organ or systems involvement [facility] 03/31/2024 Ambulatory [facility] 01/29/2024 Ambulatory Rheumatoid arthritis with rheumatoid factor of multiple sites without organ or systems involvement Rheumatoid arthritis with rheumatoid factor of multiple sites without organ or systems involvement [facility] 12/17/2023 Ambulatory Rheumatoid arthritis with rheumatoid factor of multiple sites without organ or systems involvement Rheumatoid arthritis with rheumatoid factor of multiple sites without organ or systems involvement [facility] 10/17/2023 Ambulatory Rheumatoid arthritis with rheumatoid factor of multiple sites without organ or systems involvement Rheumatoid arthritis with rheumatoid factor of multiple sites without organ or systems involvement [facility] 08/07/2023 Ambulatory Rheumatoid arthr itis with rheumatoid factor of multiple sites without organ or systems involvement [facility] 06/11/2023 Ambulatory Rheumatoid arthr itis with rheumatoid factor of multiple sites without organ or systems involvement [facility] 04/10/2023 Ambulatory [facility] 02/13/2023 Care Team Organization Name Specialty Phone Email Start Date End Da te [facility] 02/13/2023 02/13/2023 [facility] 02/13/2023
== END 2025-05-20 12:03 | disposition home or self-care (01) ==
LOC: HO.HMCC 11:32
PROVIDERS: PCP Internal Medicine; Visit Provider Internal Medicine
DX: H01.009 Unspecified blepharitis unspecified eye, unspecified eyelid (principal)

== ENCOUNTER 2025-06-18 07:58 | Outpatient (AMB) | payer OTHER, SELFPAY ==
--- OUTSIDE RECORDS SUMMARY | 2025-06-18 08:01 | XMS_ITS | Patient Health Record ---
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 Melba TIAN, Cynthia Primary Care Provider Eric Pike Unavailable [phone] Reason For Referral No Information Medications Medication [...] Treatment Pending Test Test Name Order Date 77472, [id number]- Neuroma/Injection 10/09/20 16 Insurance Providers Payer Name Payer Address Payer Phone Subscriber Number Group Number Insured Name Patient Relationship to Insured Coverage Start Date Coverage End Date Cigna [address] [place] [address] [phone] [id number] Jorge Carias Spouse - patient is the spouse of the insured Medical (General) History Medical History History ICD Code Measles Mumps Chicken pox Rheumatoid arthritis Surgical History Surgery Date(Month/Year)
--- OUTSIDE RECORDS SUMMARY | 2025-06-18 08:01 | XMS_ITS | Clinical Summary ---
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
--- OUTSIDE RECORDS SUMMARY | 2025-06-18 08:01 | XMS_ITS | Clinical Summary ---
Author Organization [facility] Address [address] [place] [address] Care Team Providers Care Yard Hostler Name Role Phone Unavailable Primary Care Provider Unavailabl e Allergies Active Allergy Reactions Criticality Noted Date Comments Sulfamethoxazole-Trimethopr im Unknown/Patient and Family Unable to Define Medium 02/12/2023 Salsalate Unknown/Patient and Family Unable to Define Medium 02/12/2023 Medications No known medications Active Problems Problem Noted Date Diagnosed Date Rheumatoid arthritis 02/12/2023 Encounters Date Type Department Care Team Description 06/15/2025 11:30 AM EDT Infusion [facility] Department Of Infusion Medicine [place] [address] [place] [phone] Rheumatoid arthritis involving multiple sites with positive rheumatoid factor (HCC) (Primary Dx) 04/29/2025 11:30 AM EDT Infusion [facility] Department Of Infusion Medicine [place] [address] [place] [phone] Rheumatoid arthritis involving multiple sites with positive rheumatoid factor (HCC) (Primary Dx) 04/22/2025 Orders Only [facility] Department Of Hematology/Oncology [place] [address] [place] [phone] Bridget Mora APRN from Last 3 Months [...] Sign Reading Time Taken Comments Blood Pressure 120/74 06/15/2025 11:27 AM EDT Pulse 54 06/15/2025 11:27 AM EDT Temperature 36.6 C (97.9 F) 06/15/2025 11:27 AM EDT Respiratory Rate - - Oxygen Saturation 98% 06/15/2025 11:27 AM EDT Inhaled Oxygen Concentration - - Weight 77.1 kg (170 lb) 06/15/2025 11:30 AM EDT Height - - Body Mass Index - - Plan of Treatment Upcoming Encounters Date Type Department Care Team (Late st Contact Info) Description 07/27/2025 11:30 AM EDT Infusion [facility] Department Of Infusion Medicine [place] [address] [place] [address] Health Maintenance Due Date Last Done Comments Hepatitis C Virus Screening 1972 COVID-19 Vaccine (#1) 1977 Quantiferon Gold TB 1982 HIV Screening 1985 DTaP/Tdap/Td Vaccines (1 - Tdap) 1991 Hepatitis B Vaccines (1 of 3 - 19+ 3-dose series) 05/12 Pap Smear (Ages 21-65) 1993 Mammogram 2012 Colonoscopy 2017 Pneumococcal Vaccines 50+ (1 of 1 - PCV) 2022 Zoster (Shingles) Vaccine (1 of 2) 2022 Influenza Vaccine 06/11/2025 Insurance [facility] HMO
[2025-06-18 08:50] VITALS: BP 116/60; PULSE 51; TEMP 37.1; O2SAT 99; BMI 27.1
--- NOTE | 2025-06-18 08:50 | MHC.OFFWIV ---
Intake Vital Signs 06/18/25 08:50 Height 5 ft 6 in Weight 168 lb BMI 27.1 BP 116/60 Blood Pressure Location Lt brachial Position Sitting Pulse 51 Pulse Source Pulse Oximeter Temp 98.7 F Temp Source Oral Pulse Oximetry (%) 99 Oxygen Delivery Method Room Air Intake Visit Reasons: EP-rt hand swollen Intake Note: presents with right hand pain and swelling for a couple days s/p infusion Patient Tobacco Use Status: Never used Tobacco Allergies No Known Allergies Allergy (Verified 06/18/25 08:52) Do you need a note to return to daycare/school/sports/work: Yes HPI HPI Comments History of Present Illness Details This is a 55-year-old female with a past medical history of rheumatoid arthritis, who receives infusions at an infusion center every 6 weeks for the past 2 years presenting for evaluation of swelling in her right hand that she first noticed the morning after her infusion on June 15. Patient reports having mild discomfort. Patient placed a cabbage leaf on the top of her right hand last night and states this morning the swelling has significantly improved. Patient denies having any fevers, chills or redness at the site of her previously placed IV. Patient has a colonoscopy scheduled today at 12:00 p.m. at [facility]. [facility] Medical History High serum vitamin B12 Knee pain, left Neck pain Joint pain, knee Annual physical exam Abnormal colonoscopy History of mammogram Anxiety Rheumatoid arthritis Surgical History Hx laparoscopic cholecystectomy Family History Father HTN (hypertension) Stroke Mother No problems noted. 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 Housing: House Alcohol intake: never Patient Tobacco Use Status: Never used Tobacco e-Cigarette/Vaping Use: Never Used Second Hand Smoke Exposure: No service: No Current occupational status: employed Cognitive needs: No Hearing needs: No Vision needs: Yes Review of Systems Const All systems reviewed & are unremarkable except as noted in HPI and below Denies body aches, Denies chills, Denies fatigue and Denies fever(s) Musc Details: swelling right hand Reports no additional complaints, Denies myalgias and Denies muscle cramps Skin/Breast Reports system reviewed and no additional complaints, except as documented, Denies change in pigmentation, Denies new lesions and Denies erythema Neuro Reports no additional complaints Psych Reports no additional complaints Endo Reports no additional complaints and Denies fatigue Aller/Immun Reports no additional complaints Physical Exam Vital Signs: Last Vital Signs Temp 98.7 F 06/18/25 08:50 Pulse 51 06/18/25 08:50 BP 116/60 06/18/25 08:50 Pulse Ox 99 06/18/25 08:50 Oxygen Delivery Method Room Air 06/18/25 08:50 BMI result Body Mass Index 27.1 Patient is afebrile. Const General: cooperative, healthy appearing, comfortable, no acute distress, well developed, alert, awake and Physically active; No acute distress Nutritional Appearance: average body habitus Orientation/consciousness: patient oriented x3 Limitations: no limitations Skin Other: there is no erythema, induration or fluctuance noted upon examination of the dorsal surface of the right hand; mild edema dorsal surface of right hand. Right radial pulse intact, no edema of right forearm. General skin exam: no rashes or lesions noted and turgor normal Lesions: no lesions Wounds: no wounds Neuro General: patient oriented x3 Extrem General: Yes normal to inspection, Yes full ROM (ROM intact right wrist and all digits of the right hand) and Yes capillary refill normal (digits of right hand) Psych Appearance: grossly normal Mental Status: mental status grossly normal Insight: Good insight present (Psych) Judgement: Good judgement present (Psych) Assessment & Plan Assessment & Plan (1) Edema of dorsum of hand: Comment: There is no erythema or evidence of a secondary cellulitis. Patient reports significant improvement overnight. Patient will advise staff at [facility] to not place IV in right upper extremity for today's colonoscopy. Code(s): R60.0 - Localized edema Plan: No further treatment is warranted at this time. Patient is advised to keep the right upper extremity elevated while at rest. Coding Level of Care Code Est Pt Level 3 (37939) Diagnoses Edema of dorsum of hand R60.0 Time Spent (min) 20
--- OUTSIDE RECORDS SUMMARY | 2025-06-18 13:30 | XMS_ITS | Encounter Summary ---
Author Organization [facility] Address [address] [place] [address] Care Team Providers Care Roof Foreman Name Role Phone Cynthia Reilly MD Primary Care Provider [phone] Reason for Visit * Hospital - Outpatient (Routine) - Authorized Specialty Diagnoses / Procedures Referred By Contac t Referred To Contact Gastroenterology Diagnoses History of colon polyps Procedures COLONOSCOPY Anesthesia - MAC; [facility]COPY Cynthia Bowman MD [address] [address] Phone: tel: fax: [facility] [address] [place] [address] Phone: tel: Referral ID Status Reason Start Date Expiration Date V isits Requested Visits Authorized [id number] Authorized 04/19/2025 04/19/2026 1 1 Encounter Details Date Type Department Care Team (Late st Contact Info) Description 06/18/2025 1:30 PM EDT Hospital Encounter [facility] [address] [place] [phone] Cynthia Bowman MD [address] [address] Kwasi Curtis MD [address] [facility] [address] [place] [address] Elvin Alvarez, [facility] [address] [place] [address] Social History Tobacco Use Types Packs/Day Years Used Date Smoking Tobacco: Never Assessed Comments Unknown Sex and Gender Information Value Date Recorded Sex Assigned at Female 04/15/2025 1:39 PM EDT Legal Sex Female 8:54 PM EST Gender Identity Female 04/15/2025 1:39 PM EDT Sexual Orientation Not on file documented as of this encounter Last Filed Vital Signs Vital Sign Reading Time Taken Comments Blood Pressure - - Pulse - - Temperature - - Respiratory Rate - - Oxygen Saturation - - Inhaled Oxygen Concentration - - Weight 77.1 kg (170 lb) 06/11/2025 12:00 PM EDT Height 167.6 cm (5' 6 ) 06/11/2025 12:00 PM EDT Body Mass Index 27.44 06/11/2025 12:00 PM EDT documented in this encounter Plan of Treatment Not on file documented as of this encounter Visit Diagnoses Not on filedocumented in this encounter Historical Medications * This list may reflect changes made after this encounter. oxyCODONE (ROXICODONE) 5 mg immediate release tablet Take 1 tablet (5 mg total) by mouth every 4 (four) hours if needed. for severe pain 02/26/2025 folic acid (FOLVITE) 1 mg tablet 12/26/2024 added in this encounter Care Teams Roof Foreman Relationship Specialty Start Date End Date Cynthia Reilly MD PCP - General Internal Medicine 04/15/25 documented as of this encounter
== END 2025-06-18 09:12 | disposition home or self-care (01) ==
PROVIDERS: PCP Internal Medicine; Visit Provider Physician Assistant
DX: R60.0 Localized edema (principal)

== ENCOUNTER 2025-10-12 11:21 | Outpatient (AMB) | payer OTHER, SELFPAY ==
[2025-10-12 11:22] VITALS: BP 114/68; PULSE 66; RESP 17; TEMP 37.2; O2SAT 98; BMI 28.4
--- NOTE | 2025-10-12 11:22 | MHC.PC.OV ---
Vital Signs 10/12/25 11:22 Height 5 ft 6 in Weight 176 lb BMI 28.4 BP 114/68 Blood Pressure Location Rt brachial Position Sitting Respiration 17 Pulse 66 Pulse Source Pulse Oximeter Temp 98.9 F Temp Source Oral Pulse Oximetry (%) 98 Oxygen Delivery Method Room Air Intake Visit Reasons: go over labs Intake Note: Pt is here today for a follow up visit on labs. Allergies No Known Allergies Allergy (Verified 10/12/25 11:32) Medication List - Last Reconciled 10/12/25 by Cynthia Reilly MD cholecalciferol (vitamin D3) 25 mcg PO DAILY erythromycin 0.5 inches ophthalmic (eye) BID ferrous sulfate (Feosol) 325 mg PO DAILY folic acid 1 mg PO DAILY infliximab-dyyb (Inflectra) IV lorazepam 0.5 mg PO DAILY PRN magnesium 250 mg PO DAILY oxycodone 5 mg PO Q4H PRN prednisone 2 mg PO zinc 50 mg PO DAILY Tobacco use date assessed: 10/12/25 Dental Screening Dental Screen Date: 02/04/25 HPI go over labs HPI Details Patient presents for the follow-up. 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 Patient had a blood work done by rheumatology with large platelets and smugde cell present on blood smear. [facility] Medical History High serum vitamin B12 Knee pain, left Neck pain Joint pain, knee Annual physical exam Abnormal colonoscopy History of mammogram Anxiety Rheumatoid arthritis Surgical History Hx laparoscopic cholecystectomy Family History Father HTN (hypertension) Stroke Mother No problems noted. 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: House Alcohol intake: never Patient Tobacco Use Status: Never used Tobacco e-Cigarette/Vaping Use: Never Used Second Hand Smoke Exposure: No service: No Current occupational status: employed Cognitive needs: No Hearing needs: No Vision needs: Yes Questionnaire Thrive Questionnaire Date Thrive assessed: 04/07/25 I am a: Patient What is your living situation today?: I have a steady place to live Within the past 12 months, did the food you bought not last and you didn't have the money to get more?: Never true Within the past 12 months, did you worry whether your food would run out before you got money to buy more?: Never true Do you have trouble paying for medicines?: No Do you have trouble getting transportation to medical appointments?: No Do you have trouble paying your heating and electricity bill?: No Do you have trouble taking care of your child, family member or friend?: No Do you have trouble with day-to-day activities such as bathing, preparing meals, shopping, managing finances, etc.?: No Are you currently unemployed and looking for a job?: No Are you interested in more education?: No Please select the resources that you would like help with: None Currently or been in a relationship where the following occur: No concerns reported THRIVE Score: 0 JASWINDER-7 AMB Questionnaire JASWINDER-7 Date JASWINDER - 7 assessed: 04/07/25 Source: Developed by Drs. Brandon Payan, Goldie Pedersen, Zach Rodríguez and colleagues, with an educational caitlyn from [employer]. Review of Systems Const All systems reviewed & are unremarkable except as noted in HPI and below ENT Reports no additional complaints Card Reports no additional complaints Resp Reports no additional complaints GI Reports no additional complaints Reports no additional complaints Physical exam (Primary Care) Vital Signs: Last Vital Signs Temp 98.9 F 10/12/25 11:22 Pulse 66 10/12/25 11:22 Resp 17 10/12/25 11:22 BP 114/68 10/12/25 11:22 Pulse Ox 98 10/12/25 11:22 Oxygen Delivery Method Room Air 10/12/25 11:22 BMI result Body Mass Index 28.4 Tobacco/Smoking Status: Tobacco use Status Tobacco use date assessed 10/12/25 10/12/25 11:37 Patient Tobacco Use Status Never used Tobacco 10/12/25 11:28 e-Cigarette/Vaping Use Never Used 10/12/25 11:28 Thrive Assessment: Date of Thrive Assessment Date Thrive assessed 04/07/25 10/12/25 11:28 Currently or been in a relationship where the following occur: No concerns reported Const General: no acute distress HENMT Head: Yes normal to inspection Neck Neck: Yes no lymphadenopathy and Yes supple Resp Effort & Inspection: normal respiratory effort Auscultation: clear to auscultation bilaterally Cardio Rhythm: regular rhythm Heart sounds: S1 normal heart sound present and S2 normal heart sound present GI Inspection: Yes normal to inspection Palpation (GI): Soft to palpation Coding Level of Care Code Est Pt Level 4 (58523) Diagnoses Vitamin D deficiency E55.9 Vitamin B 12 deficiency E53.8 Rheumatoid arthritis M06.9 Assessment & Plan Assessment & Plan (1) Vitamin D deficiency: Code(s): E55.9 - Vitamin D deficiency, unspecified Category: Medical Plan: Restart vitamin-D (2) Vitamin B 12 deficiency: Code(s): E53.8 - Deficiency of other specified B group vitamins Category: Medical Plan: Patient will restart vitamin B12 level and check the level in 3 weeks (3) Rheumatoid arthritis: Comment: f/u ATC Code(s): M06.9 - Rheumatoid arthritis, unspecified Category: Medical Plan: Continue current medications. Follow-up with rheumatology. Patient will have a repeat blood work in 3 weeks including CBC and folic acid levels Orders: Orders Vitamin B12 and Folate 3 Weeks E53.8 - Deficiency of other specified B group vitamins, E55.9 - Vitamin D deficiency, unspecified Comprehensive Met. Panel 3 Weeks E53.8 - Deficiency of other specified B group vitamins, E55.9 - Vitamin D deficiency, unspecified Complete Blood Count Man Dif 3 Weeks E53.8 - Deficiency of other specified B group vitamins, E55.9 - Vitamin D deficiency, unspecified Vitamin D 25-OH Total 3 Weeks E53.8 - Deficiency of other specified B group vitamins, E55.9 - Vitamin D deficiency, unspecified Medications: New methotrexate sodium 7.5 mg PO QWEEK 90 tabs 0RF folic acid 0.8 mg PO DAILY 90 caps 0RF Refilled lorazepam 0.5 mg PO DAILY PRN 7 tabs 0RF anxiety Discontinued erythromycin Discontinued Reason: Doctor's Order 0.5 inches ophthalmic (eye) BID 3.5 grams 0RF
--- OUTSIDE RECORDS SUMMARY | 2025-10-12 13:33 | XMS_ITS ---
complete this topic HIB Vaccines Aged Out No longer eligi [...] to complete this topic RSV Immunization Patients Under 20 months Aged Out No longer eligible b ased on patient's age to complete this topic Varicella Vaccines Aged Out No longer eligible based on patient's age to complete this topic Procedures Procedure Name Priority Date/Time Associated Diagnosis Comments COLONOSCOPY Routine 06/18/2025 1:19 PM EDT History of colon polyps from Last 3 Months or Most Recently Relevant to Health Maintenance Results * COLONOSCOPY Anesthesia - MAC; [facility] ENDOSCOPY (06/18/2025 1:19 PM EDT) Anatomical Region Laterality Modality Other 06/18/2025 1:04 PM EDT Impressions 06/18/2025 1:20 PM EDT - The examined portion of the ileum was normal. - The entire examined colon is normal on direct and retroflexion views. - No specimens collected. Recommendation: - Repeat colonoscopy in 7 years for surveillance. Narrative 06/18/2025 1:20 PM EDT [facility] GI Patient Name: Kashif Carias Procedure Date: 06/18/2025 1:04 PM Date of : 1970 Age: 55 Gender: Female Note Status: Finalized Attending MD: Cynthia Bowman MD, Procedure Date No Time: 06/18/2025 Procedure: Colonoscopy Indications: High risk colon cancer surveillance: Personal history of traditional serrated adenoma of the colon Providers: Cynthia Bowman MD Referring MD: Cynthia Bowman MD Medicines: Propofol per Anesthesia Complications: No immediate complications. Estimated Blood Loss: Estimated blood loss: none. Procedure: Pre-Anesthesia Assessment: - ASA Grade Assessment: II - A patient with mild systemic disease. After I obtained informed consent, the scope was passed under direct vision. Throughout the procedure, the patient's blood pressure, pulse, and oxygen saturations were monitored continuously.The Olympus Pediatric Colonoscope was introduced through the anus and advanced to the terminal ileum. The colonoscopy was performed without difficulty. The patient tolerated the procedure well. The quality of the bowel preparation was good. Findings: The perianal and digital rectal examinations were normal. The terminal ileum appeared normal. The entire examined colon appeared normal on direct and retroflexion views. Procedure Code(s): --- Professional --- G0105, Colorectal cancer screening; colonoscopy on individual at high risk Diagnosis Code(s): --- Professional --- Z86.010, Personal history of colonic polyps CPT copyright 2020 [employer]. All rights reserved. The codes documented in this report are preliminary and upon car dumper operator review may be revised to meet current compliance requirements. Cynthia Bowman MD 06/18/2025 1:20:23 PM This report has been signed electronically.Cynthia Bowman MD Number of Addenda: 0 Note Initiated On: 06/18/2025 1:04 PM Scope In: Scope Out: Endoscopy Department at [facility] - [address] [place] [id number] Procedure Note Cynthia Bowman MD - 06/18/2025 [facility] GI Patient Name: Kashif Carias Procedure Date: 06/18/2025 1:04 PM Date of : 1970 Age: 55 Gender: Female Note Status: Finalized Attending MD: Cynthia Bowman MD, Procedure Date No Time: 06/18/2025 Procedure: Colonoscopy Indications: High risk colon cancer surveillance: Personalhistory of traditional serrated adenoma of the colon Providers: Cynthia Bowman MD Referring MD: Cynthia Bowman MD Medicines: Propofol per Anesthesia Complications: No immediate complications. Estimated Blood Loss: Estimated blood loss: none. Procedure: Pre-Anesthesia Assessment: - ASA Grade Assessment: II - A patient with mild systemic disease. After I obtained informed consent, the scope was passed under direct vision. Throughout theprocedure, the patient's blood pressure, pulse, and oxygen saturations were monitored continuously.The Olympus Pediatric Colonoscope was introduced through theanus and advanced to the terminal ileum. The colonoscopy was performed without difficulty. The patient tolerated the procedure well. The quality of thebowel preparation was good. Findings: The perianal and digital rectal examinations were normal. The terminal ileum appeared normal. The entire examined colon appeared normal on direct and retroflexion views. Procedure Code(s): --- Professional --- G0105, Colorectal cancer screening; colonoscopy on individual at high risk Diagnosis Code(s): --- Professional --- Z86.010, Personal history of colonic polyps CPT copyright 2020 [employer]. All rights reserved. The codes documented in this report are preliminary and upon car dumper operator reviewmay be revised to meet current compliance requirements. Cynthia Bowman MD 06/18/2025 1:20:23 PM This report has been signed electronically.Cynthia Bowman MD Number of Addenda: 0 Note Initiated On: 06/18/2025 1:04 PM Scope In: Scope Out: Endoscopy Department at [address] [id number] IMPRESSION: - The examined portion of the ileum was normal. - The entire examined colon is normal on direct and retroflexion views. - No specimens collected. Recommendation: - Repeat colonoscopy in 7 years for surveillance. Cynthia Bowman MD GI~PROCEDURE ORDERABLES Final Result from Last 3 Months or Most Recently Relevant to Health Maintenance Insurance [employer] Care Teams Insulation Engineman Relationship Specialty Start Date End Date Cynthia Reilly MD PCP - General Internal Medicine 04/15/25
== END 2025-10-12 12:36 | disposition home or self-care (01) ==
LOC: HO.HMCC 11:22
PROVIDERS: PCP Internal Medicine; Visit Provider Internal Medicine
DX: E55.9 Vitamin D deficiency, unspecified (principal); E53.8 Deficiency of other specified B group vitamins; M06.9 Rheumatoid arthritis, unspecified